=== PATIENT | female | born 1940 | race Caucasian/White ===

== ENCOUNTER 2016-06-09 06:17 | Day surgery (SDC) | payer MEDICARE ==
[2016-06-07 13:32] LABS: HEMATOCRIT 38.8 % (36.0-48.0); HEMOGLOBIN 12.3 g/dL (12-16); MCH 30.4 pg (26.0-34.0); MCHC 31.7 g/dL (31.0-37.0); MEAN PLATELET VOLUME 11.1 fL (7.4-10.4); RBC 4.04 10x6/uL (4.00-5.40); RDW 14.2 % (11.5-14.5); WBC 4.1 10x3/uL (4.8-10.8)
[2016-06-07 13:48] LABS: ANION GAP 7.4 mmol/L (8-16); CARBON DIOXIDE 35.6 mmol/L (21.0-32.0); CREATININE - SERUM 1.5 mg/dL (0.6-1.3)
[~2016-06-09] VITALS: Ht 165.1 cm; Wt 115.7 kg
[~2016-06-09 06:17] MED LIST: ACTOS45 MG PO; AMBIEN5 MG PO; ASPIRIN EC81 M1 PO; BACTRIM DS TABL1 TAB PO; CALTRATE-600600 MG PO; CELEXA10 MG PO; COUMADIN7.5 MG PO; EC-NAPROSYN500 MG PO; FERROUS SULFAT325 MG PO; GLIPIZIDE10 MG PO; GLUCOTROL XL 1010 MG PO; HUMULIN N100 U/ML SC; HUMULIN R100 U/ML SC; HYDROCHLOROTH12.5 M1 PO; HYDROCODONE-APA1 TA3 PO; HYDROCODONE-APA1 TAB PO; IPRAT-ALBUT 0.5-3 ML UPD; K-DUR20 MEQ; K-DUR20 MEQ PO; LASIX40 MG PO; LEVAQUIN500 MG PO; LIPITOR10 MG PO; LOVENOX INJ100 MG/ML SC; LOVENOX30 MG/0.3 SC; MEVACOR20 MG PO; MONOPRIL10 MG PO; MUCINEX DM ER1 EAC1 PO; NEURONTIN600 MG PO; NEURONTIN800 MG PO; NORCO 7.5/325 T1 TA1 PO; NOVOLIN N100 U/ML SQ; PERCOCET 5-3251 TAB PO; PHENAZOPYRIDIN200 MG PO; PLAVIX75 MG PO; PRILOSEC20 MG PO; PROCARDIA XL60 MG PO; PROMETHAZINE W473 M1 PO; PROTONIX40 MG PO; RESTORIL15 MG PO; TESSALON PERLE100 MG PO; VIBRAMYCIN 100100 MG PO; ZANAFLEX4 MG PO
[2016-06-09 14:02] VITALS: BP 144/58; Ht 165.1 cm; Wt 115.7 kg
[2016-06-09] MEDS ORDERED: HYDROCODONE-APA1 TAB PO (15:37)
--- NOTE | 2016-06-09 18:00 | NUR ---
1740 V/S STABLE LEFT WRIST DRESSING C/D/I AND DRESSING C/D/I NO BLEEDING ARM ICED AND ELEVATED.M WIGGLES FINGERS. LT ARM IN SLING. C/L IN REACH FAMILY PRESENT. VOIDED AND HAS PULLUP ON.
--- NOTE | 2016-06-09 18:02 | NUR ---
1745 DISCHARGE INSTRUCTIONS GIVEN. BLOCK INFO SCRIPT GONE OVER. INSTRUCTED TO ICE AND ELEVATE AND KEEP SLING ON WHILE UP TIL TOTAL FEELING IS BACK IN LT ARM. NAIL BEDS COLOR PINK WIGGLES FINGERS. WENT OVER FOLLOW UP APPOINTMENT AND TO CONTINUE HOME MEDS AND DIET. VERBALLY UNDERSTANDS.
--- NOTE | 2016-06-09 18:17 | NUR ---
1800 TO HOME VIA W/C WITH FAMILY.
--- NOTE | 2016-06-10 11:39 | OP ---
PATIENT NAME: AVI GROVES MEDICAL RECORD: [id number] :40 LOCATION:D.OPS ADMISSION DATE: SURGEON: CHRIS GARCIA MD DATE OF OPERATION: 06/09/2016 Orthopedic Surgery Operative Note PREOPERATIVE DIAGNOSIS: Intra-articular comminuted distal radius fracture of the left wrist. POSTOPERATIVE DIAGNOSIS: Intraarticular comminuted distal radius fracture of the left wrist. PROCEDURE: Open reduction internal fixation of the intraarticular comminuted distal radius fracture of the left wrist. SURGEON: Chris Garcia MD. ANESTHESIA: General. INTRAOPERATIVE COMPLICATIONS: None. SUMMARY OF PATHOLOGIC FINDINGS: The patient had a fracture that extended between the scaphoid and lunate fossae and it had loss of volar tilt. OPERATIVE SUMMARY IN DETAIL: After obtaining the appropriate preoperative orthopedic surgery consents as well as anesthetic consultation, evaluation and clearance, the patient was brought to the operating room and placed on the operating table in supine position. After general laryngeal mask was administered, tourniquet was placed about the proximal aspect of the left upper extremity. Left upper extremity was then prepped and draped in routine sterile fashion. The arm was elevated and exsanguinated, tourniquet inflated to 250 mmHg. Curvilinear incision was made in keeping with a volar's Harshal approach. Dissection was taken down along the flexor carpi radialis, used this as a landmark, it was gently dissected down. The carpal canal was completely opened up into the palmar aspect of the hand and released. The median nerve was retracted to the ulnar aspect, pronator quadratus was taken down. The fracture was identified. Reduction maneuver was performed under fluoroscopy. The plate was put in place while the reduction was held near anatomic position. Serial and sequential drill and fill technique was done with the small VariAx plate under fluoroscopic guidance. Having completed this, final radiographs were submitted for radiologist's review, AP and lateral planes. Wound was then irrigated and closed with 2-0 Vicryl and 4-0 Prolene in running fashion. Sterile dressings were applied. Tourniquet was deflated. A 3 x 12 volar splint was applied. The patient was awakened, taken to recovery room in stable condition. All final needle and sponge counts were correct. TRANSINT:[id number] Voice Confirmation ID: [id number] DOCUMENT ID: [id number] OPERATIVE REPORT [id number] AVI GROVES MD, CHRIS DAVENPORT at 1139 CC: [id number] DICTATION DATE: 06/09/162031 ASSISTANT PROFESSOR: 06/10/16 0228 [facility] 06/09/16 [place] [id number] [place] [id number]
== END 2016-06-09 18:00 | disposition home or self-care (01) ==
LOC: D.OPS 06:17 → D.PAN 13:45 → D.OPS 13:45
PROVIDERS: Anesthesiology
DX: S52.572A Other intraarticular fracture of lower end of left radius, initial encounter for closed fracture (principal); I25.10 Atherosclerotic heart disease of native coronary artery without angina pectoris; I10 Essential (primary) hypertension; K21.9 Gastro-esophageal reflux disease without esophagitis; Z95.5 Presence of coronary angioplasty implant and graft; G47.30 Sleep apnea, unspecified; E66.9 Obesity, unspecified; E11.9 Type 2 diabetes mellitus without complications; Z01.812 Encounter for preprocedural laboratory examination

== ENCOUNTER 2017-03-16 06:33 | Day surgery (SDC) | payer MEDICARE ==
[~2017-03-16] VITALS: Ht 165.1 cm; Wt 116.1 kg
--- NOTE | ~2017-03-16 | OP ---
PATIENT NAME: AVI GROVES MEDICAL RECORD: [id number] :40 LOCATION:D.OPS ADMISSION DATE: SURGEON: JUAN ARREGUIN MD DATE OF OPERATION: 03/16/2017 PREOPERATIVE DIAGNOSES: 1. Bleeding external hemorrhoids. 2. Coronary artery disease. 3. Hypertension. 4. Hyperlipidemia. 5. Congestive heart failure, undifferentiated. 6. Diabetes mellitus. POSTOPERATIVE DIAGNOSES: 1. Bleeding external hemorrhoids. 2. Coronary artery disease. 3. Hypertension. 4. Hyperlipidemia. 5. Congestive heart failure, undifferentiated. 6. Diabetes mellitus. PROCEDURE: PPH stapled hemorrhoidectomy. SURGEON: Juan Arreguin MD REPORT OF PROCEDURE: The patient was placed in the jackknife prone position after spinal anesthesia was obtained. We did a 360 degree inspection of the perianal region using a Hill-Joshua retractor. There were noted to be hemorrhoids present circumferentially with no sign of any active bleeding currently. The hemorrhoids were mainly internal, but had mixed component. The PPH anoscope was then inserted and sutured down on all 4 sides using interrupted 3-0 silk. Using this, we were able to place a pursestring in the distal rectum using 2-0 Prolene. The PPH stapler was inserted into the anus and distal rectum and fired after we had determined that there was no connection of the tissue with the posterior wall of the vagina. The ring of tissue, which was removed was complete. At the conclusion of the case, there was no sign of any bleeding from the staple line. We irrigated out the anus thoroughly with normal saline and then inserted a piece of Gelfoam dipped in Americaine. The anoscope was then removed. COMPLICATIONS: None. CONDITION: Stable. ANESTHESIA: Spinal. BLOOD LOSS: Minimal. TRANSINT:[id number] Voice Confirmation ID: [id number] DOCUMENT ID: [id number] OPERATIVE REPORT [id number] GROVES,NBACaro JUAN ARREGUIN MD CC: XIMENA DIETRICH [id number] DICTATION DATE: 03/16/17 0939 SIGN WRITER LETTERER OR PAINTER: 03/16/17 1033 [facility] [address] [place] [address]
[~2017-03-16 06:33] MED LIST changes: +OMEPRAZOLE20 M1 PO
[2017-03-16 07:33] LABS: BASOPHILS 0.9 % (0-2); EOSINOPHILS 2.5 % (0-7); HEMATOCRIT 36.8 % (36.0-48.0); HEMOGLOBIN 11.9 g/dL (12-16); LYMPHOCYTES 34.8 % (15-50); MCH 30.7 pg (26.0-34.0); MCHC 32.3 g/dL (31.0-37.0); MCV 95.1 fL (80.0-100.0); MEAN PLATELET VOLUME 11.2 fL (7.4-10.4); MONOCYTES 11.5 % (2-11); NEUTROPHILS 50.3 % (40-80); PLATELET COUNT 157 10x3/uL (130-400); RBC 3.87 10x6/uL (4.00-5.40); WBC 3.2 10x3/uL (4.8-10.8)
[2017-03-16 07:36] VITALS: BP 153/76; Ht 165.1 cm; Wt 116.1 kg
[2017-03-16 07:48] LABS: ANION GAP 11.4 mmol/L (8-16); CALCIUM 8.9 mg/dL (8.5-10.1); CARBON DIOXIDE 30.4 mmol/L (21.0-32.0); CREATININE - SERUM 1.4 mg/dL (0.6-1.3); POTASSIUM - SERUM 3.8 mmol/L (3.5-5.1)
[2017-03-16] MEDS ORDERED: HYDROCODONE-APA1 TAB PO (09:35)
== END 2017-03-16 14:50 | disposition home or self-care (01) ==
LOC: D.OPS 06:33
PROVIDERS: Anesthesiology
DX: K64.4 Residual hemorrhoidal skin tags (principal); I25.10 Atherosclerotic heart disease of native coronary artery without angina pectoris; I11.0 Hypertensive heart disease with heart failure; I50.9 Heart failure, unspecified; E78.5 Hyperlipidemia, unspecified; E11.9 Type 2 diabetes mellitus without complications; Z01.812 Encounter for preprocedural laboratory examination

== ENCOUNTER 2017-10-06 08:29 | Outpatient (CLI) | payer MEDICARE ==
[~2017-10-06] VITALS: Ht 165.1 cm; Wt 115.9 kg
--- NOTE | ~2017-10-06 | OP ---
PATIENT NAME: AVI GROVES MEDICAL RECORD: [id number] :40 LOCATION:D.CAT ADMISSION DATE: SURGEON: RUSSELL GRACE MD DATE OF OPERATION: 10/06/2017 PROCEDURES: 1. PTCA and stent of LAD. 2. Left heart catheterization. 3. Selective coronary angiography. 4. Left ventriculogram. INDICATION: Angina and coronary artery disease. PROCEDURE IN DETAIL: After informed consent was obtained and after detailed explanation of risks, benefits as well as alternative therapies, the patient elected to proceed with angiogram and angioplasty. The right femoral area was prepped and draped in normal sterile fashion. The right femoral artery was cannulated via modified Seldinger technique with placement of 6-Azeri sheath. All catheters exchanged through this sheath. FINDINGS: The left ventriculogram was performed in standard 30-degree JUDD view, reveals good cardiac wall motion throughout all segments. Overall ejection fraction estimated at 55%. SELECTIVE CORONARY ANGIOGRAPHY: 1. Left main is with no significant angiographic disease. 2. Left anterior descending has previously placed stents. There is 85% in-stent restenosis in the mid vessel. 3. Left circumflex has mild irregularities, but no flow-limiting stenosis. 4. Right coronary has mild irregularities, but no flow-limiting stenosis. PTCA AND STENT OF THE LAD FOR IN-STENT RESTENOSIS: The stent used was a 2.5 x 18-mm Sutton. Result was 0% residual stenosis. OVERALL IMPRESSION: Successful PTCA and stent of the LAD going from 85% initial stenosis to 0% residual. TRANSINT:[id number] Voice Confirmation ID: [id number] DOCUMENT ID: [id number] RUSSELL GRACE MD at 1843 CC: [id number] DICTATION DATE: 10/06/17 1049 WEB PRESS OPERATOR ASSISTANT: 10/06/17 1055 DEP CLI 10/06/17 [place] [id number]
--- NOTE | ~2017-10-06 | HEMODYNAMI ---
PATIENT:AVI GROVES MEDICAL RECORD: [id number] : 40 LOCATION:CANDY ADMISSION DATE: 10/06/17 Generatedon:10/06/201710:53 Patient name: AVI GROVES Patient #: [id number] SSN: DO B: 1940 Date of study: 10/06/2017 Page: Of Hemodynamic Procedure Report Patient Data Patient Demographics Procedure consent was obtained First Name: AVI Gender: Female Last Name: GERMAIN : 1940 Patient #: [id number] Age: 77 year(s) Race: Additional ID: [id number] Contact details [address]: [address] [place] [address] State: [place] City: [place] Zip code: [address] Past Medical History History of disease Date Diagnosis Comments CAD Allergies: No known allergies Admission Admission Data Admission Date: 10/06/2017 Admission Time: 8:29 Procedure Procedure Types Cath Procedure Diagnostic Procedure [facility] w/Coronaries PCI Procedure Coronary Stent Coronary Stent Initial Procedure Description Procedure Date Procedure Date: 10/06/2017 Procedure Start Time: 10:35 Procedure End Time: 10:52 Procedure Staff Name Function Juice Roy MD Performing Physician Tj Escalona RT Marketing Program Manager Chelo Benito RT Monitor Corazon Ball RN Nurse China Boogie RT Scrub Procedure Data Cath Procedure Fluoroscopy Diagnostic fluoroscopy Total fluoroscopy Time: 1.8 time: 1.8 min min Diagnostic fluoroscopy Total fluoroscopy dose: 582 dose: 582 mGy mGy Contrast Material Contrast Material Type Amount (ml) Isovue 300 62 Entry Location Entry Primary Successful Side Size Upsize Upsize Entry Closure Succes sful Closure Location (Fr) 1 (Fr) 2 (Fr) Remarks Device Remarks Femoral Right 5 Fr 6 Fr Exoseal artery Short Estimated blood loss: 10 ml Diagnostic catheters Device Type Used For End Catheter Placement MULTIPACK Pigtail 5 Fr LV Angiography catheter MULTIPACK JL 4.0 5Fr Left Coronary catheter Angiography MULTIPACK 3DRC 5Fr Right Coronary catheter Angiography Procedure Complications No complications Procedure Medications Medication Administration Route Dosage Oxygen etCO2 Nasal cannula 2 l/min Lidocaine 2% added to field 20 Heparin Flush Bag added to field 2 bags (1000units/500ml NS) 0.9% NaCl I.V. 100 ml/hr Versed I.V. 1 mg Fentanyl I.V. 50 mcg Versed I.V. 1 mg Fentanyl I.V. 50 mcg Heparin Bolus I.V. 4000 units Integrilin (Bolus I.V. 10.7 ml 2mg/ml) Versed I.V. 1 mg Fentanyl I.V. 50 mcg Plavix P.O. 600 mg Hemodynamics Rest Heart Rate: 75 (bpm) Snapshots Pre Cath Intra NCS Post Cath Vital Signs Time Heart Resp SPO2 etCO2 NIBP (mmHg) Rhythm Pain Sedation Rate (ipm) (%) (mmHg) Status Level (bpm) 10:30:13 72 12 100 42.8 Measuring NSR 0 (11) 10(A) , No pain 10:30:33 72 19 100 42.8 186/79(150) NSR 0 (11) 10(A) , No pain 10:35:57 74 13 99 47.3 173/75(153) NSR 0 (11) 10(A) , No pain 10:41:12 86 16 96 36 146/87(130) NSR 0 (11) 9(A) , No pain 10:46:11 86 12 97 45.1 Measuring NSR 0 (11) 9(A) , No pain 10:50:52 83 9 97 48.1 198/102(156) NSR 0 (11) 10(A) , No pain Medications Time Medication Route Dose Verified Delivered Reason Notes Effectiveness by by 10:32:27 Oxygen etCO2 2 Juice Brandieie used for Nasal l/min Kirill Ball RN procedure cannula 10:32:33 Lidocaine 2% added 20ml Juice Bose for local to vial Kirill Roy MD anesthetic field 10:32:41 Heparin Flush added 2 Juice Juice used for Bag to bags Kirill Roy MD procedure (1000units/500ml field NS) 10:32:50 0.9% NaCl I.V. 100 Juice Buffie Per physician ml/hr Kirill Ball RN 10:33:29 Versed I.V. 1 mg Juice Diegoie for sedation Kirill Ball RN 10:33:34 Fentanyl I.V. 50 Juice Buffie for sedation mcg Kirill Ball RN 10:36:23 Versed I.V. 1 mg Juice Diegoie for sedation Kirill Ball RN 10:36:27 Fentanyl I.V. 50 Juice Buffie for sedation mcg Kirill Ball RN 10:40:32 Heparin Bolus I.V. 4000 Juice Diegoie for verif ied units Kirill Ball RN anticoagulation with dr roy 10:42:26 Integrilin I.V. 10.7 Juice Diegoie for (Bolus 2mg/ml) ml Kirill Ball RN antiplatelet therapy 10:46:43 Versed I.V. 1 mg Juice Diegoie for sedation Kirill Ball RN 10:46:52 Fentanyl I.V. 50 Juice Diegoie for sedation mcg Kirill Ball RN 10:49:23 Plavix P.O. 600 Juice Chandra for mg Kirill Ball RN antiplatelet therapy Procedure Log Time Note 10:09:05 Tj Escalona RT(R) sent for patient. Start room use. 10:09:06 Time tracking: Regular hours (M-F 7:00 - 5:00) 10:09:10 Plan of Care:Hemodynamics will remain stable., Cardiac rhythm will remain stable., Comfort level will be maintained., Respiratory function will remain adequate., Patient/ family verbilizes understanding of procedure., Procedure tolerated without complication., Recovers from procedure without complications.. 10:13:02 Zero performed for pressure channel P1 10:16:25 Patient received from Pre/Post Procedure Room to CCL 1 Alert and oriented. Tansferred to table in Supine position. 10:16:26 Warm blankets applied, and saul hugger turned on for patient comfort. 10:16:26 Correct patient and procedure confirmed by team. 10:16:28 Signed procedure consent form obtained from patient. 10:16:29 ECG and BP/O2 sat monitors applied to patient. 10:16:29 Full Disclosure recording started 10:29:04 Vital chart was started 10:29:07 Rhythm: sinus rhythm 10:29:24 H&P Date Dictated: 09/19/2017 Within 30 days and on chart., H&P Addendum completed by physician on day of procedure. (MUST COMPLETE FOR ALL OUTPATIENTS). 10:29:26 Pre-procedure instructions explained to patient. 10:29:27 Pre-op teaching completed and patient verbalized understanding. 10:29:30 Family in patients room. 10:29:32 Patient NPO since Midnight. 10:29:38 Patient allergic to No known allergies 10:29:40 Is the patient allergic to Iodine/contrast media? No. 10:29:43 Is patient on blood thinner?No 10:29:45 Patient diabetic? Yes. 10:29:46 If diabetic: On Metformin? No 10:29:49 Previous problem with sedation/anesthesia? No ? 10:29:49 Snore? Yes 10:29:51 Sleep apnea? No 10:29:52 Deviated septum? No 10:29:53 Opens mouth fully? Yes 10:29:53 Sticks out tongue? Yes 10:29:56 Airway obstruction? No ? 10:29:58 Dentures? No ? 10:30:00 Pre procedure: right dorsailis pedis pulse 2+ Normal; easily identifiable; not easily obliterated 10:30:02 Patient pain scale 0/10 ?. 10:30:11 IV patent on arrival in left forearm with 0.9% NaCl at [facility]. 10:30:15 Lab results completed and on chart. 10:30:17 Right groin area was prepped with chlora-prep and draped in sterile fashion 10:30:18 Alarms reviewed by R. N. 10:30:18 Sharps counted by scrub and verified by R.N. 10:30:22 Use device set Femoral Dx 10:30:23 ACIST Syringe (78664) opened to sterile field. 10:30:23 Bag Decanter (2002) opened to sterile field. 10:30:23 Medline Cath Pack ([id number]) opened to sterile field. 10:30:24 DIAGNOSTIC WIRE .035 260cm J wire (012853) opened to sterile field. 10:30:25 ACIST Hand Control (87763) opened to sterile field. 10:30:26 ACIST Manifold (98058) opened to sterile field. 10:30:26 DIAGNOSTIC Multipack 5Fr catheter set (EF7822) opened to sterile field. 10:30:27 Tegaderm 4 x 4 (1626W) opened to sterile field. 10:30:29 SHEATH Prelude 5Fr 0.035 (QDW-3U-82-035) opened to sterile field. 10:32:27 Oxygen 2 l/min etCO2 Nasal cannula was administered by Corazon Ball RN; used for procedure; 10:32:33 Lidocaine 2% 20ml vial added to field was administered by Juice Roy MD; for local anesthetic; 10:32:41 Heparin Flush Bag (1000units/500ml NS) 2 bags added to field was administered by Juice Roy MD; used for procedure; 10:32:50 0.9% NaCl 100 ml/hr I.V. was administered by Corazon Ball RN; Per physician; 10:32:59 Zero performed for pressure channel P1 10:33:05 Final Timeout: patient, procedure, and site verified with staff and physician. All members of the team are in agreement. 10:33:06 Right groin site verified by team. 10:33:10 Physical assessment completed. ASA score P 2 - A patient with mild systemic disease as per Juice Roy MD. 10:33:13 Sedation plan: IV Moderate Sedation Medication:Versed, Fentanyl 10:33:29 Versed 1 mg I.V. was administered by Corazon Ball RN; for sedation; 10:33:34 Fentanyl 50 mcg I.V. was administered by Corazon Ball RN; for sedation; 10:35:45 Procedure started. 10:35:48 Local anesthetic to right femoral artery with Lidocaine 2% by Juice Roy MD.INITIAL ACCESS ONLY 10:36:23 Versed 1 mg I.V. was administered by Corazon Ball RN; for sedation; 10:36:25 A 5 Fr sheath was inserted into the Right Femoral artery 10:36:27 Fentanyl 50 mcg I.V. was administered by Corazon Ball RN; for sedation; 10:36:53 A MULTIPACK Pigtail 5 Fr catheter was advanced over the wire and used for LV Angiography. 10:36:54 Baseline sample Acquired. 10:37:41 LV gram done using JUDD 10:37:45 EF : 60 % 10:37:48 Injector settings: Ml/sec: 10, Volume: 20, 10:37:50 Catheter removed. 10:38:02 A MULTIPACK JL 4.0 5Fr catheter was advanced over the wire and used for Left Coronary Angiography. 10:38:46 Catheter removed. 10:39:10 A MULTIPACK 3DRC 5Fr catheter was advanced over the wire and used for Right Coronary Angiography. 10:39:14 Use device set KIRILL PCI 10:39:16 INFLATOR Merit Genevievepak (OD6328) opened to sterile field. 10:39:18 CHOICE PT Extra Support 182cm wire ([id number]) opened to sterile field. 10:39:20 SHEATH Prelude 6Fr 0.035 (YFO-8E-32-035) opened to sterile field. 10:39:59 Catheter removed. 10:40:03 GUIDE 6FR XBLAD 3.5 catheter ([id number]) opened to sterile field. 10:40:32 Heparin Bolus 4000 units I.V. was administered by Corazon Ball RN; for anticoagulation; verified with dr roy 10:41:06 Sheath upsized to a 6 Fr Short. 10:41:16 6 Fr XBLAD 3.5 guide catheter was inserted over the wire 10:42:08 CHOICE PT ES wire advanced. 10:42:26 Integrilin (Bolus 2mg/ml) 10.7 ml I.V. was administered by Corazon Ball RN; for antiplatelet therapy; 10:43:15 Place stent Inflation Number: 1 A GARO RX 2.5 x 18 stent ([id number]) was prepped and advanced across the Mid LAD. The stent was deployed at 15 DELLA for 0:10 (min:sec). 10:43:26 Stent catheter was removed intact over wire. 10:43:27 Wire removed. 10:43:27 Guide catheter removed. 10:43:38 Sheath removed intact; hemostasis achieved with Exoseal to the Right Femoral artery. 10:43:47 Procedure ended.(Physican Out) 10:43:58 EXOSEAL 6Fr (EX600) opened to sterile field. 10:44:13 Fluoroscopy time 01.80 minutes. 10:44:20 Fluoroscopy dose: 582 mGy 10:44:20 Flurop Dose total: 582 10:44:23 Contrast amount:Isovue 300 62ml. 10:44:24 Sharps counted by scrub and verified by R.N. 10:44:26 Insertion/operative site no bleeding no hematoma. 10:44:29 Post-op/insertion site Right Femoral artery dressed using a 4 x 4 and Tegaderm. 10:44:32 Post right femoral artery:stable, clean and dry 10:44:33 Post Procedure Pulses reassessed and unchanged 10:44:36 Post-procedure physical assessment completed. ASA score P 2 - A patient with mild systemic disease as per Juice Roy MD. 10:44:38 Post procedure rhythm: unchanged. 10:44:41 Estimated blood loss: 10 ml 10:44:42 Post procedure instruction explained to patient.Patient verbalizes understanding. 10:44:42 Patient needs reinforcement of post procedure teaching. 10:44:49 Procedure type changed to Cath procedure, Diagnostic procedure, LHC, LHC w/Coronaries, PCI procedure, Coronary Stent, Coronary Stent Initial 10:44:54 Procedure Complication : No complications 10:44:57 See physician's report for complete and final results. 10:46:03 Procedure and supply charges have been captured, reviewed, submitted and are correct. 10:46:43 Versed 1 mg I.V. was administered by Corazon Ball RN; for sedation; 10:46:52 Fentanyl 50 mcg I.V. was administered by Corazon Ball RN; for sedation; 10:49:23 Plavix 600 mg P.O. was administered by Corazon Ball RN; for antiplatelet therapy; 10:51:05 Vital chart was stopped 10:51:07 Report given to Pre/Post Procedure Room. 10:51:09 Patient transfered to Pre/Post Procedure Room with Stretcher. 10:52:21 Procedure ended. 10:52:21 Full Disclosure recording stopped 10:52:26 End room use (Document Last) Intervention Summary Intervention Notes Time ActionType Lesion and Equipment Used Action# Pressure Duration Attributes 10:43:15 Place stent Mid LAD GARO RX 2.5 x 1 15 00:10 18 stent ([id number]) Device Usage Item Name Manufacture Quantity Catalog Number Hospital Part Current Minimal Lot# / Charge Number Stock Stock Serial# Code ACIST Syringe Acist 1 17351 [id number] [id number] 140293 20 (36769) [employer] Bag Decanter Microtek 1 2001S [id number] 36002 212850 5 () Medical Inc. Medline Cath Cardinal 1 [id number] 926773 26876 590715 5 [facility] ([id number]) DIAGNOSTIC WIRE St Eric 1 637581 456130 435445 968959 30 .035 260cm J wire (113337) ACIST Hand Acist 1 02959 134975 146381 565413 5 Control (47318) [employer] Inc ACIST Manifold Acist 1 08769 541824 533831 158545 5 (26120) [employer] Inc DIAGNOSTIC Cardinal 1 SV6609 487313 91104 462897 30 Multipack 5Fr Health catheter set (BO4350) Tegaderm 4 x 4 3M 1 1626W 620792 229782 670475 5 (1626W) SHEATH Prelude Merit 1 YEO-2I-21-035 728640 884968 379125 5 5Fr 0.035 Medical (GFM-4U-61-035) MULTIPACK Cardinal 1 859854 5 Pigtail 5 Fr Health catheter MULTIPACK JL Cardinal 1 711601 5 4.0 5Fr Health catheter MULTIPACK 3DRC Cardinal 1 779491 5 5Fr catheter Health INFLATOR Merit Merit 1 LQ3358 119831 876372 871787 15 Post-i (DG7370) CHOICE PT Extra [place] 1 [id number] 725470 994023 052938 5 Support 182cm Scientific wire ([id number]) SHEATH Prelude Merit 1 UOT-2M-83-35 498703 3758228 213872 5 6Fr 0.035 Medical (GRT-1D-75-035) GUIDE 6FR XBLAD Cardinal 1 [id number] 264791 761866 595883 10 3.5 catheter Health ([id number]) GARO RX 2.5 x Medtronic 1 [id number] 844529 5872633 939791 5 [id number] 18 stent ([id number]) EXOSEAL 6Fr Cardinal 1 EX600 612464 077746 358324 10 (EX600) Health Signature Audit [place] Stage Time Signature Unsigned Intra-Procedure 10/06/2017 Chelo 10:53:11 AM Counts RT(R) Signatures Monitor : Chelo Signature : Counts RT Date : Time : [place] [id number] [place] [address]
[2017-10-06 09:25] VITALS: BP 198/78; Ht 165.1 cm; Wt 115.9 kg
[2017-10-06 09:37] LABS: BASOPHILS 0.7 % (0-2); EOSINOPHILS 3.6 % (0-7); HEMATOCRIT 38.8 % (36.0-48.0); HEMOGLOBIN 12.6 g/dL (12-16); IMMATURE GRANULOCYTES 0.3 % (0-5); LYMPHOCYTES 37.9 % (15-50); MCH 30.7 pg (26.0-34.0); MCHC 32.5 g/dL (31.0-37.0); MCV 94.4 fL (80.0-100.0); MEAN PLATELET VOLUME 11.7 fL (7.4-10.4); MONOCYTES 12.6 % (2-11); NEUTROPHILS 44.9 % (40-80); PLATELET COUNT 177 10x3/uL (130-400); RBC 4.11 10x6/uL (4.00-5.40); RDW 13.7 % (11.5-14.5); WBC 5.9 10x3/uL (4.8-10.8)
[2017-10-06 09:44] LABS: CALCIUM 8.6 mg/dL (8.5-10.1); CARBON DIOXIDE 28.9 mmol/L (21.0-32.0); CREATININE - SERUM 1.7 mg/dL (0.6-1.3); POTASSIUM - SERUM 3.9 mmol/L (3.5-5.1)
[2017-10-06] MEDS ORDERED: PLAVIX75 MG PO (11:04)
== END 2017-10-06 14:45 | disposition home or self-care (01) ==
LOC: D.CATH 08:29
PROVIDERS: Internal Medicine Interventional Cardiology
DX: I25.119 Atherosclerotic heart disease of native coronary artery with unspecified angina pectoris (principal); T82.855A Stenosis of coronary artery stent, initial encounter; Z01.812 Encounter for preprocedural laboratory examination
CPT/HCPCS: 93458; C9600

== ENCOUNTER 2017-11-13 11:03 | Outpatient (CLI) | payer MEDICARE ==
[~2017-11-13] VITALS: Ht 165.1 cm; Wt 114.4 kg
--- NOTE | ~2017-11-13 | DS ---
PATIENT:AVI TEE :40 MEDICAL RECORD: [id number] DISCHARGE SUMMARY ADMISSION DATE: 11/13/17 DISCHARGE DATE: 11/15/17 DISCHARGE DATE OF SERVICE: 11/15/2017 DISCHARGE DIAGNOSES: 1. Unstable angina. 2. Coronary artery disease. 3. Percutaneous transluminal coronary angioplasty stent left anterior descending and left circumflex this admission. 4. Hypertension. 5. Hyperlipidemia. HOSPITAL COURSE: Mrs. Tee presents with anginal symptomatology, found to have 2-vessel disease of the left circumflex and LAD, underwent successful PTCA stent of both territories, had to discharge home, continue aspirin and Plavix from her medical regimen. Follow up with [facility] in 1 month. TRANSINT:[id number] Voice Confirmation ID: [id number] DOCUMENT ID: [id number] RUSSELL GRACE MD at 0924 CC: [id number] DICTATION DATE: 11/15/17 08 [employer] DESIGNS SALES REPRESENTATIVE: 11/15/172040 DIS IN 11/15/17 [place] [id number] [place] [id number]
--- NOTE | ~2017-11-13 | HEMODYNAMI ---
PATIENT:AVI GROVES MEDICAL RECORD: [id number] : 40 LOCATION:[facility] D.2126 ADMISSION DATE: 11/13/17 Generatedon:11/15/20178:05 Patient name: AVI GROVES Patient #: [id number] SSN: DO B: 1940 Date of study: 11/15/2017 Page: Of Hemodynamic Procedure Report Patient Data Patient Demographics Procedure consent was obtained First Name: AVI Gender: Female Last Name: GERMAIN : 1940 Patient #: [id number] Age: 77 year(s) Race: Additional ID: [id number] Contact details [address]: [address] [place] [address] State: [place] City: [place] Zip code: [address] Past Medical History History of disease Date Diagnosis Comments CAD Allergies: No known allergies Admission Admission Data Admission Date: 11/13/2017 Admission Time: 14:09 Room #: D.2126 Lab Results Lab Result Date: 11/14/2017 Lab Result Time: 0:00 Biochemistry Name Units Result Min Max BUN mg/dl 24 --(----)-* 7 18 Creatinine mg/dl 1 --(--*-)-- 0.6 1.3 CBC Name Units Result Min Max Hemoglobin g/dl 12.9 -*(----)-- 13.5 17.5 Procedure Procedure Types Cath Procedure PCI Procedure Coronary Stent Coronary Stent Initial Procedure Description Procedure Date Procedure Date: 11/15/2017 Procedure Start Time: 7:54 Procedure End Time: 8:04 Procedure Staff Name Function Juice Roy MD Performing Physician Chelo Benito RT Monitor Fox Lange RN Nurse John Bailey RT Scrub Procedure Data Cath Procedure Fluoroscopy Diagnostic fluoroscopy Total fluoroscopy Time: 1.4 time: 1.4 min min Diagnostic fluoroscopy Total fluoroscopy dose: 285 dose: 285 mGy mGy Contrast Material Contrast Material Type Amount (ml) Isovue 300 31 Entry Location Entry Primary Successful Side Size Upsize Upsize Entry Closure Succes sful Closure Location (Fr) 1 (Fr) 2 (Fr) Remarks Device Remarks Femoral Right 6 Fr Exoseal artery Short Estimated blood loss: 10 ml Procedure Complications No complications Procedure Medications Medication Administration Route Dosage Oxygen etCO2 Nasal cannula 2 l/min Heparin Flush Bag added to field 2 bags (1000units/500ml NS) 0.9% NaCl I.V. 100 ml/hr Plavix P.O. 75 mg Fentanyl I.V. 50 mcg Versed I.V. 1 mg Versed I.V. 1 mg Heparin Bolus I.V. 4000 units Fentanyl I.V. 50 mcg Hemodynamics Rest Heart Rate: 67 (bpm) Snapshots Pre Cath Intra NCS Post Cath Vital Signs Time Heart Resp SPO2 etCO2 NIBP (mmHg) Rhythm Pain Sedation Rate (ipm) (%) (mmHg) Status Level (bpm) 7:41:50 91 16 99 40.9 165/81(130) NSR 0 (11) 10(A) , No pain 7:46:18 68 17 97 34.2 166/75(121) NSR 0 (11) 10(A) , No pain 7:50:48 67 17 97 37.2 166/73(123) NSR 0 (11) 10(A) , No pain 7:55:08 66 17 95 32.7 154/78(124) NSR 0 (11) 9(A) , No pain 7:59:37 66 17 95 34.3 148/73(121) NSR 0 (11) 9(A) , No pain 8:03:55 67 17 96 32 162/70(126) NSR 0 (11) 9(A) , No pain Medications Time Medication Route Dose Verified Delivered Reason Notes Effectiveness by by 7:37:24 Oxygen etCO2 2 Juice Braxton Per physician Nasal l/min Kirill Lange RN cannula 7:37:32 Heparin Flush added 2 Juice Braxton used for Bag to bags Kirill Lange crosscutter rolled glass (1000units/500ml field NS) 7:37:41 0.9% NaCl I.V. 100 Juice Braxton Per physician ml/hr Kirill Lange RN 7:41:08 Plavix P.O. 75 mg Juice Braxton for Kirill Lange RN antiplatelet therapy 7:50:09 Fentanyl I.V. 50 Juice Braxton for sedation mcg Kirill Lange RN 7:50:15 Versed I.V. 1 mg Juice Braxton for sedation Kirill Lange RN 7:55:00 Versed I.V. 1 mg Juice Braxton for sedation Kirill Lange RN 7:56:20 Heparin Bolus I.V. 4000 Juice Braxton for units Kirill Lange RN anticoagulation 7:57:13 Fentanyl I.V. [address] sed[address] [facility] Kirill Lange RN Procedure Log Time Note 7:11:13 Fox Lange RN sent for patient. Start room use. 7:20:39 Time tracking: Regular hours (M-F 7:00 - 5:00) 7:20:44 Plan of Care:Hemodynamics will remain stable., Cardiac rhythm will remain stable., Comfort level will be maintained., Respiratory function will remain adequate., Patient/ family verbilizes understanding of procedure., Procedure tolerated without complication., Recovers from procedure without complications.. 7:29:03 Patient received from PCU to [facility] 2 Alert and oriented. Tansferred to table in Supine position. 7:29:05 Warm blankets applied, and saul hugger turned on for patient comfort. 7:29:06 Correct patient and procedure confirmed by team. 7:29:09 Signed procedure consent form obtained from patient. 7:29:10 ECG and BP/O2 sat monitors applied to patient. 7:29:11 Full Disclosure recording started 7:37:24 Oxygen 2 l/min etCO2 Nasal cannula was administered by Fox Lange RN; Per physician; 7:37:32 Heparin Flush Bag (1000units/500ml NS) 2 bags added to field was administered by Fox Lange RN; used for procedure; 7:37:41 0.9% NaCl 100 ml/hr I.V. was administered by Fox Lange RN; Per physician; 7:40:27 Vital chart was started 7:40:30 Rhythm: sinus rhythm 7:41:08 Plavix 75 mg P.O. was administered by Fox Lange RN; for antiplatelet therapy; 7:43:03 Pre-procedure instructions explained to patient. 7:43:04 Pre-op teaching completed and patient verbalized understanding. 7:43:07 Family in patients room. 7:43:08 Patient NPO since Midnight. 7:45:03 Is the patient allergic to Iodine/contrast media? No. 7:45:05 Is patient on blood thinner?Yes 7:45:07 ACC The patient was administered the following blood thiners within the last 24 hours: ACCPlavix 7:45:10 Patient diabetic? No. 7:45:13 Previous problem with sedation/anesthesia? No ? 7:45:14 Snore? Yes 7:45:15 Sleep apnea? Yes 7:45:16 Deviated septum? No 7:45:17 Opens mouth fully? Yes 7:45:17 Sticks out tongue? Yes 7:45:19 Airway obstruction? No ? 7:45:21 Dentures? No ? 7:45:25 Pre procedure: left dorsailis pedis pulse 1+ Palpable, but thready & weak; easily obliterated 7:45:28 Patient pain scale 0/10 ?. 7:45:44 IV patent on arrival in right forearm with 0.9% NaCl at O. 7:45:46 Lab results completed and on chart. 7:45:50 Left groin area was prepped with chlora-prep and draped in sterile fashion 7:45:51 Alarms reviewed by R. N. 7:45:51 Sharps counted by scrub and verified by R.N. 7:45:58 Use device set CATH PACK 7:46:00 Use device set TAUTH PCI 7:46:02 SHEATH Prelude 6Fr 0.035 (SIN-5Q-87-035) opened to sterile field. 7:46:06 ACIST Syringe (93817) opened to sterile field. 7:46:06 ACIST Hand Control (98543) opened to sterile field. 7:46:06 ACIST Manifold (05013) opened to sterile field. 7:46:07 Medline Cath Pack ([id number]) opened to sterile field. 7:46:07 Bag Decanter (2002) opened to sterile field. 7:46:08 DIAGNOSTIC WIRE .035 260cm J wire (193903) opened to sterile field. 7:46:08 INFLATOR Merit BasixCompak (JN5018) opened to sterile field. 7:46:11 CHOICE PT Extra Support 182cm wire ([id number]) opened to sterile field. 7:46:17 Tegaderm 4 x 4 (1626W) opened to sterile field. 7:48:56 Final Timeout: patient, procedure, and site verified with staff and physician. All members of the team are in agreement. 7:48:58 Left groin site verified by team. 7:49:01 Physical assessment completed. ASA score P 2 - A patient with mild systemic disease as per Juice Roy MD. 7:49:04 Sedation plan: IV Moderate Sedation Medication:Versed, Fentanyl 7:49:50 Zero performed for pressure channel P1 7:50:09 Fentanyl 50 mcg I.V. was administered by Fox Lange RN; for sedation; 7:50:15 Versed 1 mg I.V. was administered by Fox Lange RN; for sedation; 7:50:24 Zero performed for pressure channel P1 7:50:28 Zero performed for pressure channel P1 7:50:35 Zero performed for pressure channel P1 7:50:38 Zero performed for pressure channel P1 7:51:17 Baseline sample Acquired. 7:54:30 Procedure started. 7:54:34 Local anesthetic to left femerol artery with Lidocaine 2% by Juice Roy MD.INITIAL ACCESS ONLY 7:54:44 A 6 Fr Short sheath was inserted into the Right Femoral artery 7:55:00 Versed 1 mg I.V. was administered by Fox Lange RN; for sedation; 7:55:14 GUIDE 6FR XBLAD 3.5 SH catheter ([id number]) opened to sterile field. 7:55:23 6 Fr XBLAD 3.5 SH guide catheter was inserted over the wire 7:56:12 CHOICE PT ES wire advanced. 7:56:20 Heparin Bolus 4000 units I.V. was administered by Fox Lange RN; for anticoagulation; 7:57:13 Fentanyl 50 mcg I.V. was administered by Fox Lange RN; for sedation; 7:58:02 Place stent Inflation Number: 1 A GARO RX 3.5 x 22 stent ([id number]) was prepped and advanced across the Prox LAD. The stent was deployed at 17 DELLA for 0:13 (min:sec). 7:58:41 Stent catheter was removed intact over wire. 7:58:41 Wire removed. 7:58:44 Guide catheter removed. 7:58:52 Sheath removed intact; hemostasis achieved with Exoseal to the Right Femoral artery. 7:58:57 EXOSEAL 6Fr (EX600) opened to sterile field. 7:59:00 Procedure ended.(Physican Out) 7:59:58 Fluoroscopy time 01.40 minutes. 8:00:02 Flurop Dose total: 285 8:00:02 Fluoroscopy dose: 285 mGy 8:00:04 Contrast amount:Isovue 300 31ml. 8:00:06 Sharps counted by scrub and verified by R.N. 8:00:08 Insertion/operative site no bleeding no hematoma. 8:00:13 Post-op/insertion site Left Femoral artery dressed using a 4 x 4 and Tegaderm. 8:00:18 Post left femerol artery:stable, clean and dry 8:00:22 Post Procedure Pulses reassessed and unchanged 8:00:27 Post-procedure physical assessment completed. ASA score P 2 - A patient with mild systemic disease as per Juice Roy MD. 8:00:29 Post procedure rhythm: unchanged. 8:00:31 Estimated blood loss: 10 ml 8:00:33 Post procedure instruction explained to patient.Patient verbalizes understanding. 8:00:34 Patient needs reinforcement of post procedure teaching. 8:00:49 Procedure Complication : No complications 8:00:52 See physician's report for complete and final results. 8:02:18 Procedure and supply charges have been captured, reviewed, submitted and are correct. 8:04:40 Vital chart was stopped 8:04:43 Report given to PCU. 8:04:46 Patient transfered to PCU with Bed. 8:04:52 Procedure ended. 8:04:52 Full Disclosure recording stopped 8:04:56 End room use (Document Last) Intervention Summary Intervention Notes Time ActionType Lesion and Equipment Used Action# Pressure Duration Attributes 7:58:[address] stent Prox LAD GARO RX 3.5 x 1 17 00:13 22 stent ([id number]) Device Usage Item Name Manufacture Quantity Catalog Number Hospital Part Current Minimal Lot# / Charge Number Stock Stock Serial# Code SHEATH Prelude Merit 1 [id number]-4Q-[id number] [id number] 452070 5 6Fr 0.035 Medical (QUG-0I-[id number]) ACIST Syringe Acist 1 05109 742535 620202 875844 20 (28343) [employer] Inc ACIST Hand Acist 1 59445 020677 247123 764663 5 Control (11533) [employer] Inc ACIST Manifold Acist 1 53350 300993 854513 686188 5 (54569) Medical Systems Inc Medline Cath Cardinal 1 [id number] 173732 62679 215025 5 Wenwo ([id number]) Bag Decanter Microtek 1 2002S 683050 65931 815583 5 (2001S) Medical Inc. DIAGNOSTIC WIRE St Eric 1 699033 792421 647496 839360 30 .035 260cm J wire (108574) INFLATOR Merit Merit 1 BH7587 855485 277202 028957 15 Cem[employer] (SN7071) CHOICE PT Extra [place] 1 [id number] 533182 932207 267725 5 Support 182cm Scientific wire ([id number]) Tegaderm 4 x 4 3M 1 1626W 234769 202321 098934 5 (1626W) GUIDE 6FR XBLAD Cardinal 1 [id number] 257576 016061 532835 3 3.5 SH catheter TrackTik ([id number]) GARO RX 3.5 x Medtronic 1 [id number] 014260 4748965 071243 5 [id number] 22 stent ([id number]) EXOSEAL 6Fr Cardinal 1 EX600 024141 424801 559510 10 (EX600) Health Signature Audit Sharon Stage Time Signature Unsigned Intra-Procedure 11/15/2017 Chelo 8:05:11 AM Counts RT(R) Signatures Monitor : Chelo Signature : Counts RT Date : Time : [id number] [place] [address]
--- NOTE | ~2017-11-13 | OP ---
PATIENT NAME: AVI GROVES MEDICAL RECORD: [id number] :40 LOCATION:D.M2 D.2126 ADMISSION DATE:11/13/17 SURGEON: RUSSELL GRACE MD DATE OF OPERATION: 11/15/2017 PROCEDURES: 1. PTCA stent LAD. 2. Selective coronary angiography. INDICATION: Angina and coronary artery disease. PROCEDURE IN DETAIL: After informed consent was obtained and after a detailed description of the risks, benefits as well as alternative therapies, the patient elected to proceed with angiogram and angioplasty. The left femoral area was prepped and draped in normal sterile fashion. Left femoral artery was cannulated via modified Seldinger technique with placement of 6-Malay sheath. All catheters exchanged through this sheath. FINDINGS: The left anterior descending has 80% stenosis proximally confirmed by intravascular ultrasound yesterday. This is addressed with a 3.5 x 22 mm Alex stent. Result was 0% residual stenosis. OVERALL IMPRESSION: Successful PTCA stent of the left anterior descending going from 80% initial stenosis to 0% residual. TRANSINT:[id number] Voice Confirmation ID: [id number] DOCUMENT ID: [id number] RUSSELL GRACE MD at 0924 CC: [id number] DICTATION DATE: 11/15/17 0803 SENIOR FINANCIAL REPORTING ACCOUNTANT: 11/15/17 1025 DIS IN 11/15/[address] [address]
--- NOTE | ~2017-11-13 | OP ---
PATIENT NAME: AVI GROVES MEDICAL RECORD: [id number] :40 LOCATION:D.M2 D.2126 ADMISSION DATE:11/13/17 SURGEON: RUSSELL GRACE MD DATE OF OPERATION: 11/14/2017 DATE OF SERVICE: 11/14/2017 PROCEDURES: 1. PTCA stent of left circumflex. 2. Intravascular ultrasound of the LAD. 3. Intravascular ultrasound of left circumflex. 4. Intravascular ultrasound of left main. 5. Left heart catheterization. 6. Selective coronary angiography. 7. Left ventriculogram. INDICATION: Angina and coronary artery disease. PROCEDURE PERFORMED: After informed consent was obtained and after detailed description of risks, benefits as well as alternative therapies, the patient elected to proceed with angiogram and angioplasty. The right femoral area was prepped and draped in normal sterile fashion. Right femoral artery was cannulated via modified Seldinger technique with placement of 6-Iranian sheath. All catheters exchanged through this sheath. FINDINGS: Left ventriculogram was performed in standard 30-degree JUDD view, reveals good cardiac wall motion throughout all segments. Overall ejection fraction estimated 60%. SELECTIVE CORONARY ANGIOGRAPHY: 1. Left main is with no significant angiographic disease confirmed by intravascular ultrasound. 2. Paroxysmal LAD has greater than 80% stenosis confirmed by intravascular ultrasound. 3. The left circumflex has greater than 80% stenosis in mid vessel confirmed by intravascular ultrasound. 4. Right coronary has mild to moderate irregularities, but no discrete flow-limiting stenosis. PTCA STENT OF THE LEFT CIRCUMFLEX: The left circumflex is addressed with a 3.0 x 22 mm Gardners stent. Result was 0% residual stenosis. OVERALL IMPRESSION: Successful percutaneous transluminal coronary angioplasty stent of the left circumflex, going from greater than 80% initial stenosis to 0% residual. PLAN: For PTCA stent of the LAD in the near future. TRANSINT:[id number] Voice Confirmation ID: [id number] DOCUMENT ID: [id number] OPERATIVE REPORT [id number] GROVES,NBACaro RUSSELL GRACE MD at 0803 CC: [id number] DICTATION DATE: 11/14/17 1554 LEGAL WRITING PROFESSOR: 11/14/17 1641 [place] [address]
--- NOTE | ~2017-11-13 | HEMODYNAMI ---
PATIENT:AVI GROVES MEDICAL RECORD: [id number] : 40 [id number] ADMISSION DATE: 11/13/17 Generatedon:11/14/201715:57 Patient name: AVI GROVES Patient #: [id number] SSN: [id number] B: 1940 Date of study: 11/14/2017 Page: Of Hemodynamic Procedure Report Patient Data Patient Demographics Procedure consent was obtained First Name: AVI Gender: Female Last Name: GERMAIN : 1940 Patient #: [id number] Age: 77 year(s) Race: Additional ID: [id number] Contact details [address]: [address] [place] [address] State: [place] City: [place] Zip code: [address] Past Medical History History of disease Date Diagnosis Comments CAD Allergies: No known allergies Admission Admission Data Admission Date: 11/13/2017 Admission Time: 14:09 Room #: D.2126 Lab Results Lab Result Date: 11/14/2017 Lab Result Time: 0:00 Biochemistry Name Units Result Min Max BUN mg/dl 24 --(----)-* 7 18 Creatinine mg/dl 1 --(--*-)-- 0.6 1.3 CBC Name Units Result Min Max Hemoglobin g/dl 12.9 -*(----)-- 13.5 17.5 Procedure Procedure Types Cath Procedure Diagnostic Procedure LHC [facility] w/Coronaries FFR/IVUS Intra-Coronary IVUS Initial IVUS Additional x2 Sedation Charges Moderate Sedation up to 15 minutes PCI Procedure Coronary Stent Coronary Stent Initial PTCA PTCA Additional Procedure Description Procedure Date Procedure Date: 11/14/2017 Procedure Start Time: 15:28 Procedure End Time: 15:57 Procedure Staff Name Function Juice Roy MD Performing Physician China Boogie RT Monitor Fidencio Mota RT Scrub Corazon Ball RN Nurse Ena Quigley RN Nurse Procedure Data Cath Procedure Fluoroscopy Diagnostic fluoroscopy Total fluoroscopy Time: 7.5 time: 7.5 min min Diagnostic fluoroscopy Total fluoroscopy dose: dose: 1352 mGy 1352 mGy Contrast Material Contrast Material Type Amount (ml) Isovue 300 155 Entry Location Entry Primary Successful Side Size Upsize Upsize Entry Closure Succes sful Closure Location (Fr) 1 (Fr) 2 (Fr) Remarks Device Remarks Femoral Right 5 Fr 6 Fr Exoseal artery Short Estimated blood loss: 10 ml Diagnostic catheters Device Type Used For End Catheter Placement MULTIPACK Pigtail 5 Fr Procedure catheter MULTIPACK JL 4.0 5Fr Procedure catheter MULTIPACK 3DRC 5Fr Procedure catheter Procedure Complications No complications Procedure Medications Medication Administration Route Dosage Plavix P.O. 75 mg Lidocaine 2% added to field 20 Heparin Flush Bag added to field 2 bags (1000units/500ml NS) 0.9% NaCl I.V. 100 ml/hr Oxygen etCO2 Nasal cannula 2 l/min Versed I.V. 1 mg Fentanyl I.V. 50 mcg Versed I.V. 1 mg Fentanyl I.V. 50 mcg Versed I.V. 1 mg Heparin Bolus I.V. 4000 units Versed I.V. 1 mg Fentanyl I.V. 50 mcg Fentanyl I.V. 50 mcg Hemodynamics Rest HGB: 12.9 (g/dl) Heart Rate: 67 (bpm) Snapshots Pre Cath Intra NCS Post Cath Vital Signs Time Heart Resp SPO2 etCO2 NIBP (mmHg) Rhythm Pain Sedation Rate (ipm) (%) (mmHg) Status Level (bpm) 15:13:02 68 12 98 40.9 161/62(115) NSR 0 (11) 10(A) , No pain 15:22:52 67 12 99 43.9 148/67(114) NSR 0 (11) 10(A) , No pain 15:27:49 66 14 95 35.7 138/65(111) NSR 0 (11) 10(A) , No pain 15:32:52 68 15 98 33.5 135/60(99) NSR 0 (11) 9(A) , No pain 15:37:49 68 12 98 37.9 130/72(102) NSR 0 (11) 9(A) , No pain 15:42:44 70 15 97 38.7 139/66(107) NSR 0 (11) 9(A) , No pain 15:47:43 71 12 96 43.1 Measuring NSR 0 (11) 10(A) , No pain 15:52:42 73 8 94 49 127/63(118) NSR 0 (11) 10(A) , No pain Medications Time Medication Route Dose Verified Delivered Reason Notes Effectiveness by by 15:10:13 Plavix P.O. 75 mg Juice Buffie for Kirill Ball RN antiplatelet therapy 15:10:21 Lidocaine 2% added 20ml Juice Juice for local to vial Kirill Roy MD anesthetic field 15:10:28 Heparin Flush added 2 Juice Juice used for Bag to bags Kirill Roy MD procedure (1000units/500ml field NS) 15:10:38 0.9% NaCl I.V. 100 Juice Buffie Per physician ml/hr Kirill Ball RN 15:11:13 Oxygen etCO2 2 Juice Buffie used for Nasal l/min Kirill Ball RN procedure cannula 15:23:12 Versed I.V. 1 mg Juice Buffie for sedation Kirill Ball RN 15:23:18 Fentanyl I.V. 50 Juice Buffie for sedation mcg Kirill Ball RN 15:28:02 Versed I.V. 1 mg Juice Buffie for sedation Kirill Ball RN 15:28:05 Fentanyl I.V. 50 Juice Buffie for sedation mcg Kirill Ball RN 15:30:59 Versed I.V. 1 mg Juice Buffie for sedation Kirill Ball RN 15:35:25 Heparin Bolus I.V. 4000 Juice Ena for verif ied units Kirill Quigley anticoagulation with dr XENA roy 15:40:26 Versed I.V. 1 mg Juice Ena for sedation Kirill Quigley RN 15:40:29 Fentanyl I.V. 50 Juice Ena for sedation mcg Kirill Quigley RN 15:43:27 Fentanyl I.V. 50 Juice Nea for sedation mcg Kirill Quigley RN Procedure Log Time Note 14:52:42 Signed procedure consent form obtained from patient. 14:52:44 Time tracking: Regular hours (M-F 7:00 - 5:00) 14:52:48 Plan of Care:Hemodynamics will remain stable., Cardiac rhythm will remain stable., Comfort level will be maintained., Respiratory function will remain adequate., Patient/ family verbilizes understanding of procedure., Procedure tolerated without complication., Recovers from procedure without complications.. 14:52:50 Diagnostic Cath status Elective 14:52:53 Fidencio Mota RT(R) sent for patient. Start room use. 14:53:42 Patient allergic to No known allergies 14:54:11 Lab Result : BUN 24 mg/dl 14:54:11 Lab Result : Creatinine 1 mg/dl 14:54:11 Lab Result : Hemoglobin 12.9 g/dl 15:05:07 Patient received from Med II to CCL 1 Alert and oriented. Tansferred to table in Supine position. 15:05:14 Warm blankets applied, and saul hugger turned on for patient comfort. 15:05:15 Correct patient and procedure confirmed by team. 15:05:15 ECG and BP/O2 sat monitors applied to patient. 15:10:13 Plavix 75 mg P.O. was administered by Corazon Ball RN; for antiplatelet therapy; 15:10:21 Lidocaine 2% 20ml vial added to field was administered by Juice Roy MD; for local anesthetic; 15:10:28 Heparin Flush Bag (1000units/500ml NS) 2 bags added to field was administered by Juice Roy MD; used for procedure; 15:10:38 0.9% NaCl 100 ml/hr I.V. was administered by Corazon Ball RN; Per physician; 15:10:50 Vital chart was started 15:11:13 Oxygen 2 l/min etCO2 Nasal cannula was administered by Corazon Ball RN; used for procedure; 15:14:09 Baseline sample Acquired. 15:14:27 Rhythm: sinus rhythm 15:14:28 Full Disclosure recording started 15:14:35 Pre-procedure instructions explained to patient. 15:14:35 Pre-op teaching completed and patient verbalized understanding. 15:14:36 Family in patients room. 15:14:38 Patient NPO since Midnight. 15:14:41 Is the patient allergic to Iodine/contrast media? No. 15:14:41 Is patient on blood thinner?Yes 15:14:44 ACC The patient was administered the following blood thiners within the last 24 hours: ACCPlavix 15:14:45 Patient diabetic? Yes. 15:14:47 If diabetic: On Metformin? No 15:14:51 Patient not . Patient is over age 55. 15:14:53 Previous problem with sedation/anesthesia? No ? 15:14:54 Snore? Yes 15:14:55 Sleep apnea? Yes 15:14:56 Deviated septum? No 15:14:57 Opens mouth fully? Yes 15:14:59 Sticks out tongue? Yes 15:15:01 Airway obstruction? No ? 15:15:03 Dentures? No ? 15:15:06 Pre procedure: right dorsailis pedis pulse 2+ Normal; easily identifiable; not easily obliterated 15:15:09 Patient pain scale 0/10 ?. 15:15:27 IV patent on arrival in left forearm with 0.9% NaCl at [facility]. 15:15:29 Lab results completed and on chart. 15:15:32 Right groin area was prepped with chlora-prep and draped in sterile fashion 15:15:35 Alarms reviewed by R. N. 15:15:35 Sharps counted by scrub and verified by R.N. 15:22:45 --------ALL STOP TIME OUT------ 15:22:46 Final Timeout: patient, procedure, and site verified with staff and physician. All members of the team are in agreement. 15:22:47 Right groin site verified by team. 15:22:52 Sedation plan: IV Moderate Sedation Medication:Versed, Fentanyl 15:23:03 IV to lt hand infiltrated. IV d/c'd. IV restarted 22g to rt ac x 1 attempt. 15:23:12 Versed 1 mg I.V. was administered by Corazon Ball RN; for sedation; 15:23:18 Fentanyl 50 mcg I.V. was administered by Corazon Ball RN; for sedation; 15:27:37 Procedure started. 15:27:41 Zero performed for pressure channel P1 15:28:02 Versed 1 mg I.V. was administered by Corazon Ball RN; for sedation; 15:28:05 Fentanyl 50 mcg I.V. was administered by Corazon Ball RN; for sedation; 15:28:09 Local anesthetic to right femoral artery with Lidocaine 2% by Juice Roy MD.INITIAL ACCESS ONLY 15:28:31 Use device set Femoral Dx 15:28:36 ACIST Syringe (13305) opened to sterile field. 15:28:37 Bag Decanter (2001S) opened to sterile field. 15:28:38 ACIST Hand Control (97029) opened to sterile field. 15:28:38 ACIST Manifold (92372) opened to sterile field. 15:28:41 Tegaderm 4 x 4 (1626W) opened to sterile field. 15:28:42 Medline Cath Pack ([id number]) opened to sterile field. 15:28:43 DIAGNOSTIC WIRE .035 260cm J wire (469282) opened to sterile field. 15:28:43 DIAGNOSTIC Multipack 5Fr catheter set (TC5422) opened to sterile field. 15:28:44 SHEATH Prelude 5Fr 0.035 (MHR-1D-66-035) opened to sterile field. 15:28:54 A 5 Fr sheath was inserted into the Right Femoral artery 15:29:43 A MULTIPACK Pigtail 5 Fr catheter was advanced over the wire and used for Procedure. 15:29:46 LV gram done using JUDD 15:29:48 Injector settings: Ml/sec: 10, Volume: 20, 15:30:17 EF : 50 % 15:30:29 A MULTIPACK JL 4.0 5Fr catheter was advanced over the wire and used for Procedure. 15:30:37 Catheter removed. 15:30:59 Versed 1 mg I.V. was administered by Corazon Ball RN; for sedation; 15:31:21 LCA angiography performed. 15:31:54 Catheter removed. 15:31:58 A MULTIPACK 3DRC 5Fr catheter was advanced over the wire and used for Procedure. 15:33:19 RCA angiography performed. 15:33:48 Catheter removed. 15:34:25 SHEATH 6FR [place] (NOE752) opened to sterile field. 15:34:26 INFLATOR Merit BasixCompak (UP6023) opened to sterile field. 15:34:26 CHOICE PT Extra Support 182cm wire ([id number]) opened to sterile field. 15:34:31 [place] IVUS Catheter (14817L) opened to sterile field. 15:34:37 GUIDE 6FR XBLAD 3.5 SH catheter ([id number]) opened to sterile field. 15:34:45 Sheath upsized to a 6 Fr Short. 15:35:25 Heparin Bolus 4000 units I.V. was administered by Ena Quigley RN; for anticoagulation; verified with dr roy 15:35:30 6 Fr XBLAD 3.5 SH guide catheter was inserted over the wire 15:36:15 CHOICE ES 182 wire advanced. 15:36:17 Wire advanced across lesion. 15:38:18 IVUS catheter advanced over wire. 15:38:19 IVUS pass to LAD lesion performed. 15:38:19 IVUS pass to LMCA lesion performed. 15:38:20 IVUS catheter removed over wire. 15:38:27 Wire redirected to CX. 15:38:55 IVUS catheter advanced over wire. 15:38:58 IVUS pass to Circ lesion performed. 15:38:59 IVUS catheter removed over wire. 15:40:26 Versed 1 mg I.V. was administered by Ena Quigley RN; for sedation; 15:40:29 Fentanyl 50 mcg I.V. was administered by Ena Quigley RN; for sedation; 15:41:04 Place stent Inflation Number: 1 A GARO RX 3.0 x 22 stent ([id number]) was prepped and advanced across the 1st Ob Kerry. The stent was deployed at 17 DELLA for 0:10 (min:sec). 15:42:14 Wire redirected to CX. 15:43:27 Fentanyl 50 mcg I.V. was administered by Ena Quigley RN; for sedation; 15:44:07 NEW WIRE NEEDED , WIRE REMOVED 15:44:18 CHOICE PT Extra Support 182cm wire ([id number]) opened to sterile field. 15:44:28 CHOICE ES 182 wire advanced. 15:47:26 Inflate balloon Inflation number: 1 A EUPHORA 2.5 x 12 Balloon ([id number]) was prepped and advanced across the Prox CX, then inflated to 14 DELLA for 0:10 (min:sec). 15:47:50 Inflation number: 2 The EUPHORA 2.5 x 12 Balloon ([id number]) was reinflated across the Prox CX, to 17 DELLA for 0:10 (min:sec). 15:48:20 Balloon removed over the wire. 15:48:24 Wire removed. 15:48:24 Guide catheter removed. 15:51:45 EXOSEAL 6Fr (EX600) opened to sterile field. 15:51:56 Sheath removed intact; hemostasis achieved with Exoseal to the Right Femoral artery. 15:51:58 Procedure ended.(Physican Out) 15:53:34 Fluoroscopy time 07.50 minutes. 15:53:39 Fluoroscopy dose: 1352 mGy 15:53:39 Flurop Dose total: 1352 15:53:59 Contrast amount:Isovue 300 155ml. 15:54:01 Sharps counted by scrub and verified by R.N. 15:54:04 Post-op/insertion site Right Femoral artery dressed using a 4 x 4 and Tegaderm. 15:54:10 Post right femoral artery:stable, soft, clean and dry 15:54:15 Post-procedure physical assessment completed. ASA score P 2 - A patient with mild systemic disease as per Juice Roy MD. 15:54:18 Post procedure rhythm: unchanged. 15:54:23 Estimated blood loss: 10 ml 15:54:24 Post procedure instruction explained to patient.Patient verbalizes understanding. 15:54:25 Patient needs reinforcement of post procedure teaching. 15:56:07 Procedure type changed to Cath procedure, Diagnostic procedure, LHC, LHC w/Coronaries, FFR/IVUS, Intra-Coronary IVUS Initial, IVUS Additional x2, Sedation Charges, Moderate Sedation up to 15 minutes, PCI procedure, Coronary Stent, Coronary Stent Initial, PTCA, PTCA Additional 15:57:01 Procedure and supply charges have been captured, reviewed, submitted and are correct. 15:57:03 Procedure Complication : No complications 15:57:05 Vital chart was stopped 15:57:05 See physician's report for complete and final results. 15:57:[address] [facility]. 15:57:[address] [facility] with Bed. 15:57:13 Procedure ended. 15:57:13 Full Disclosure recording stopped 15:57:16 End room use (Document Last) Intervention Summary Intervention Notes Time ActionType Lesion and Equipment Used Action# Pressure Duration Attributes 15:41:04 Place stent 1st Ob Kerry GARO RX 3.0 x 1 17 00:10 22 stent ([id number]) 15:47:26 Inflate Prox CX EUPHORA 2.5 x 1 14 00:10 balloon 12 Balloon ([id number]) 15:47:50 Reinflate Prox CX EUPHORA 2.5 x 2 17 00:10 balloon 12 Balloon ([id number]) Device Usage Item Name Manufacture Quantity Catalog Number Hospital Part Current Minimal Lot# / Charge Number Stock Stock Serial# Code ACIST Syringe Acist 1 98569 001197 960598 443055 20 (50058) Medical Systems Inc Bag Decanter Microtek 1 2001S 129200 16372 497474 5 (2001S) Medical Inc. ACIST Hand Acist 1 23931 863773 240635 869160 5 Control (95283) Medical Systems Inc ACIST Manifold Acist 1 03758 709744 128337 978961 5 (09851) Medical Systems Inc Tegaderm 4 x 4 3M 1 1626W 323493 114662 320764 5 (1626W) Medline Cath Cardinal 1 [id number] 193577 75477 618348 5 transOMIC ([id number]) DIAGNOSTIC WIRE St Eric 1 908417 914561 699238 127031 30 .035 260cm J wire (031667) DIAGNOSTIC Cardinal 1 DY8243 485300 01352 028418 30 Multipack 5Fr Health catheter set (MR2399) SHEATH Prelude Merit 1 ZAE-9F-87-035 142440 490915 943355 5 5Fr 0.035 Medical ([id number]-8D-96-035) MULTIPACK Cardinal 1 328493 5 Pigtail 5 Fr Health catheter MULTIPACK JL Cardinal 1 908227 5 4.0 5Fr Health catheter MULTIPACK 3DRC Cardinal 1 859919 5 5Fr catheter Health SHEATH 6FR Terumo 1 XIJ940 782296 534957 373674 40 [place] (AUY194) INFLATOR Merit Merit 1 JA4862 606478 803800 821573 15 [facility] (FN2098) CHOICE PT Extra [place] 2 [id number] 499200 170625 631727 5 Support 182cm Scientific wire ([id number]) [place] 1 58058V 968824 063413 214669 8 [place] IVUS Catheter (45535Y) GUIDE 6FR XBLAD Cardinal 1 [id number] 875467 900028 000037 3 3.5 [employer] ([id number]) GARO RX 3.0 x Medtronic 1 [id number] 250677 7744354 311447 5 [id number] 22 stent ([id number]) EUPHORA 2.5 x Medtronic 1 [id number] 133614 363880 239800 5 [id number] 12 Balloon ([id number]) EXOSEAL 6Fr Cardinal 1 EX600 495812 775200 690662 10 (EX600) Health Signature Audit [place] Stage Time Signature Unsigned Intra-Procedure 11/14/2017 [place] Boogie 3:57:35 PM RT(R) Signatures Monitor : [place] Boogie Signature : RT Date : Time : [address] [address]
[2017-11-13 12:03] LABS: ANION GAP 15.1 mmol/L (8-16); CALCIUM 8.6 mg/dL (8.5-10.1); CARBON DIOXIDE 28.4 mmol/L (21.0-32.0); CREATININE - SERUM 1.3 mg/dL (0.6-1.3); POTASSIUM - SERUM 3.5 mmol/L (3.5-5.1)
[2017-11-13] MEDS ORDERED: TOPROL XL25 MG PO (15:19)
[2017-11-13 15:55] VITALS: BP 193/85; Ht 165.1 cm; Wt 114.4 kg
[2017-11-13 16:52] LABS: BASOPHILS 0.7 % (0-2); EOSINOPHILS 3.2 % (0-7); HEMATOCRIT 32.7 % (36.0-48.0); HEMOGLOBIN 10.4 g/dL (12-16); IMMATURE GRANULOCYTES 0.5 % (0-5); LYMPHOCYTES 26.6 % (15-50); MCH 30.1 pg (26.0-34.0); MCHC 31.8 g/dL (31.0-37.0); MCV 94.5 fL (80.0-100.0); MEAN PLATELET VOLUME 11.5 fL (7.4-10.4); MONOCYTES 11.1 % (2-11); NEUTROPHILS 57.9 % (40-80); PLATELET COUNT 169 10x3/uL (130-400); RBC 3.46 10x6/uL (4.00-5.40); RDW 13.5 % (11.5-14.5); WBC 4.1 10x3/uL (4.8-10.8)
[2017-11-13 17:09] LABS: CALCIUM 8.9 mg/dL (8.5-10.1); CARBON DIOXIDE 29.5 mmol/L (21.0-32.0); CREATININE - SERUM 1.3 mg/dL (0.6-1.3); POTASSIUM - SERUM 3.5 mmol/L (3.5-5.1)
[2017-11-13 20:00] VITALS: BP 140/47
[2017-11-14] VITALS: BP 152/55
[2017-11-14 04:00] VITALS: BP 144/65
[2017-11-14 06:24] LABS: BASOPHILS 0.4 % (0-2); EOSINOPHILS 6.3 % (0-7); IMMATURE GRANULOCYTES 0.2 % (0-5); LYMPHOCYTES 42.9 % (15-50); MCH 29.1 pg (26.0-34.0); MCHC 32.4 g/dL (31.0-37.0); MEAN PLATELET VOLUME 10.3 fL (7.4-10.4); MONOCYTES 7.5 % (2-11); NEUTROPHILS 42.7 % (40-80); RDW 14.1 % (11.5-14.5)
[2017-11-14 06:29] LABS: HEMATOCRIT 39.8 % (36.0-48.0); HEMOGLOBIN 12.9 g/dL (12-16); MCV 89.6 fL (80.0-100.0); PLATELET COUNT 250 10x3/uL (130-400); RBC 4.44 10x6/uL (4.00-5.40)
[2017-11-14 06:31] LABS: ANION GAP 7.1 mmol/L (8-16); CALCIUM 8.4 mg/dL (8.5-10.1); CARBON DIOXIDE 32.6 mmol/L (21.0-32.0); POTASSIUM - SERUM 3.7 mmol/L (3.5-5.1)
[2017-11-14 08:00] VITALS: BP 107/55
[2017-11-14 11:40] VITALS: BP 133/81
[2017-11-14 20:21] VITALS: BP 94/49
[2017-11-15] VITALS: BP 93/40
[2017-11-15 04:00] VITALS: BP 129/59
== END 2017-11-15 14:16 | disposition home or self-care (01) ==
LOC: OBSVTIME → D.RAD 11:03 → D.M2 14:09 → D.RAD 14:09 → D.M2 14:09 → OBSVTIME 14:19 → D.M2 11-15 14:16 → D.RAD 11-15 14:16 → D.M2 11-15 14:16
PROVIDERS: Internal Medicine Interventional Cardiology
DX: I25.110 Atherosclerotic heart disease of native coronary artery with unstable angina pectoris (principal); I10 Essential (primary) hypertension; E78.5 Hyperlipidemia, unspecified
CPT/HCPCS: 93458; 92978; 92979 ×2; C9600 ×2

== ENCOUNTER 2018-03-08 10:55 | Inpatient (IN) | payer MEDICARE ==
[~2018-03-08] VITALS: Ht 165.1 cm; Wt 115.7 kg
[~2018-03-08 10:55] MED LIST changes: +TOPROL XL25 MG PO
[2018-03-08] MEDS ORDERED: LIPITOR10 MG PO (11:12)
[2018-03-08] MEDS ORDERED: PROTONIX40 MG PO (11:13)
[2018-03-08 11:31] LABS: BASOPHILS 0.4 % (0-2); EOSINOPHILS 5.7 % (0-7); HEMATOCRIT 35.3 % (36.0-48.0); HEMOGLOBIN 11.6 g/dL (12-16); LYMPHOCYTES 33.6 % (15-50); MCH 29.8 pg (26.0-34.0); MCHC 32.9 g/dL (31.0-37.0); MCV 90.7 fL (80.0-100.0); MEAN PLATELET VOLUME 11.6 fL (7.4-10.4); MONOCYTES 14.8 % (2-11); NEUTROPHILS 45.5 % (40-80); RBC 3.89 10x6/uL (4.00-5.40); RDW 15.5 % (11.5-14.5); WBC 4.9 10x3/uL (4.8-10.8)
[2018-03-08 11:33] LABS: PLATELET COUNT 185 10x3/uL (130-400)
--- NOTE | 2018-03-08 11:36 | NUR ---
TRAUMA BAND NUMBER [id number]
[2018-03-08 11:47] LABS: ALBUMIN 3.6 g/dL (3.4-5.0); ALKALINE PHOSPHATASE 65 U/L (46-116); ALT (SGPT) 17 U/L (10-68); BILIRUBIN - TOTAL 0.24 mg/dL (0.2-1.3); CALC OSMOLALITY 295 mosm/kg (275-300); CALCIUM 8.5 mg/dL (8.5-10.1); CARBON DIOXIDE 16.2 mmol/L (21.0-32.0); CHLORIDE - SERUM 106 mmol/L (98-107); CREATININE - SERUM 5.2 mg/dL (0.6-1.3); POTASSIUM - SERUM 4.2 mmol/L (3.5-5.1); PROTEIN - SERUM 7.6 g/dL (6.4-8.2); SODIUM 136 mmol/L (136-145); UREA NITROGEN 83 mg/dL (7-18); eGFR NON AFRICAN AMERICAN 8 mL/min (90-120)
[2018-03-08 11:50] LABS: APPEARANCE CLOUDY (CLEAR); COLOR YELLOW (YELLOW); SPECIFIC GRAVITY 1.015 (1.005-1.020)
[2018-03-08 11:51] LABS: BILIRUBIN NEGATIVE (NEGATIVE); GLUCOSE 82 mg/dL (74-106); GLUCOSE NEGATIVE (NEGATIVE); KETONE NEGATIVE (NEGATIVE); NITRITE NEGATIVE (NEGATIVE); PROTEIN NEGATIVE (NEGATIVE); UROBILINOGEN NORMAL (NORMAL)
[2018-03-08 11:52] LABS: TROPONIN-I < 0.017 ng/mL (0.000-0.060)
[2018-03-08 11:54] LABS: BACTERIA MANY /hpf (NONE SEEN); EPITHELIAL CELLS 0-5 /hpf (0-5); GRANULAR CAST OCC /lpf (NONE SEEN); HYALINE CAST 0-5 /lpf (NONE SEEN); MUCUS <1+ /lpf (NONE SEEN); RED CELLS - URINE RARE /hpf (0-5)
[2018-03-08 12:48] VITALS: BP 144/54
[2018-03-08 14:05] VITALS: BP 136/54
--- NOTE | 2018-03-08 14:30 | NUR ---
ROOM 1209 ASSIGNED AT THIS TIME, ROOM MARKED DIRTY AND STAT CLEAN ORDERED. THIS NURSE ATTEMPTED TO CALL REPORT AT 1430, RECIEVING NURSE UNAVAILABLE. WILL ATTEMPT REPORT AGAIN SHORTLY.
--- NOTE | 2018-03-08 14:32 | NUR ---
ROCEPHIN STARTED AT 1405, COMPLETED AT 1435.
--- NOTE | 2018-03-08 15:00 | NUR ---
RECIEVED TO ROOM 1209 FROM ER VIA STRETCHER. SL TO R AC. LACING OPERATOR APPLIED. BRUSING NOTED TO LEFT EYE. PATIENT STATES SHE FELL AT HOME LAST WEEK. FAMILY AT BEDSIDE.
[2018-03-08 15:07] VITALS: BP 134/53; BMI 42.5
--- NOTE | 2018-03-08 18:30 | NUR ---
NO CHANGES NOTED AT THIS TIME.
--- NOTE | 2018-03-08 19:30 | NUR ---
PT RESTING IN BED. LEFT EYE HAS BRUISING. PT STATES SHE IS COLD. CHECKED HEATER. PT RESP EVEN AND UNLABORED. PT HAS NO S/S OF DISTRESS. DENIES ANY NEEDS. NAME AND DATE PLACED ON BOARD. SPOKE WITH PT REGARDING CALLING FOR ASSISTANCE BEFORE GETTING OUT OF BED. SAFETY WITH SLIP FREE SOCKS, PT VERBALIZED UNDERSTANDING. PT BEDLOW AND CALL LIGHT IN REACH. WILL CPOC
[2018-03-08 20:00] VITALS: BP 132/42
--- NOTE | 2018-03-08 22:54 | NUR ---
PT RESTING IN BED. ASKED TO USE RESTROOM. ASSISTED WITH STAND BYE ASSIST GAIT STEADY TO RESTROOM. URINE CLEAR YELLOW. PT BACK TO BED AND MEDS GIVEN. PT DENIES ANY NEEDS. NO S/S OF DISTRESS. BEDLOW AND CALL LIGHT IN REACH. WILL CPOC
--- NOTE | 2018-03-08 23:04 | NUR ---
FSBS IS 134, NO INSULIN NEEDED. PT NOT GIVEN METOPROLOL BECAUSE IT IS 24 HOUR. AND WILL BE GIVEN AT 0900, PT VERBALIZED AGREEMENT. PT WATCHING TV. WASHED PT FACE. EYES SLIGHTLY SWOLLEN FROM BRUISING ON FACE. PT DENIES ANY OTHER NEEDS. WILL CPCO
--- NOTE | 2018-03-08 23:24 | NUR ---
PT STATES ON 2L O2 QHS. PLACED 2L O2 FOR PT. PT VOIDED 200CC YELLOW URINE.. DOUCUMENTED IN OUTPUT. PT BED LOW AND CALL LIGHT IN REACH. PT AAO. WILL CALL FOR ASSIST WHEN NEEDED. ANTIBIOTIC INFUSING ORDERED TO RIGHT AC 20G. S1S2 RRR. LUNGS CLEAR. WILL CPOC
--- NOTE | 2018-03-09 00:02 | NUR ---
BLADDER SCANNED PT THERE IS [address] A MARX ORDERED. PT VERBALIZED UNDERSTANDING. WENT OVER MARX PLACEMENT AND EDUCATION WITH PT. PT VERBALIZED UNDERSTANDING. WILL CPOC
[2018-03-09 00:30] VITALS: BP 113/47
--- NOTE | 2018-03-09 01:05 | NUR ---
MARX CATH, 16 FR INSERTED USING SHELLFISH HARVESTER, PROPER GUIDELINES. OUT PUT OF 400 INSTANT, YELLOW CLEAR. PT BLADDER DISTENTION GONE, PT DENIES ANY NEEDS. NO S/S OF DISTRESS. BEDLOW AND CALL LIGHT IN REACH. PT VERBLAIZED UNDERSTANDING OF PROPER CARE FOR MARX CATH. WILL CALL FOR ASSIST WHEN NEEDED. WILL CPOC
--- NOTE | 2018-03-09 04:23 | NUR ---
PT ASLEEP, RESP EVEN AND UNLABORED. PT HAS NO S/S OF DISTRESS. 2L O2 NC. PT HAS CALL LIGHT IN REACH. WILL CPOC
--- NOTE | 2018-03-09 06:24 | NUR ---
MORNING MEDS GIVEN. FSBS IS 106, NO INSULIN NEEDED. PT DENIES ANY NEEDS. NO S/S OF DISTRESS. BEDLOW AND CALL LIGHT IN REACH. PT WILL CALL FOR ASSIST WHEN NEEDED. WILL CPOC
[2018-03-09 08:03] VITALS: BP 128/56
--- NOTE | 2018-03-09 08:15 | NUR ---
PT SITTING UP IN BED THIS AM EATING BREAKFAST. BRUISING NOTED TO LEFT EYE AND LEFT SIDE OF FACE. ABRASION NOTED TO RIGHT KNEE. MARX CATHETER NOTED, GOOD OUTPUT. RESPIRATIONS EVEN AND UNLABORED, NO S/S OF DISTRESS NOTED. DENIES NEEDS AT THIS TIME. BED LOW AND LOCKED, SR UP X2, CL IN EASY REACH. WILL CONTINUE TO MONITOR.
[2018-03-09 08:32] LABS: HEMATOCRIT 32.4 % (36.0-48.0); HEMOGLOBIN 10.7 g/dL (12-16); MCH 29.5 pg (26.0-34.0); MCV 89.3 fL (80.0-100.0); MEAN PLATELET VOLUME 11.6 fL (7.4-10.4); PLATELET COUNT 156 10x3/uL (130-400); RBC 3.63 10x6/uL (4.00-5.40); RDW 15.4 % (11.5-14.5)
[2018-03-09 08:53] LABS: ANION GAP 16.5 mmol/L (8-16); BILIRUBIN - TOTAL 0.23 mg/dL (0.2-1.3); CALCIUM 8.1 mg/dL (8.5-10.1); CARBON DIOXIDE 18.8 mmol/L (21.0-32.0); POTASSIUM - SERUM 4.3 mmol/L (3.5-5.1); PROTEIN - SERUM 6.8 g/dL (6.4-8.2)
[2018-03-09 08:55] LABS: WBC 3.3 10x3/uL (4.8-10.8)
[2018-03-09 08:56] LABS: BASOPHILS 0.6 % (0-2); CREATININE - SERUM 3.1 mg/dL (0.6-1.3); EOSINOPHILS 7.4 % (0-7); LYMPHOCYTES 28.6 % (15-50); MONOCYTES 9.9 % (2-11); NEUTROPHILS 53.5 % (40-80)
[2018-03-09 09:30] LABS: % SATURATION 28 % (15-55); IRON 105 ug/dl (35-150); TOTAL IRON BIND CAPACITY 367 ug/dl (260-445); UNSAT IRON BIND CAPACITY 262 ug/dl (150-375)
--- NOTE | 2018-03-09 11:30 | NUR ---
AWAKE AND ALERT. OFF UNIT VIA BED FOR CT SCAN. CONTINUE PHOTOVOLTAIC FABRICATION TECHNICIAN PLAN OF CARE.
[2018-03-09 12:43] VITALS: BP 93/43
[2018-03-09 14:05] VITALS: Ht 165.1 cm; Wt 115.7 kg
--- NOTE | 2018-03-09 19:25 | NUR ---
PT RESTING IN BED. FAMILY IN ROOM, NAME AND DATE PLACED ON BOARD. PT IS AAO, ON ROOM AIR, RIGHT AC IV NS INFUSING KVO. S1S2 RRR, LUNGS CLEAR WITH RHONCI RLL. MARX HAS YELLOW CLEAR URINE. BRUISES NOTED ON FACE, RIGHT KNEE ABRASION, SCRATCHES ON BUTTOCK FROM PT ITCHING. PT HAS NO S/S OF DISTRESS. BEDLOW AND CALL LIGHT IN REACH. SCD'S ON BILATERAL LOWER EXTREM. WILL CPOC
[2018-03-09 20:00] VITALS: BP 106/45
--- NOTE | 2018-03-09 20:44 | NUR ---
PT UP TO RESTROOM AND TO WASH HANDS AND BRUSH TEETH. PT RECEIVED A PARTIAL BATH, NEW GOWN AND LINEN. MARX CARE COMPLETE. PT DENIES ANY OTHER NEEDS. AT THIS TIME. WANTS O2 2L FOR SLEEP., PT NOW IN BED WITH NO S/S OF DISTRESS. SCD'S ON BILATERAL LOWER EXTREM. CALL LIGHT IN REACH. ALARM ON AND ACTIVE. PT IS AAO AND CALLS FOR ASSIST. WILL CPOC
--- NOTE | 2018-03-09 20:55 | NUR ---
PT FSBS IS 118, NO INSULIN NEEDED PER S/S. PT RESTING IN BED. DENIES ANY NEEDS,. NIGHT MEDS GIVEN. PT WILL CALL FOR ASSIST WHEN NEEDED. WILL CPOC
[2018-03-10] VITALS: BP 124/50
[2018-03-10 04:00] VITALS: BP 114/55
[2018-03-10 06:34] LABS: BASOPHILS 0.3 % (0-2); EOSINOPHILS 6.9 % (0-7); HEMATOCRIT 30.1 % (36.0-48.0); HEMOGLOBIN 9.7 g/dL (12-16); IMMATURE GRANULOCYTES 0.3 % (0-5); LYMPHOCYTES 31.3 % (15-50); MCHC 32.2 g/dL (31.0-37.0); MCV 90.1 fL (80.0-100.0); MEAN PLATELET VOLUME 11.8 fL (7.4-10.4); NEUTROPHILS 50.2 % (40-80); PLATELET COUNT 150 10x3/uL (130-400); RBC 3.34 10x6/uL (4.00-5.40); RDW 15.6 % (11.5-14.5); WBC 2.9 10x3/uL (4.8-10.8)
[2018-03-10 06:43] LABS: ANION GAP 18.1 mmol/L (8-16); CALCIUM 7.8 mg/dL (8.5-10.1); POTASSIUM - SERUM 4.1 mmol/L (3.5-5.1)
[2018-03-10 06:46] LABS: CREATININE - SERUM 1.9 mg/dL (0.6-1.3)
--- NOTE | 2018-03-10 08:05 | NUR ---
FSBS IS 145, NO INSULIN NEEDED.
[2018-03-10 08:16] LABS: FOLATE (FOLIC ACID) - SERUM 5.4 ng/mL (>3.0)
--- NOTE | 2018-03-10 08:17 | NUR ---
PT AAOX4 RESP EVEN AND NONLABORED, NO SIGNS OF DISTRESS NOTED, EATING BREAKFAST AT THIS TIME, NO QUESTIONS/CONCERNS EXPRESSED, CL IN REACH
[2018-03-10 08:38] VITALS: BP 123/54
--- NOTE | 2018-03-10 10:47 | NUR ---
REHAB PRESCREENING Rehab referral received and chart reveiwed. PT evaluation is pending. Rehab will continue to follow for evaluation in ordert to assess admission criteria. Thank you for this referral! Ro Russell, PUTTY PATCHER Rehab Copy Clerk
--- NOTE | 2018-03-10 11:00 | NUR ---
RESTING QUIETLY IN BED. BRUISING NOTED TO LEFT EYE.
[2018-03-10 12:37] VITALS: BP 105/49
--- NOTE | 2018-03-10 14:46 | NUR ---
REHAB PRESCREENING Rehab reviewed PT Evaluation. PT has signed off on patient and recommends discharge to home vs rehab. Patient does not meet admission criteria for ARU. Thank you for this referral! Ro Russell, RELAY SHOP TESTER Rehab PD
[2018-03-10 17:29] VITALS: BP 117/50
[2018-03-10 20:00] VITALS: BP 119/47
--- NOTE | 2018-03-10 22:38 | NUR ---
PT SITTING UP IN BED. A/O X 4. UP WITH ASSISTANCE X 1. BRUISES NOTED TO ZEESHAN EYES FROM PREVIOUS FALL AT HOME. MARX IN PLACE, CLEAR YELLOW URINE NOTED. NORMAL SINUS ON TELE. R AC IV NS @ 75 CC/HR. 2L O2 VIA NC. BS 144, NO TREATMENT. SCDS ON AND RUNNING PROPERLY. VITALS STABLE. TOOK MEDS WITHOUT DIFFICULTY. NO FURTHER CONCERNS AT THIS TIME. BED LOWERED AND LOCKED. CL IN REACH. WILL CPOC
[2018-03-11] VITALS: BP 115/47
--- NOTE | 2018-03-11 03:29 | NUR ---
PATIENT RESTING IN BED WITH EYES CLOSED AND NO S/S OF DISTRESS. BED IN LOWEST POSITION AND CALL LIGHT WITHIN REACH. WILL CONTINUE TO MONITOR.
[2018-03-11 04:00] VITALS: BP 140/57
--- NOTE | 2018-03-11 05:28 | NUR ---
PT LAYING IN BED RESTING. DENIES PAIN AT THIS TIME. VITALS STABLE. TOOK MORNING MEDS WITHOUT DIFFIUCLTY. MARX OUTPUT DURING SHIFT WAS 1200 OF GLORY COLORED URINE. PT DENIES FURTHER NEEDS AT THIS TIME. BED LOWERED AND LOCKED. CL IN REACH. WILL CPOC.
[2018-03-11 06:42] LABS: BASOPHILS 0.2 % (0-2); EOSINOPHILS 5.4 % (0-7); HEMATOCRIT 29.4 % (36.0-48.0); HEMOGLOBIN 9.6 g/dL (12-16); IMMATURE GRANULOCYTES 0.2 % (0-5); LYMPHOCYTES 24.3 % (15-50); MCH 29.3 pg (26.0-34.0); MCHC 32.7 g/dL (31.0-37.0); MCV 89.6 fL (80.0-100.0); MEAN PLATELET VOLUME 11.3 fL (7.4-10.4); MONOCYTES 12.4 % (2-11); NEUTROPHILS 57.5 % (40-80); PLATELET COUNT 139 10x3/uL (130-400); RBC 3.28 10x6/uL (4.00-5.40); RDW 15.4 % (11.5-14.5)
[2018-03-11 06:54] LABS: ANION GAP 16.1 mmol/L (8-16); CALCIUM 7.8 mg/dL (8.5-10.1); CARBON DIOXIDE 19.6 mmol/L (21.0-32.0); POTASSIUM - SERUM 3.7 mmol/L (3.5-5.1)
[2018-03-11 06:55] LABS: CREATININE - SERUM 1.3 mg/dL (0.6-1.3)
[2018-03-11 07:02] LABS: WBC 4.3 10x3/uL (4.8-10.8)
[2018-03-11 07:46] LABS: APTT 28.6 SECONDS (22.8-39.4); INR 1.14 (0.85-1.17); PROTIME 14.1 SECONDS (11.6-15.0)
--- NOTE | 2018-03-11 07:56 | NUR ---
PT AAOX4 RESP EVEN AND NONLABORED, NO SIGNS OF DISTRESS NOTED, PT STATES "I THINK MY GOUT IS FLARING BACK UP" WILL CONTINUE TO MONITOR, NO OTHER QUESTIONS/CONERNS VOICED AT THIS TIME, CL IN REACH
[2018-03-11 08:05] VITALS: BP 164/72
--- NOTE | 2018-03-11 11:05 | NUR ---
PLACED AN ICE PACK ON PT LEFT FOOT AND ELEVATED WITH PILLOW, WILL CONTINUE TO MONITOR, CL IN REACH
[2018-03-11 12:00] VITALS: BP 148/62
--- NOTE | 2018-03-11 13:56 | NUR ---
WINE PASTEURIZER NOTES - CREATININE RETURNING TO BASELINE. GENERALIZED WEAKNESS. LOOKING INTO CPAP FOR SLEEP APNEA. BRUISE TO EYE FROM FALL AT HOME.
[2018-03-11 16:00] VITALS: BP 116/57
--- NOTE | 2018-03-11 18:32 | NUR ---
AAOX4 RESP EVEN AND NONLABORED, NO SIGNS OF DISTRESS NOTED, ON THE PHONE AT THIS TIME CL IN REACH
--- NOTE | 2018-03-11 19:56 | NUR ---
REST IN BED, CALL LIGHT IN REACH.
--- NOTE | 2018-03-11 23:57 | NUR ---
REST IN BED, RESP EVEN, NO DISTRESS, CALL LIGHT IN REACH.
--- NOTE | 2018-03-12 02:17 | NUR ---
PATIENT RESTING IN BED WITH EYES CLOSED AND NO S/S OF DISTRESS. BED IN LOWEST POSITION AND CALL LIGHT WITHIN REACH. WILL CONTINUE TO MONITOR.
[2018-03-12 06:13] LABS: BASOPHILS 0.2 % (0-2); EOSINOPHILS 3.8 % (0-7); HEMATOCRIT 27.8 % (36.0-48.0); HEMOGLOBIN 9.2 g/dL (12-16); IMMATURE GRANULOCYTES 0.2 % (0-5); LYMPHOCYTES 21.7 % (15-50); MCH 29.6 pg (26.0-34.0); MCHC 33.1 g/dL (31.0-37.0); MCV 89.4 fL (80.0-100.0); MEAN PLATELET VOLUME 11.5 fL (7.4-10.4); MONOCYTES 13.7 % (2-11); NEUTROPHILS 60.4 % (40-80); PLATELET COUNT 127 10x3/uL (130-400); RBC 3.11 10x6/uL (4.00-5.40); RDW 15.6 % (11.5-14.5); WBC 5.2 10x3/uL (4.8-10.8)
[2018-03-12 06:25] LABS: ANION GAP 15.4 mmol/L (8-16); CALCIUM 8.1 mg/dL (8.5-10.1); CARBON DIOXIDE 22.3 mmol/L (21.0-32.0); CREATININE - SERUM 1.1 mg/dL (0.6-1.3); POTASSIUM - SERUM 3.7 mmol/L (3.5-5.1)
--- NOTE | 2018-03-12 07:50 | NUR ---
NPO FOR EGD IN GI LAB. NO VOICED NEEDS AT THIS TIME.
[2018-03-12 08:38] VITALS: BP 153/71
--- NOTE | 2018-03-12 08:39 | NUR ---
PATIENT PREOP'D WITH PEPSID AND REGLAN. NS 1000ML BAG SENT WITH PATIENT. ARGENIS FROM GI TOOK PATIENT BY BED TO GI LAB FOR EGD. PATIENT HAVING NAUSEA AND DRY HEAVING BEFORE PREOP MEDS.
--- NOTE | 2018-03-12 09:07 | NUR ---
REPORT RECEIVED FROM YESSENIA IN GI. PATIENT HAD GASTRIC ULCER, NOT ACTIVELY BLEEDING. NO OTHER BIOPSIES TAKEN DUE TO BLOOD THINNERS. WAKING UP. WILL RETURN TO ROOM SHORTLY.
--- NOTE | 2018-03-12 10:53 | NUR ---
Renal diet ordered with estimated 65% average po intake based on available documentation. 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 Pt would benefit from a 2gm Na diet and stressed the importance of this at home as well. Offered Glucerna for trial RD following
[2018-03-12 12:30] VITALS: BP 126/54
--- NOTE | 2018-03-12 16:38 | MORECARE ---
CASE MANAGEMENT DISCHARGE SUMMARY PATIENT: AVI GROVES UNIT: [id number] ADM DATE: 03/09/18 AGE: 77 : 40 SEX: F ROOM/BED: D.1209 AUTHOR: JORDY CORRALES PHYSICIAN: REFERRING PHYSICIAN: CLYDE OWENS MD DATE OF SERVICE: 03/12/18 Discharge Plan Patient Name: AVI GROVES Facility: [facility]:[place] : 1940 Planned Disposition: Anticipated Discharge Date: Discharge Date: Expected LOS: Initial Reviewer: [id number] Initial Review Date: 03/12/2018 Generated: 03/12/18 5:38 pm Comments DCP- Discharge Planning Updated by [id number]: Nurys Campbell on 03/12/18 3:[address] Patient Name: AVI GROVES Admission Status: ER Accout number: [id number] Admission Date: 03-09-2018 : 1940 Admission Diagnosis: Attending: CLYDE OWENS Current LOS: 3 Anticipated DC Date: Planned Disposition: Primary Insurance: MEDICARE A & B Discharge Planning Comments: CM MET WITH PATIENT ABOUT DC PLANNING/NEEDS. PATIENT PLANS TO DC TO HOME WHEN BETTER. NO NEEDS IDENTIFIED AT THIS TIME. CM WILL FOLLOW AND ASSIST NEEDED WITH DC PLANNING/NEEDS. Practical Nurse: Nurys Campbell DCPIA - Discharge Planning Initial Assessment Updated by [id number]: Nurys Campbell on 03/12/18 4:34 pm * Is the patient Alert and Oriented? Yes * PCP KARLO * [facility] * Preadmission Environment Home Alone * ADLs Independent * Equipment Glucometer Oxygen Walker * List name and contact numbers for known caregivers / representatives who currently or will assist patient after discharge: MUKESH HERRON, * Community resources currently utilized None * Can the patient safely return to the preadmission environment? Yes * Has this patient been hospitalized within the prior 30 days at any hospital? No Patient Name: AVI GROVES Page [id number] at 1638 All edits/amendments must be made on the electronic document DICTATION DATE: 03/12/181637 ANAESTHETIC TECHNICIAN: DM 03/12/181637 RPT#: [id number] DC DATE: STATUS: ADM IN [facility] [address] [place] [address] END OF REPORT
--- NOTE | 2018-03-12 16:54 | NUR ---
PER DR. ALCAZAR WHEN DISCUSSING CPAP FOR PATIENT PREVIOUSLY ORDERED, PATIENT DENIES USING CPAP AT NIGHT AT HOME. PATIENT REFUSING CPAP.
[2018-03-12 17:03] VITALS: BP 120/51
--- NOTE | 2018-03-12 21:46 | NUR ---
PT FSBS 173, 2 UNITS HUMULIN REG GIVEN.
[2018-03-12 22:01] VITALS: BP 134/52
--- NOTE | 2018-03-12 22:53 | NUR ---
AWAKE AND ALERT. BRUISING NOTED TO EYE. STATES HER B/P DROPPED AND SHE FELL. IV INFUSING WITHOUT DIFF. RESP EVEN AND NONLABORED. NO DISTRESS. SR ELEVATED X2. CL IN REACH.
[2018-03-13] VITALS: BP 105/51
--- NOTE | 2018-03-13 02:07 | NUR ---
REST IN BED, RESP EVEN, NO DISTRESS NOTED, CALL LIGHT IN REACH.
--- NOTE | 2018-03-13 05:55 | NUR ---
FSBS 141.
[2018-03-13 05:59] VITALS: BP 133/52
[2018-03-13 07:05] LABS: BASOPHILS 0.3 % (0-2); HEMATOCRIT 29.2 % (36.0-48.0); HEMOGLOBIN 9.3 g/dL (12-16); IMMATURE GRANULOCYTES 0.3 % (0-5); LYMPHOCYTES 20.6 % (15-50); MCH 29.2 pg (26.0-34.0); MCHC 31.8 g/dL (31.0-37.0); MEAN PLATELET VOLUME 11.4 fL (7.4-10.4); MONOCYTES 12.9 % (2-11); NEUTROPHILS 58.9 % (40-80); PLATELET COUNT 125 10x3/uL (130-400); RBC 3.19 10x6/uL (4.00-5.40); RDW 15.9 % (11.5-14.5); WBC 3.9 10x3/uL (4.8-10.8)
[2018-03-13 07:23] LABS: MCV 91.5 fL (80.0-100.0)
[2018-03-13 07:31] LABS: ANION GAP 14.2 mmol/L (8-16); CALCIUM 7.8 mg/dL (8.5-10.1); CARBON DIOXIDE 21.7 mmol/L (21.0-32.0); CREATININE - SERUM 1.2 mg/dL (0.6-1.3); POTASSIUM - SERUM 3.9 mmol/L (3.5-5.1)
[2018-03-13 09:43] VITALS: BP 156/57
[2018-03-13 11:45] VITALS: BP 110/44
--- NOTE | 2018-03-13 19:45 | NUR ---
LYING IN BED. ALERT AND ORIETNED X4. BRUISE NOTED TO LT PERIORBITAL. DENIES PAIN. SCDS IN USE BILAT. RESP EVEN AND NONLABORED. BBS CTA. GEN EDEMA NOTED. TELEMETRY SHOWS SR WITH RATE OF 64. NS @ 75 ML/HR INFUSING IN RT AC WITHOUT DIFF. GEN WEAKNESS NOTED. AMB WITH ASSIST WITH WALKER. SR ELEVATED X2. CL IN REACH.
[2018-03-13 19:54] VITALS: BP 110/57
--- NOTE | 2018-03-14 01:49 | NUR ---
HAS BEEN RESTING WELL TONIGHT. NO DISTRESS. CL IN REACH.
[2018-03-14 05:12] VITALS: BP 132/53
[2018-03-14 06:56] LABS: BASOPHILS 0.6 % (0-2); EOSINOPHILS 9.3 % (0-7); HEMATOCRIT 28.7 % (36.0-48.0); HEMOGLOBIN 9.2 g/dL (12-16); IMMATURE GRANULOCYTES 0.6 % (0-5); LYMPHOCYTES 24.9 % (15-50); MCH 29.2 pg (26.0-34.0); MCHC 32.1 g/dL (31.0-37.0); MCV 91.1 fL (80.0-100.0); MEAN PLATELET VOLUME 11.5 fL (7.4-10.4); MONOCYTES 11.3 % (2-11); NEUTROPHILS 53.3 % (40-80); PLATELET COUNT 139 10x3/uL (130-400); RBC 3.15 10x6/uL (4.00-5.40); RDW 15.8 % (11.5-14.5); WBC 3.5 10x3/uL (4.8-10.8)
[2018-03-14 07:08] LABS: ANION GAP 14.9 mmol/L (8-16); CALCIUM 7.9 mg/dL (8.5-10.1); CREATININE - SERUM 1.1 mg/dL (0.6-1.3); POTASSIUM - SERUM 3.9 mmol/L (3.5-5.1)
[2018-03-14 08:27] VITALS: BP 142/50
[2018-03-14 11:16] VITALS: BP 160/66
[2018-03-14 15:14] VITALS: BP 130/58
--- NOTE | 2018-03-14 15:53 | MORECARE ---
CASE MANAGEMENT DISCHARGE SUMMARY PATIENT: AVI GROVES UNIT: [id number] ADM DATE: 03/09/18 AGE: 77 : 40 SEX: F ROOM/BED: D.1209 AUTHOR: SAVANNA,DOC PHYSICIAN: REFERRING PHYSICIAN: CLYDE OWENS MD DATE OF SERVICE: 03/14/18 Discharge Plan Patient Name: AVI GROVES Facility: [facility]:[place] : 1940 Planned Disposition: Anticipated Discharge Date: Discharge Date: Expected LOS: Initial Reviewer: [id number] Initial Review Date: 03/12/2018 Generated: 03/14/18 4:53 pm Comments DCP- Discharge Planning Updated by [id number]: Nurys Campbell on 03/14/18 2:[address] Patient Name: AVI GROVES Admission Status: ER Accout number: [id number] Admission Date: 03-09-2018 : 1940 Admission Diagnosis:WEAKNESS Attending: CLYDE OWENS Current LOS: 5 Anticipated DC Date: Planned Disposition: Primary Insurance: MEDICARE A & B Discharge Planning Comments: WAITING TO HEAR FROM IN REHAB IF SHE WILL BE ADMITTED TO THEM. River Rat: Nurys Campbell DCP- Discharge Planning Updated by [email or web address]: Nurys Campbell on 03/12/18 3:[address] Patient Name: AVI GROVES Admission Status: ER Accout number: [id number] Admission Date: 03-09-2018 : 1940 Admission Diagnosis: Attending: CLYDE OWENS Current LOS: 3 Anticipated DC Date: Planned Disposition: Primary Insurance: MEDICARE A & B Discharge Planning Comments: CM MET WITH PATIENT ABOUT DC PLANNING/NEEDS. PATIENT PLANS TO DC TO HOME WHEN BETTER. NO NEEDS IDENTIFIED AT THIS TIME. CM WILL FOLLOW AND ASSIST NEEDED WITH DC PLANNING/NEEDS. River Rat: Nurys Campbell DCPIA - Discharge Planning Initial Assessment Updated by [id number]: Nurys Campbell on 03/12/18 4:34 pm * Is the patient Alert and Oriented? Yes * PCP KARLO * [facility] * Preadmission Environment Home Alone * ADLs Independent * Equipment Glucometer Oxygen Walker * List name and contact numbers for known caregivers / representatives who currently or will assist patient after discharge: MUKESH HRERON, * Community resources currently utilized None * Can the patient safely return to the preadmission environment? Yes * Has this patient been hospitalized within the prior 30 days at any hospital? No Coverage Notice Reviewer: [id number] Ines Campbell Notice Issued Date-Time: 03/14/2018 9:56 Notice Type: IM Discharge Notice Notice Delivered To: Patient Relationship to Patient: Self Director Of Procurement Name: Delivery Method: HAND - Hand Delivered Sharlene Days: Prior Verbal Notification: Recipient Understood Notice: Yes Recipient Signature: Yes Med Rec Note Co-signed by Attending: Coverage Notice Comment: Last DP export: 03/12/18 3:38 pm Patient Name: AVI GROVES Page [phone] at 1553 All edits/amendments must be made on the electronic document DICTATION DATE: 03/14/181552 ARMOURED CAR ESCORT: TRUDY 03/14/18 155 RPT#: [id number] DC DATE: STATUS: ADM IN [facility] [address] [place] [address] END OF REPORT
--- NOTE | 2018-03-14 19:00 | NUR ---
DR ALCAZAR STATED TO S/L PT AT THIS TIME, PREPARE FOR POSSIBLE D/C TOMORROW.
--- NOTE | 2018-03-14 19:24 | NUR ---
PT 20G RIGHT AC IV WITH NS INFUSING AT 75 S/L, RIGHT ARM IS SWOLLEN, PT DENIES TENDERNESS STATES IT IS TIGHT. PT IS AAO, UP WITH MINIMAL ASSIST, SCD'S ON BILATERAL LOWER EXTREM. PT STATES HAD 3 BOWEL MOVEMENTS TODAY. LEFT EYE BRUISE NOTED, ALSO BRUISING ON CHEECK. LEFT EYE BROW HAS A SWOLLEN AREA THAT IS HARD TO TOUCH THAT IS FROM FALL. PT WEARS O2 AT NIGHT AND STATED HER NARE IS DRY AND TENDER. HUMIDITY OFFERED. PT STATES THAT IS WHAT HELPS AT HOME. PLACED NAME AND DATE ON BOARD. BEDLOW AND CALL LIGHT IN REACH. WILL CPOC
[2018-03-14 20:23] VITALS: BP 139/48
[2018-03-15 00:25] VITALS: BP 136/57
--- NOTE | 2018-03-15 03:29 | NUR ---
PT ASLEEP. RESP EVEN AND UNLABORED. 2L O2 NC. PT HAS NO S/S OF DISTESS. BEDLOW AND CALL LIGHT IN REACH. WILL CPOC
[2018-03-15 04:00] VITALS: BP 145/65
--- NOTE | 2018-03-15 06:42 | NUR ---
FSBS IS 156 2 UNITS GIVEN ORDERED. PT DENIES ANY NEEDS. NO S/S OF DISTRESS. WILL CALL FOR ASSIST WHEN NEEDED.
[2018-03-15 08:14] VITALS: BP 151/66
[2018-03-15 11:56] VITALS: BP 146/59
--- NOTE | 2018-03-15 15:40 | MORECARE ---
CASE MANAGEMENT DISCHARGE SUMMARY PATIENT: AVI GROVES UNIT: [id number] ADM DATE: 03/09/18 AGE: 77 : 40 SEX: F ROOM/BED: D.1209 AUTHOR: SAVANNA,DOC PHYSICIAN: REFERRING PHYSICIAN: CLYDE OWENS MD DATE OF SERVICE: 03/15/18 Discharge Plan Patient Name: AVI GROVES Facility: [facility]:[place] : 1940 Planned Disposition: Anticipated Discharge Date: Discharge Date: Expected LOS: Initial Reviewer: [id number] Initial Review Date: 03/12/2018 Generated: 03/15/18 4:39 pm Comments DCP- Discharge Planning Updated by [id number]: Malou Giordano on 03/15/18 2:[address] CM met with patient to confirm that she wants to discharge to [facility] Inpatient Rehab. Patient states yes, she does want to go to rehab. States she thinks that would be best before she goes home. CM obtained and entered order for Rehab Screening. CM called and informed Anna Marie with [facility] IR[facility] with referral. Anna Marie verbalized understanding. CM will continue to follow and assist as needed with discharge planning / needs. DCP- Discharge Planning Updated by [id number]: Nurys Campbell on 03/14/18 2:[address] Patient Name: AVI GROVES Admission Status: ER Accout number: [id number] Admission Date: 03-09-2018 : 1940 Admission Diagnosis:WEAKNESS Attending: CLYDE OWENS Current LOS: 5 Anticipated DC Date: Planned Disposition: Primary Insurance: MEDICARE A & B Discharge Planning Comments: WAITING TO HEAR FROM IN REHAB IF SHE WILL BE ADMITTED TO THEM. Perl Programmer: Nurys Campbell DCP- Discharge Planning Updated by [id number]: Nurys Campbell on 03/12/18 3:[address] Patient Name: AVI GROVES Admission Status: ER Accout number: [id number] Admission Date: 03-09-2018 : 1940 Admission Diagnosis: Attending: CLYDE OWENS Current LOS: 3 Anticipated DC Date: Planned Disposition: Primary Insurance: MEDICARE A & B Discharge Planning Comments: CM MET WITH PATIENT ABOUT DC PLANNING/NEEDS. PATIENT PLANS TO DC TO HOME WHEN BETTER. NO NEEDS IDENTIFIED AT THIS TIME. CM WILL FOLLOW AND ASSIST NEEDED WITH DC PLANNING/NEEDS. Perl Programmer: Nurys Campbell DCPIA - Discharge Planning Initial Assessment Updated by [email or web address]: Nurys Campbell on 03/12/18 4:34 pm * Is the patient Alert and Oriented? Yes * PCP KARLO * [facility] * Preadmission Environment Home Alone * ADLs Independent * Equipment Glucometer Oxygen Walker * List name and contact numbers for known caregivers / representatives who currently or will assist patient after discharge: MUKESH HERRON, * Community resources currently utilized None * Can the patient safely return to the preadmission environment? Yes * Has this patient been hospitalized within the prior 30 days at any hospital? No Coverage Notice Reviewer: [id number] - Nurys Campbell Notice Issued Date-Time: 03/14/2018 9:56 Notice Type: IM Discharge Notice Notice Delivered To: Patient Relationship to Patient: Self Latin Teacher Name: Delivery Method: HAND - Hand Delivered Sharlene Days: Prior Verbal Notification: Recipient Understood Notice: Yes Recipient Signature: Yes Med Rec Note Co-signed by Attending: Coverage Notice Comment: Last DP export: 03/14/18 2:53 pm Patient Name: AVI GROVES Page [phone] at 1540 All edits/amendments must be made on the electronic document DICTATION DATE: 03/15/189 CORNETIST: TRUDY 03/15/18 153 RPT#: [id number] DC DATE: STATUS: ADM IN [facility] [address] [place] [address] END OF REPORT
[2018-03-15 16:07] VITALS: BP 132/68
--- NOTE | 2018-03-15 17:00 | NUR ---
Rehab Note- Acute Inpatient Rehab prescreen order received. The patient has a new PT Eval. Will visit with the patient. Will follow at this time. Thank you for this referral! Anna Marie Frankel RN CLinical Liaison, [facility] Re[facility]
--- NOTE | 2018-03-15 17:25 | NUR ---
START BLADDER TRAINING AND REMOVE MARX PER ELIZABETH/DR BENÍTEZ. PATIENT POSSIBLE DC TO REHAB TOMORROW
--- NOTE | 2018-03-15 19:35 | NUR ---
PT SITTING UP IN CHAIR. STATES SHE HAS BEEN UP SINCE 1400, PT AAO. UP WITH MINIMAL ASSIST, PT WILL CALL FOR ASSIST WHEN NEEDED. EDEMA NOTED IN RIGHT ARM. LEFT LEG/FOOT. PT HAS NOURISHMENT IN REACH. CALL LIGHT IN REACH. PT WILL CALL FOR ASSIST WHEN NEEDED. NAME AND DATE PLACED ON BOARD. WILL CPOC
[2018-03-15 20:00] VITALS: BP 123/49
--- NOTE | 2018-03-15 22:36 | NUR ---
PT FSBS IS 141, NO INSULIN NEEDED PER SLIDING SCALE. MARX RELEASED AND RECLAMPED. PT WILL CALL FOR ASSIST WHEN NEEDED. PT RESTING IN BED. DENIES ANY OTHER NEEDS. WILL CPOC
--- NOTE | 2018-03-15 22:54 | NUR ---
OT NOTE: PT COMPLETED SUPINE TO SIT WITH MIN A. PT COMPLETED SIT TO STAND WITH CGA. PT COMPLETED STANDING BALANCE WITH CGA/MIN A. PT COMPLETED HYGIENE TASK WIT SET UP. THANK YOU, EUGENE JACOB
--- NOTE | 2018-03-15 23:25 | NUR ---
SPOKE TO ELIZABETH MORA REGARDING EDEMA AND CRACKLES HEARD IN LUNGS. ELIZABETH MORA STATED TO RESTART LASIX HOME DOSE, LASIX 40MG DAILY
[2018-03-16 00:10] VITALS: BP 126/63
--- NOTE | 2018-03-16 01:18 | NUR ---
UNCLAMPED MARX AND LET BLADDER DRAIN, PT STATES SHE STILL HAS THE URGE TO URINATE. PT DENIES ANY OTHER NEEDS. NO S/S OF DISTRESS. WILL CPOC
[2018-03-16 03:58] VITALS: BP 138/56
--- NOTE | 2018-03-16 05:30 | NUR ---
PT COMPLAINS OF HEADACHE BUT DENIES MEDICATION. COOL WASHCLOTH GIVEN. PT GIVEN MORNING CARAFATE. NURSE LET MARX DRAIN ONE LAST TIME AND REMOVED MARX,. PT VERBALIZED UNDERSTANDING TO CALL FOR ASSIST TO BATHROOM. PT WILL CALL WHEN NEEDED. WILL CPOC
--- NOTE | 2018-03-16 06:13 | NUR ---
FSBS IS 209, 4 UNITS GIVEN ORDERED, PT DENIES ANY NEEDS. MOIST, RED AREA BETWEEN THIGHS. SOME EXCORIATION NOTED. WILL REPORT TO NEXT NURSE. PT WILL CALL FOR ASSIST. WILL CPOC
--- NOTE | 2018-03-16 07:53 | NUR ---
ROUNDING DONE WITH PATIENT HAVING MARX CATH OUT LAST SHIFT. WILL TRY TO FIND A BSC FOR ISHMAELTENT. ON HEART MONITOR SHOWING SR, HR 65. ON ROOM AIR AT THIS TIME. CAN HAVE 2L PRN. RIGHT AC PIV SEEN WITH SALINE LOCK, RIGHT ARM IS SWOLLEN, PLACED UP ON PILLOW. OLD BRUSING SEEN TO LEFT ORBITAL AREA AND CHEECK FROM RECENT FALL. OBESE, HEASTY LOOKING AREA TO ABDOMINAL FOLD. BILATERAL SCD'S ARE IN USE.
[2018-03-16 08:23] VITALS: BP 145/66
--- NOTE | 2018-03-16 11:15 | NUR ---
NYSTATIN POWDER PLACED TO ABDOMINAL FOLD AND IN BILATERAL GROIN AREA THAT IS RED AND YEASTY LOOKING. WILL ASK PRIMARY DOCTOR FOR AN ORAL DIFLUCAN.
[2018-03-16] MEDS ORDERED: CARAFATE1 G PO (11:37)
[2018-03-16 13:17] VITALS: BP 136/70
--- NOTE | 2018-03-16 13:17 | NUR ---
ASSISTED TO BATHROOM TO VOID, INCONT. OF URINE TO SOAKED DEPENDS. ASSSITED BACK TO BED, RACHANA MAT ALARM IS TURNED ON.
--- NOTE | 2018-03-16 16:33 | NUR ---
I CALLED AND SPOKE TO XENA GONZALEZ IN REHAB TO CALL REPORT TO. I TOLD HER THAT I WOULD BRING HER BY BED AFTER SUPPER.
[2018-03-16 16:54] VITALS: BP 121/54
--- NOTE | 2018-03-16 17:34 | NUR ---
VERBAL AND WRITTEN DISCHARGE INSTRUCTIONS GIVEN TO PATIENT. HEART MONITOR TAKEN OFF. SALINE LOCK REMOVED WITH CATH TIP INTACT. PATIENT IS WET FROM INCONT. OF URINE IN DEPENDS ALONG WITH GOWN. CHANGED. DISCHARGED VIA WHEELCHAIR TO REHAB.
--- NOTE | 2018-03-19 08:20 | MORECARE ---
CASE MANAGEMENT DISCHARGE SUMMARY PATIENT: AVI GROVES UNIT: [id number] ADM DATE: 03/09/18 AGE: 77 : 40 SEX: F ROOM/BED: D.1209 AUTHOR: SAVANNA,DOC PHYSICIAN: REFERRING PHYSICIAN: CLYDE OWENS MD DATE OF SERVICE: 03/19/18 Discharge Plan Patient Name: AVI GROVES Facility: [facility]:[place] : 1940 Planned Disposition: Inpatient Rehab Anticipated Discharge Date: 03/16/18 Discharge Date: 03/16/2018 Expected LOS: 7 Initial Reviewer: [id number] Initial Review Date: 03/12/2018 Generated: 03/19/18 9:19 am Comments DCP- Discharge Planning Updated by [id number]: Malou Giordano on 03/15/18 2:[address] CM met with patient to confirm that she wants to discharge to [facility] Inpatient Rehab. Patient states yes, she does want to go to rehab. States she thinks that would be best before she goes home. CM obtained and entered order for Rehab Screening. CM called and informed Anna Marie with [facility] IRF with referral. Anna Marie verbalized understanding. CM will continue to follow and assist as needed with discharge planning / needs. DCP- Discharge Planning Updated by [id number]: Nurys Campbell on 03/14/18 2:[address] Patient Name: AVI GROVES Admission Status: ER Accout number: [id number] Admission Date: 03-09-2018 : 1940 Admission Diagnosis:WEAKNESS Attending: CLYDE OWENS Current LOS: 5 Anticipated DC Date: Planned Disposition: Primary Insurance: MEDICARE A & B Discharge Planning Comments: WAITING TO HEAR FROM IN REHAB IF SHE WILL BE ADMITTED TO THEM. Geopolitics Teacher: Nurys Campbell DCP- Discharge Planning Updated by [id number]: Nurys Campbell on 03/12/18 3:[address] Patient Name: AVI GROVES Admission Status: ER Accout number: [id number] Admission Date: 03-09-2018 : 1940 Admission Diagnosis: Attending: CLYDE OWENS Current LOS: 3 Anticipated DC Date: Planned Disposition: Primary Insurance: MEDICARE A & B Discharge Planning Comments: CM MET WITH PATIENT ABOUT DC PLANNING/NEEDS. PATIENT PLANS TO DC TO HOME WHEN BETTER. NO NEEDS IDENTIFIED AT THIS TIME. CM WILL FOLLOW AND ASSIST NEEDED WITH DC PLANNING/NEEDS. Geopolitics Teacher: Nuryszhanna Campbell DCPIA - Discharge Planning Initial Assessment Updated by [id number]: Nurys Campbell on 03/12/18 4:34 pm * Is the patient Alert and Oriented? Yes * PCP KARLO * Pharmacy [facility] * Preadmission Environment Home Alone * ADLs Independent * Equipment Glucometer Oxygen Walker * List name and contact numbers for known caregivers / representatives who currently or will assist patient after discharge: MUKESH HERRON, * Community resources currently utilized None * Can the patient safely return to the preadmission environment? Yes * Has this patient been hospitalized within the prior 30 days at any hospital? No Coverage Notice Reviewer: [id number] - Nurys Campbell Notice Issued Date-Time: 03/14/2018 9:56 Notice Type: IM Discharge Notice Notice Delivered To: Patient Relationship to Patient: Self Turret Lathe Machinist Name: Delivery Method: HAND - Hand Delivered Sharlene Days: Prior Verbal Notification: Recipient Understood Notice: Yes Recipient Signature: Yes Med Rec Note Co-signed by Attending: Coverage Notice Comment: Last DP export: 03/15/18 2:39 pm Patient Name: AVI GROVES Page [phone] at 0820 All edits/amendments must be made on the electronic document DICTATION DATE: 03/19/18818 COMBAT ENGINEER: TRUDY 03/19/18818 RPT#: [id number] DC DATE:03/16/18 STATUS: DIS IN [facility] [address] [place] [address] END OF REPORT
== END 2018-03-16 17:36 | DRG 683 ==
LOC: D.ER 10:55 → OBSVTIME 13:50 → D.EDHOLD 13:50 → D.M3 13:52
PROVIDERS: Emergency Medicine; Internal Medicine Gastroenterology; ADMIT Internal Medicine Nephrology
PROC: 0W3P8ZZ Control Bleeding in Gastrointestinal Tract, Via Natural or Artificial Opening Endoscopic (ICD-10-PCS; principal; 2018-03-12 08:21)
DX: N17.9 Acute kidney failure, unspecified (principal); I13.0 Hypertensive heart and chronic kidney disease with heart failure and stage 1 through stage 4 chronic kidney disease, or unspecified chronic kidney disease; I50.32 Chronic diastolic (congestive) heart failure; N39.0 Urinary tract infection, site not specified; R55 Syncope and collapse; E11.22 Type 2 diabetes mellitus with diabetic chronic kidney disease; N18.2 Chronic kidney disease, stage 2 (mild); D50.9 Iron deficiency anemia, unspecified; W01.0XXA Fall on same level from slipping, tripping and stumbling without subsequent striking against object, initial encounter; E11.40 Type 2 diabetes mellitus with diabetic neuropathy, unspecified; I27.20 Pulmonary hypertension, unspecified; I25.10 Atherosclerotic heart disease of native coronary artery without angina pectoris; E78.5 Hyperlipidemia, unspecified; B96.1 Klebsiella pneumoniae [K. pneumoniae] as the cause of diseases classified elsewhere; K25.9 Gastric ulcer, unspecified as acute or chronic, without hemorrhage or perforation; S00.12XA Contusion of left eyelid and periocular area, initial encounter; R19.5 Other fecal abnormalities

== ENCOUNTER 2018-03-16 15:36 | Inpatient (IN) | payer MEDICARE ==
[~2018-03-16] VITALS: Ht 165.1 cm; Wt 115.7 kg
[~2018-03-16 15:36] MED LIST changes: +CARAFATE1 G PO
[2018-03-16 17:56] VITALS: BP 147/67; BMI 42.5
[2018-03-16 19:00] VITALS: BP 177/55
--- NOTE | 2018-03-16 19:36 | NUR ---
GREETED PATIENT NAD INTRODUCED MYSELF HER NURSE FOR THE EVENING. HAD PATIENT SIGN ADMISSION PAPERWORK. PATIENT DENIES ANY FURTHER NEEDS AT THIS TIME. CALL LIGHT IN REACH
--- NOTE | 2018-03-16 23:55 | NUR ---
PATIENT CLEANED OF INCONTINENT URINE. COMPLETE BED CHANGED AND PATIENTS CLOTHING CHANGED. NYSTATIN APPLIED TO PERINEAL AREA AND UNDER ABDOMINAL FOLDS. WCTM. CALL LIGHT IN REACH.
--- NOTE | 2018-03-17 02:12 | NUR ---
PATIENT ASLEEP WITH EYES CLOSED LAYING ON RIGHT SIDE. HOB AT 30 DEGREES. RESPIRATIONS EVEN. NO SIGNS OF DISTRESS. CALL LIGHT IN REACH.
--- NOTE | 2018-03-17 04:49 | NUR ---
PATIENT AWAKE AND ASSISTED TO BATHROOM USING WALKER. PATIENT BACK TO BED AND REPOSITIONED FOR COMFORT. CALL LIGHT IN REACH.
[2018-03-17 06:03] LABS: BASOPHILS 0.2 % (0-2); HEMATOCRIT 26.8 % (36.0-48.0); HEMOGLOBIN 8.5 g/dL (12-16); IMMATURE GRANULOCYTES 0.4 % (0-5); LYMPHOCYTES 21.2 % (15-50); MCH 28.9 pg (26.0-34.0); MCHC 31.7 g/dL (31.0-37.0); MCV 91.2 fL (80.0-100.0); MEAN PLATELET VOLUME 11.1 fL (7.4-10.4); MONOCYTES 13.1 % (2-11); NEUTROPHILS 60.1 % (40-80); PLATELET COUNT 152 10x3/uL (130-400); RBC 2.94 10x6/uL (4.00-5.40); RDW 15.6 % (11.5-14.5); WBC 5.2 10x3/uL (4.8-10.8)
--- NOTE | 2018-03-17 06:29 | NUR ---
PATIENT AWAKE AND MEETING WITH PT FOR MORNING ASSESSMENT.
[2018-03-17 06:31] LABS: ANION GAP 11.2 mmol/L (8-16); CALCIUM 8.1 mg/dL (8.5-10.1); CARBON DIOXIDE 26.6 mmol/L (21.0-32.0); POTASSIUM - SERUM 3.8 mmol/L (3.5-5.1)
--- NOTE | 2018-03-17 08:15 | NUR ---
PT RESTING IN BED WITH EYES OPEN CALL LIGHT IN REACH NO PROBLEMS WILL MONITER
[2018-03-17 11:40] VITALS: Ht 165.1 cm; Wt 115.7 kg
--- NOTE | 2018-03-17 18:18 | NUR ---
RESTING QUIETLY IN BED. NO S/S DISTRESS. CALL LIGHT IN REACH. BED IN LOWEST POSITION.
--- NOTE | 2018-03-17 18:36 | NUR ---
PT RESTING IN BED WITH EYES OPEN CALL LIGHT IN REACH NO PROBLEMS WILL MONITER
[2018-03-17 19:24] VITALS: BP 160/62
--- NOTE | 2018-03-17 20:24 | NUR ---
ASSISTED PATIENT TO BATHROOM USING WALKER AND ONE PERSON ASSIST.
--- NOTE | 2018-03-17 20:35 | NUR ---
ASSIST PATIENT BACK TO BED FROM BATHROOM USING WALKER. CALL LIGHT IN REACH
--- NOTE | 2018-03-17 21:28 | NUR ---
PATIENTS BLOOD SUGAR CHECKED. BLOOD SUGAR WAS 64. COVERED WITH 8 OZ OF ORANGE JUICE AND STIVEN CRACKERS. WCTM.
--- NOTE | 2018-03-17 22:23 | NUR ---
RECHECKED PATIENTS BLOOD SUGAR AFTER ADMINISTRATION OF 8 0Z OF ORANGE JUICE AND PACKAGE OF STIVEN CRACKERS AND PEANUT BUTTER. BLOOD SUGAR WAS 129.
--- NOTE | 2018-03-18 00:16 | NUR ---
PATIENT ASLEEP WITH EYES CLOSED LAYING IN SUPINE POSITION. HOB AT 30 DEGREES. 02 AT 2L VIA NC. RESPIRATIONS EVEN. NO SIGNS OF DISTRESS. CALL LIGHT IN REACH.
--- NOTE | 2018-03-18 01:56 | NUR ---
PATIENT ASLEEP WITH EYES CLOSED LAYING IN SUPINE POSITION. HOB AT 20 DEGREES. O2 AT 2L VIA NC IN USE. RESPIRATIONS EVEN. NO SIGNS OF DISTRESS. CALL LIGHT IN REACH.
[2018-03-18 07:35] VITALS: BP 163/58
--- NOTE | 2018-03-18 08:10 | NUR ---
SITTING UP IN BED EATING BREAKFAST. DENIES NEEDS OR C/O. INCONT OF URINE. WEARS PULL UPS. CALL LIGHT IN REACH
--- NOTE | 2018-03-18 13:48 | NUR ---
NAPPING IN RECLINER IN ROOM WITH TV ON. SAT UP TO EAT LUNCH AND APPEARS TO BE SLEEPING IN CHAIR. RESP UNLABORED. OXYGEN 2LNC IN PLACE. CALL LIGHT IN REACH
--- NOTE | 2018-03-18 17:03 | NUR ---
LAYING IN BED WATCHING TV. CALL LIGHT IN REACH
--- NOTE | 2018-03-18 19:04 | NUR ---
ASSISTED PATIENT TO BATHROOM USING WALKER. PATIENT HAD INCONTIENT ACCIDENT IN BED. LINENS CHANGED
--- NOTE | 2018-03-18 19:34 | NUR ---
ASSISTED PATIENT BACK TO BED USING WALKER AND ONE PERSON ASSIST. PATIENT REPOSTIONED FOR COMFORT. CALL LIGHT IN REACH
[2018-03-18 19:45] VITALS: BP 130/50
--- NOTE | 2018-03-18 22:40 | NUR ---
PATIENT ASLEEP WITH EYES CLOSED LAYING IN SUPINE POSITION. HOB AT 25 DEGREES. 02 AT 2L VIA NC IN USE. RESPIRATIONS EVEN. NO SIGNS OF DISTRESS. CALL LIGHT IN REACH.
--- NOTE | 2018-03-19 01:15 | NUR ---
PATIENT CLEANED OF INCONTINENT URINE AND THEN ASSISTED TO BATHROOM USING WALKER. PATIENTS BEDDING CHANGED ALONG WITH PATIENTS GOWN. PATIENT BACK TO BED AND REPOSITIONED FOR COMFORT. CALL LIGHT IN REACH.
--- NOTE | 2018-03-19 02:14 | NUR ---
PATIENT AWAKE LAYING IN BED WATCHING TELEVISION. 02 AT 2L VIA NC IN USE. RESPIRATIONS EVEN. NO SIGNS OF DISTRESS. CALL LIGHT IN REACH
--- NOTE | 2018-03-19 02:16 | NUR ---
PATIENT STATED THAT SHE IS HAVING SOME PAIN IN HER LEFT FOOT. DESCRIBES PAIN 6/10 ON 0-10 PAIN SCALE. WILL ADMINISTER PRN NORCO. WCTM.
--- NOTE | 2018-03-19 03:32 | NUR ---
PATIENT ASLEEP LAYING ON RIGHT SIDE. 02 AT 2L VIA NC IN USE. RESPIRATIONS EVEN. NO SIGNS OF DISTRESS. CALL LIGHT IN REACH.
--- NOTE | 2018-03-19 05:20 | NUR ---
PATIENT AWAKE AND ASSISTED TO BATHROOM USING WALKER. BACK TO BED AND REPOSITIONED FOR COMFORT. CALL LIGHT IN REACH.
[2018-03-19 06:40] LABS: BASOPHILS 0.5 % (0-2); EOSINOPHILS 6.7 % (0-7); HEMATOCRIT 26.6 % (36.0-48.0); HEMOGLOBIN 8.5 g/dL (12-16); IMMATURE GRANULOCYTES 0.5 % (0-5); LYMPHOCYTES 22.7 % (15-50); MCH 28.8 pg (26.0-34.0); MCV 90.2 fL (80.0-100.0); MEAN PLATELET VOLUME 10.7 fL (7.4-10.4); MONOCYTES 14.9 % (2-11); NEUTROPHILS 54.7 % (40-80); RBC 2.95 10x6/uL (4.00-5.40); RDW 15.3 % (11.5-14.5); WBC 4.2 10x3/uL (4.8-10.8)
[2018-03-19 07:03] LABS: ANION GAP 11.5 mmol/L (8-16); CALCIUM 7.9 mg/dL (8.5-10.1); CARBON DIOXIDE 31.2 mmol/L (21.0-32.0); CREATININE - SERUM 1.1 mg/dL (0.6-1.3); POTASSIUM - SERUM 3.7 mmol/L (3.5-5.1)
[2018-03-19 07:24] LABS: PLATELET COUNT 186 10x3/uL (130-400)
[2018-03-19 07:34] VITALS: BP 137/56
--- NOTE | 2018-03-19 08:08 | NUR ---
SITTING UP EATING BREAKFAST IN ROOM. DENIES NEEDS OR C/O. CALL LIGHT IN REACH
--- NOTE | 2018-03-19 21:55 | NUR ---
NYSTATIN POWER APPLIED FOR PT'S ABD FOLD AND BLADE AREA.
--- NOTE | 2018-03-19 22:38 | NUR ---
PT WATCHING TV, NO NEEDS NOTED, FLUIDS AND CALL LIGHT WITHIN REACH
--- NOTE | 2018-03-19 23:12 | NUR ---
ASSISTED PT TO BATHROOM AND BACK TO BED.
[2018-03-20 00:42] VITALS: BP 143/59
--- NOTE | 2018-03-20 02:36 | NUR ---
REST IN BED, CALL LIGHT IN REACH.
--- NOTE | 2018-03-20 07:18 | NUR ---
ASSISTED PT TO AND FROM BATHROOM VIA WHEELCHAIR. PT BACK IN BED. SITTING UP WATCHING TV. CALL LIGHT IN REACH. PT DENIES NEEDS OR PAIN. RESP EVEN AND UNLABORED NO DISTRESS NOTED. BED IN LOW POSITION. SIDE RAILS X2. WILL CONTINUE TO MONITOR.
[2018-03-20 08:00] VITALS: BP 171/57
--- NOTE | 2018-03-20 11:30 | NUR ---
PT SITTING UP IN WHEELCHAIR. CALL LIGHT IN REACH. PT DENIES NEEDS OR PAIN. WCTM
--- NOTE | 2018-03-20 13:52 | NUR ---
Nutrition Follow Up: Pt stated that she did not like the food here. She refused supplements. RD offered diet change but pt refused. RD encouraged pt to make staff aware of food preferences. Diet: ADA 2g Na PO Intake: 81% meal avg BM: 03/20/18 Labs reviewed Meds noted including Lasix Rec continue current diet. RD following.
--- NOTE | 2018-03-20 14:31 | NUR ---
PT LYING IN BED. CALL LIGHT IN REACH. PT DENIES NEEDS OR PAIN. WCTM
--- NOTE | 2018-03-20 17:41 | NUR ---
PT SITTING UP IN BED. CALL LIGHT IN REACH. BED IN LOW POSITION. SIDE RAILS X2. WCTM
[2018-03-20 20:00] VITALS: BP 151/56
--- NOTE | 2018-03-20 20:00 | NUR ---
PATIENT RECEIVED SITTING UP IN BED WATCHING TV. PATIENT ASSESSMENT & VITAL SIGNS DONE. PATIENT HAD NO C/O PAIN OR DISTRESS. PATIENT BED LOW. CALL LIGHT WITHIN REACH. WILL CONTINUE TO MONITOR.
--- NOTE | 2018-03-20 21:30 | NUR ---
PATIENT SHOWER GIVEN. LOTION APPLIED TO BODY. NYSTATIN POWDER UNDER BREASTS. PATIENT BED CHANGED. PATIENT MINIMAL ASSIST WITH SHOWER. PATIENT BRUSHED TEETH. PATIENT HAD VOID & BM. PATIENT RETURNED TO BED. BED LOW. CALL LIGHT WITHIN REACH. WILL CONTINE TO MONITOR.
--- NOTE | 2018-03-21 02:03 | NUR ---
PATIENT EYES CLOSED. RESPIRATIONS 18 & EVEN. PATIENT BED LOW. CALL LIGHT WITHIN REACH. WILL CONTINUE TO MONITOR.
--- NOTE | 2018-03-21 06:50 | NUR ---
PT ASLEEP FLUIDS AND CALL LIGHT WITHIN REACH
[2018-03-21 07:11] LABS: BASOPHILS 0.7 % (0-2); EOSINOPHILS 6.3 % (0-7); HEMATOCRIT 28.7 % (36.0-48.0); HEMOGLOBIN 9.1 g/dL (12-16); IMMATURE GRANULOCYTES 0.2 % (0-5); MCH 28.8 pg (26.0-34.0); MCHC 31.7 g/dL (31.0-37.0); MCV 90.8 fL (80.0-100.0); MEAN PLATELET VOLUME 10.7 fL (7.4-10.4); MONOCYTES 14.4 % (2-11); NEUTROPHILS 52.4 % (40-80); RBC 3.16 10x6/uL (4.00-5.40); RDW 15.2 % (11.5-14.5); WBC 4.3 10x3/uL (4.8-10.8)
--- NOTE | 2018-03-21 07:17 | NUR ---
AWAKE. NO SIGNS OF DISTRESS NOTED. NO C/O PAIN.
[2018-03-21 07:22] LABS: PLATELET COUNT 229 10x3/uL (130-400)
[2018-03-21 07:31] LABS: ANION GAP 12.9 mmol/L (8-16); CALCIUM 8.1 mg/dL (8.5-10.1); CARBON DIOXIDE 32.5 mmol/L (21.0-32.0); CREATININE - SERUM 1.1 mg/dL (0.6-1.3); POTASSIUM - SERUM 3.4 mmol/L (3.5-5.1); URIC ACID 7.2 mg/dL (2.6-7.2)
[2018-03-21 08:00] VITALS: BP 136/48
--- NOTE | 2018-03-21 08:00 | NUR ---
PATIENT IS ALERT/ORIENT. VOICES NO NEEDS AT THIS TIME. CALL LIGHT WITHIN REACH. VOICES NO NEEDS AT THIS TIME. WILL CONTINUE WITH PLAN OF CARE
--- NOTE | 2018-03-21 13:23 | NUR ---
PATIENT RESTING IN BED AFTER THERAPY. CALL LIGHT WITHIN REACH
[2018-03-21 19:30] VITALS: BP 142/53
--- NOTE | 2018-03-21 19:55 | NUR ---
GREETED PATIENT AND INTRODUCED MYSELF HER NURSE. PATIENT STATES SHE HAS HAD A PRETTY GOOD DAY TODAY. DENIES ANY NEEDS AT THIS TIME. CALL LIGHT IN REACH
--- NOTE | 2018-03-21 21:49 | NUR ---
ASSISTED PATIENT TO BATHROOM USING WHEELCHAIR. BACK TO BED AND REPOSTIONED FOR COMFORT. CALL LIGHT IN REACH
--- NOTE | 2018-03-22 00:32 | NUR ---
PATIENT ASLEEP WITH EYES CLOSED LAYING IN SUPINE POSITION. HOB AT 30 DEGREES. RESPIRATIONS EVEN. NO SIGNS OF DISTRESS. 02 AT 2L VIA NC IN USE. CALL LIGHT IN REACH.
--- NOTE | 2018-03-22 02:48 | NUR ---
PATIENT ASLEEP WITH EYES CLOSED LAYING IN SUPINE POSITION. HOB AT 30 DEGREES 02 AT 2L VIA NC IN USE. CALL LIGHT IN REACH.
--- NOTE | 2018-03-22 03:10 | NUR ---
ASSISTED PATIENT TO BATHROOM USING WHEELCHAIR. BACK TO BED AND REPOSITIONED FOR COMFORT. CALL LIGHT IN REACH.
--- NOTE | 2018-03-22 06:26 | NUR ---
ASSISTED PATIENT TO BATHROOM USING WHEELCHAIR. BACK TO BED AND REPOSTIONED FOR COMFORT. CALL LIGHT IN REACH.
[2018-03-22 08:00] VITALS: BP 130/51
--- NOTE | 2018-03-22 08:00 | NUR ---
SITTING UP IN BED FOR BREAKFAST. STATES HER LEFT FOOT IS PAINFUL AT TIMES. BRUISING NOTED TO LEFT SIDE OF FACE. INCONT OF URINE. CALL LIGHT IN REACH
[2018-03-22 19:52] VITALS: BP 128/55
--- NOTE | 2018-03-22 23:02 | NUR ---
PATIENT ASLEEP WITH EYES CLOSED LAYING IN SUPINE POSITION. HOB AT 30 DEGREES. 02 AT 2L VIA NC IN USE. RESPIRATIONS EVEN. NO SIGNS OF DISTRESS. CALL LIGHT IN REACH.
--- NOTE | 2018-03-23 02:05 | NUR ---
PATIENT ASLEEP WITH EYES CLOSED LAYING IN SUPINE POSITION. HOB AT 30 DEGREES. RESPIRATIONS EVEN. NO SIGNS OF DISTRESS. 02 AT 2L VIA NC IN USE.
--- NOTE | 2018-03-23 04:45 | NUR ---
PATIENT ASLEEP WITH EYES CLOSED LAYING IN SUPINE POSITION. HOB AT 30 DEGREES. RESPIRATIONS EVEN. NO SIGNS OF DISTRESS. O2 AT 2L IN USE VIA NC. CALL LIGHT IN REACH
[2018-03-23 07:06] LABS: BASOPHILS 0.7 % (0-2); EOSINOPHILS 8.8 % (0-7); HEMATOCRIT 26.6 % (36.0-48.0); HEMOGLOBIN 8.3 g/dL (12-16); LYMPHOCYTES 29.1 % (15-50); MCH 28.5 pg (26.0-34.0); MCHC 31.2 g/dL (31.0-37.0); MCV 91.4 fL (80.0-100.0); MONOCYTES 14.9 % (2-11); NEUTROPHILS 46.5 % (40-80); PLATELET COUNT 217 10x3/uL (130-400); RBC 2.91 10x6/uL (4.00-5.40); RDW 15.3 % (11.5-14.5)
[2018-03-23 07:25] LABS: ANION GAP 11.3 mmol/L (8-16); CREATININE - SERUM 1.3 mg/dL (0.6-1.3); POTASSIUM - SERUM 3.3 mmol/L (3.5-5.1)
[2018-03-23] MEDS ORDERED: ZYLOPRIM100 MG PO (08:40)
--- NOTE | 2018-03-23 09:35 | NUR ---
PATIENT DISCHARGING HOME TODAY WITH FAMILY. PATIENT HAS DECLINED HOME HEALTH AT THIS TIME BUT [facility]ES [facility]. NO NEW DME NEEDED AT THIS TIME. DR. DIETRICH 03/27/18 @ 11:30, DR. SPENCER OFFICE WILL CALL PATIENT WITH AN APPOINTMENT. PATIENT CHOICE FORM SIGNED AND IMFM FORM SIGNED COPIES GIVEN TO PATIENT AND FILED IN CHART. DISCHARGE INSTRUCTIONS WITH FIM DATA FAXED TO PCP.
--- NOTE | 2018-04-04 10:28 | RHP ---
PATIENT: AVI GROVES MEDICAL RECORD: [id number] ACCOUNT: [id number] [facility] ADMISSION DATE: 03/16/18 REHABILITATION HISTORY AND PHYSICAL EXAMINATION POST ADMISSION PHYSICIAN EXAMINATION DATE OF ADMISSION: 03/16/2018 ADMITTING DIAGNOSIS: Acute renal failure. HISTORY OF PRESENT ILLNESS: The patient is a 77-year-old female patient admitted secondary to acute renal failure. She presented to Emergency Room on 03/08/2018, complained of increasing fatigue, lightheadedness, weakness all resulting in a fall at home on 03/02/2018, which she did not seek medical treatment. She reports she is having syncopal episodes and falling, and she did struck the left side of her head. She was alert and oriented, had ecchymosis and contusion to the left eye. CT showed a left front scalp hematomas. She has got a history of hyperlipidemia, coronary artery disease, chronic diastolic congestive heart failure, pulmonary hypertension, diabetes, stage II chronic kidney disease and COPD. She wears O2 at night. Chest x-ray showed nothing acute. Her EKG showed normal sinus rhythm with sinus arrhythmia and ventricular rate of 65. The patient's labs showed a creatinine of 5.3, BUN of 83, which was elevated from her most recent ones. Hemolytic indices indicated a normocytic anemia. Iron studies were normal. There was a normal TIBC. Hemoccult was positive and GI was consulted. An EGD showed a normal endoscopy other than a small herniation in her body of her stomach. Currently, she is on telemetry in normal sinus rhythm. Her anemia is stable. Her BUN and creatinine are back to baseline. She does continue to be weak and fatigued while working with PT and OT. She tires easily and gets short of breath. Currently, she is only getting short of breath with exertion and wearing O2 during the day. Wants to regain her strength, so she can return home at her prior level of functioning. BARRIERS TO THIS DISCHARGE: That she does live alone. She is on a case hardener and she has had all this recent falls with recent injury to her scalp and face region. COMORBIDITIES: Include syncope and collapse, acute renal insufficiency, diabetes mellitus, chronic kidney disease, coronary artery disease, generalized weakness, anemia, heme-positive stool, hypotension, positive urine cultures, left front scalp hematoma, mild cardiomegaly, microcytic anemia, depression. PAST MEDICAL HISTORY: Significant for diabetic neuropathy, cataracts. She has had diabetes, CHF, coronary artery disease with stent placement, edema, skin cancers, arthritis, chronic back pain. PAST SURGICAL HISTORY: Includes a left knee surgery, wrist fracture and repair in the past, gallbladder, hysterectomy, cataracts, lumbar discectomy and ankle surgery. ALLERGIES: No known drug allergies. CURRENT MEDICATIONS: Include atorvastatin 10 mg, she takes 3 times weekly. She is on Carafate 1 gram t.i.d.; potassium 20 mEq daily; Actos 45 mg daily; Protonix 40 mg b.i.d.; metoprolol 25 mg daily; glipizide 20 mg b.i.d.; furosemide 40 mg daily; Plavix 75 mg daily; citalopram 10 mg daily; aspirin 81 HISTORY AND PHYSICAL [id number] GROVES,EUNAFAE mg daily; glucose replacement protocol as needed for low blood sugar; Zanaflex 4 mg b.i.d.; Novolin 10 units at bedtime. She is on a low-resistant sliding scale with regular. [place] 7.5 one tab every 6 hours p.r.n. and Neurontin 800 mg t.i.d. HABITS: No current alcohol or tobacco use. FAMILY HISTORY: Noncontributory. SOCIAL HISTORY: The patient hopes to return back home and get back to her prior level of functioning. REVIEW OF SYSTEMS: GENERAL: Denies cold, cough, or congestion. CARDIOVASCULAR: Denies any chest pain. LUNGS: Does complain of shortness of breath at times. PHYSICAL EXAMINATION: VITAL SIGNS: Stable. She is afebrile. She is 5 feet 5 inches, 255 pounds. GENERAL: A somewhat obese female in no acute distress, alert upon exam. HEENT: Normocephalic and atraumatic, mucosa moist. NECK: Supple. No lymphadenopathy. LUNGS: Clear at this time. HEART: Regular rate and rhythm. No murmurs, rubs or gallops. ABDOMEN: Benign. EXTREMITIES: No clubbing, cyanosis or edema. NEUROLOGIC: She does have noted weakness and also noted decreased feeling in both extremities. LABORATORY DATA: White count is 5.2, H&H 8.5 and 26.8, platelet count is 152. Sodium 139, potassium 3.8, BUN and creatinine of 13 and 1.0 and blood sugar is noted to be 206. ASSESSMENT: This is a 77-year-old female patient admitted to rehab with a working diagnosis of xdqnr-wh-yqngvjw renal failure. The patient has potential to make improvement. We will institute the following multidisciplinary therapies including, but not limited to physical, occupational, respiratory, speech, nutritional services, prosthetics and orthotics. Given her complex medical condition and risks for more complications, rehabilitation services cannot be provided at a low level of care such as skilled nurse facility. PLAN: 1. Admit to [facility] rehab for inpatient therapy to include the following disciplines: A. Physical therapy to improve gait, all transfer skills and bed mobility to a modified independent level. B. Occupational therapy to a modified independent level. C. Case management to assist with discharge planning and placement options. D. Nutrition to assist with nutritional needs. E. Rehabilitation nursing to assist in monitoring the patient's underlying medical condition and to assist with any type of bowel and bladder management. 2. The patient's current medication and medical care will be continued. 3. The patient will be placed on standard fall precautions. 4. The patient's estimated length of stay is approximately 7-10 days. 5. I will discuss this patient during care team staff meeting this week. HISTORY AND PHYSICAL [id number] AVI GROVES TRANSINT:[id number] Voice Confirmation ID: [id number] DOCUMENT ID: [id number] 03/22/2018 Edited for alexander SHELDON. PITO notes whether there has been none or any medical/functional change since admission: - No change since preadmission screen. PITO attests patient continues to be appropriate for IRF: - Continues to be appropriate. NICOLLE JAVIER MD at 1028 CC: [id number] DICTATION DATE: 03/17/18 1547 BIOTECH PRODUCTION SPECIALIST: 03/17/18 2159 DIS IN 03/23/18 [facility] [address] [place] [address]
== END 2018-03-23 14:00 | disposition home or self-care (01) | DRG 683 ==
LOC: D.REHAB 15:36
PROVIDERS: ADMIT Emergency Medicine
DX: N17.9 Acute kidney failure, unspecified (principal); I13.0 Hypertensive heart and chronic kidney disease with heart failure and stage 1 through stage 4 chronic kidney disease, or unspecified chronic kidney disease; I50.32 Chronic diastolic (congestive) heart failure; N39.0 Urinary tract infection, site not specified; E11.22 Type 2 diabetes mellitus with diabetic chronic kidney disease; N18.2 Chronic kidney disease, stage 2 (mild); R55 Syncope and collapse; I25.10 Atherosclerotic heart disease of native coronary artery without angina pectoris; R53.1 Weakness; I95.9 Hypotension, unspecified; S00.03XD Contusion of scalp, subsequent encounter; W19.XXXD Unspecified fall, subsequent encounter; F32.9 Major depressive disorder, single episode, unspecified; D50.9 Iron deficiency anemia, unspecified; E11.40 Type 2 diabetes mellitus with diabetic neuropathy, unspecified; E11.65 Type 2 diabetes mellitus with hyperglycemia; J44.9 Chronic obstructive pulmonary disease, unspecified; I27.20 Pulmonary hypertension, unspecified

== ENCOUNTER → 2018-04-04 22:53 | Outpatient (CLI) | payer MEDICARE ==
[2018-03-17 11:40] VITALS: BMI 42.4
[~2018-04-04 22:53] MED LIST changes: +ZYLOPRIM100 MG PO
[2018-04-04 23:28] LABS: APPEARANCE CLOUDY (CLEAR); BILIRUBIN NEGATIVE (NEGATIVE); COLOR YELLOW (YELLOW); GLUCOSE NEGATIVE (NEGATIVE); KETONE NEGATIVE (NEGATIVE); NITRITE NEGATIVE (NEGATIVE); PROTEIN NEGATIVE (NEGATIVE); UROBILINOGEN NORMAL (NORMAL)
[2018-04-04 23:29] LABS: BACTERIA MODERATE /hpf (NONE SEEN); EPITHELIAL CELLS 0-5 /hpf (0-5); RED CELLS - URINE 0-5 /hpf (0-5)
== END | disposition home or self-care (01) ==
LOC: D.LABREF 22:53
PROVIDERS: ATTEND Family Medicine
DX: R30.0 Dysuria (principal)

== ENCOUNTER → 2018-07-23 11:40 | Outpatient (CLI) | payer MEDICARE ==
[2018-03-17 11:40] VITALS: BMI 42.4
--- NOTE | 2018-07-25 11:20 | ST ---
PATIENT:AVI GROVES MEDICAL RECORD: [id number] SEX: F LOCATION:[facility] ORDER #: ADMISSION DATE: 07/23/18 AGE OF PATIENT: 78 REFERRING PHYSICIAN: INTERPRETING PHYSICIAN: RUSSELL GRACE MD DATE OF SERVICE: 07/23/2018 INDICATION: Angina, coronary artery disease, hypertension, hyperlipidemia, and shortness of breath. She was exercised on standard Lexiscan protocol with 31 mCi of sestamibi injected at peak stress and 10 mCi used previously for rest images. FINDINGS: Gated SPECT reveals preserved ejection fraction at 70% with good wall motion and thickening and brightening throughout all segments. SPECT imaging Cardiolite was used as myocardial fusion agent. There is homogeneous uptake throughout all segments at rest and stress with no evidence of inducible ischemia or previous infarction. OVERALL IMPRESSION: 1. This is a normal nuclear stress test with no evidence of inducible ischemia or previous infarction. 2. Gated SPECT reveals a preserved ejection fraction at 70%. In this patient with ongoing symptomatology, the current scan does not suggest the presence of hemodynamically significant coronary artery disease. Evaluate noncardiac etiology of chest pain. TRANSINT:[id number] Voice Confirmation ID: [id number] DOCUMENT ID: [id number] RUSSELL GRACE MD at 1120 CC: XIMENA DIETRICH [id number] DICTATION DATE: 07/24/18 1218 CUSTOMER MANAGER: 07/24/18 2212 [facility] CLI 07/23/18 [place] [id number] [place] [id number]
== END | disposition home or self-care (01) ==
LOC: D.HCCARDIO 11:30
PROVIDERS: ATTEND Internal Medicine Interventional Cardiology
DX: R07.9 Chest pain, unspecified (principal)

== ENCOUNTER → 2018-08-20 11:53 | Outpatient (CLI) | payer MEDICARE ==
[2018-03-17 11:40] VITALS: BMI 42.4
--- NOTE | 2018-08-20 18:39 | EC ---
PATIENT:AVI GROVES DATE OF SERVICE: 08/20/18 SEX: F MEDICAL RECORD: [id number] DATE OF : 40 LOCATION:[facility] AGE OF PATIENT: 78 ADMISSION DATE: 08/20/18 REFERRING PHYSICIAN: INTERPRETING PHYSICIAN: RUSSELL ROY MD ECHOCARDIOGRAM REPORT ECHO CHARGES 4 ECHO COMPLETE Date: 08/20/18 CLINICAL DIAGNOSIS: DYSPNEA/ANGINA/CAD ECHOCARDIOGRAPHIC MEASUREMENTS (adult normal given) AC root (d.<3.7cm) 2.7 cm LV Septum d (<1.2 cm> 1.3 cm Valve Excursion 1.7 cm LV Septum (systole) 1.6 cm Left Atria (s.<4.0cm> 4.2 cm LVPW d(<1.2cm) 1.5 cm RV (d.<2.3cm) 3.8 cm LVPW (sytole) 1.7 cm LV diastole(<5.6CM) 4.7 cm MV E-F(>70mm/sec) cm LV systole 3.1 cm LVOT Diameter 1.8 cm MV exc.(>10mm) 1.6 cm Est.ejection fraction (50-75%) % DOPPLER: LVIT cm/sec A 98 cm/sec E 148 cm/sec LA cm/sec RVSP 66 mmHg LVOT 113 cm/sec AOP1/2T m/s Asc. Ao 201 cm/sec RVOT 73 cm/sec RA cm/sec PA 125 cm/sec AV Gradient Peak 16.11mmHg AV Mean 8.42 mmHg AV Area 1.7 cm MV Gradient Peak 14.49mmHg MV Mean 4.19 mmHg MV Area cm COMMENTS: Plc Controls Engineer: Alfredo CAMERON Media Services Specialist: 1 Dr. Roy TAPE# PACS Pericardial Effusion N DATE OF SERVICE: 08/20/2018 FINDINGS: 1. Left ventricular chamber size is within normal limits. Left ventricular systolic function is normal. Overall ejection fraction is estimated at 65%. 2. Left atrium is enlarged at 4.2 cm. Right atrium and right ventricular chamber sizes are mildly dilated as well. 3. Valvular structures have normal structure and motion. 4. Doppler interrogation reveals hswl-ar-oeqnylar mitral regurgitation and prug-bu-pbzjgfpb tricuspid regurgitation. No other valvular insufficiency or ECHOCARDIOGRAM REPORT [id number] AVI GROVES stenosis. Pulmonary systolic pressure is elevated, estimated at 66 mmHg. 5. No evidence of pericardial effusion or left ventricular thrombus. TRANSINT:[id number] Voice Confirmation ID: [id number] DOCUMENT ID: [id number] RUSSELL ROY MD at 1839 CC: [id number] DICTATION DATE: 08/20/18 1606 GEOLOGY PROFESSOR: 08/20/18 1818 [facility] [address] [place] [id number]
== END | disposition home or self-care (01) ==
LOC: D.HCCARDIO 11:53
PROVIDERS: ATTEND Internal Medicine Interventional Cardiology
DX: R06.02 Shortness of breath (principal)

== ENCOUNTER 2018-10-22 09:02 | Day surgery (SDC) | payer MEDICARE ==
[~2018-10-22] VITALS: Ht 165.1 cm; Wt 111.4 kg
[2018-10-22 09:34] LABS: HEMATOCRIT 28.7 % (36.0-48.0); HEMOGLOBIN 9.3 g/dL (12-16); MCHC 32.4 g/dL (31.0-37.0); MCV 89.4 fL (80.0-100.0); MEAN PLATELET VOLUME 10.6 fL (7.4-10.4); PLATELET COUNT 224 10x3/uL (130-400); RBC 3.21 10x6/uL (4.00-5.40); RDW 15.7 % (11.5-14.5)
[2018-10-22 09:45] LABS: ANION GAP 12.1 mmol/L (8-16); CALCIUM 9.1 mg/dL (8.5-10.1); CARBON DIOXIDE 31.4 mmol/L (21.0-32.0); CREATININE - SERUM 1.4 mg/dL (0.6-1.3); POTASSIUM - SERUM 3.5 mmol/L (3.5-5.1)
[2018-10-22] MEDS ORDERED: RESTASIS EMU 0.0 (10:04)
[2018-10-22 10:05] VITALS: BP 155/67; Ht 165.1 cm; Wt 111.4 kg
--- NOTE | 2018-10-22 11:18 | NUR ---
1110 DR. MORALES ROUNDS 1118 FL ADA DIET SERVED.
[2018-10-22 11:35] LABS: EOSINOPHILS 4 % (0-7); LYMPHOCYTES 29 % (15-50); MONOCYTES 11 % (2-11); NEUTROPHILS 55 % (40-80); PLATELET ESTIMATE NORMAL
--- NOTE | 2018-10-22 11:55 | NUR ---
1150 REQUESTED AND PROVIDED DEPENDS. DC INSTS GIVEN VOICED UNDERSTANDING RELEASED IN WC.
--- NOTE | 2018-10-22 12:56 | OP ---
PATIENT NAME: AVI GROVES MEDICAL RECORD: [id number] :40 LOCATION:[facility] ADMISSION DATE: SURGEON: WILLI MORALES DO DATE OF OPERATION: 10/22/2018 PROCEDURE: Colonoscopy with biopsies. INDICATIONS FOR PROCEDURE: History of colon polyps, diverticulosis of the colon, family history positive for colon cancer in the patient's brother, iron deficiency anemia, left lower quadrant abdominal pain, chronic diarrhea. SCOPE: Olympus video pediatric colonoscope. MEDICATIONS: Propofol 400 mg IV per anesthesia. WITHDRAWAL TIME: 11 minutes. ESTIMATED BLOOD LOSS: Minimal. COMPLICATIONS: None. FINDINGS: Informed consent was given. The patient was made comfortable with the above medication. After reaching an adequate level of sedation by slow IV push, the patient was placed on her left side. A digital rectal examination was performed and was normal. The endoscope was then advanced under direct visualization through the rectum to the cecum, confirmed by the presence of the appendiceal orifice and ileocecal valve. The endoscope was slowly withdrawn and the mucosa was carefully examined. The prep quality was good. There were no polyps visualized on today's examination. There was evidence of moderate diverticulosis involving the descending and sigmoid colon. Retroflexion was performed in the rectum with visualization of prior intervention, but otherwise normal rectal wall mucosa. The endoscope was withdrawn from the patient. The patient tolerated the procedure well and there were no complications. IMPRESSION: 1. Moderate diverticulosis of the descending and sigmoid colon. 2. Prior intervention in the rectum. 3. Otherwise, normal colonoscopy. PLAN AND RECOMMENDATIONS: 1. Discharge home when recovery parameters are met. 2. Follow up biopsy specimen results and treat accordingly if found to have microscopic colitis. 3. Continue Metamucil supplementation. 4. Continue iron supplementation. 5. No further colonoscopies are necessary due to the patient's age, unless symptoms warrant evaluation. TRANSINT:[id number] Voice Confirmation ID: [id number] DOCUMENT ID: [id number] OPERATIVE REPORT [id number] AVI GROVES WILLI MORALES DO at 1256 CC: [id number] DICTATION DATE: 10/22/18 1103 EFFICIENCY MINER BLASTING: 10/22/18 1210 [facility] 10/22/18 [place] [address]
== END 2018-10-22 11:55 | disposition home or self-care (01) ==
LOC: D.OPS 09:02
PROVIDERS: Anesthesiology; ATTEND Internal Medicine Gastroenterology
DX: K57.90 Diverticulosis of intestine, part unspecified, without perforation or abscess without bleeding (principal); Z86.010 Personal history of colon polyps; K52.9 Noninfective gastroenteritis and colitis, unspecified; D50.9 Iron deficiency anemia, unspecified; R10.32 Left lower quadrant pain

== ENCOUNTER → 2018-12-26 17:45 | Outpatient (CLI) | payer MEDICARE ==
[2018-10-22 10:05] VITALS: BMI 40.8
[~2018-12-26 17:45] MED LIST changes: +RESTASIS EMU 0.0
== END | disposition home or self-care (01) ==
LOC: D.LABREF 17:45
PROVIDERS: ATTEND Urology
DX: N39.0 Urinary tract infection, site not specified (principal)

== ENCOUNTER → 2019-02-22 12:42 | Outpatient (CLI) | payer MEDICARE ==
[2018-10-22 10:05] VITALS: BMI 40.8
== END | disposition home or self-care (01) ==
LOC: D.US 02-14 14:00
PROVIDERS: ATTEND Nurse Practitioner Family
DX: I12.9 Hypertensive chronic kidney disease with stage 1 through stage 4 chronic kidney disease, or unspecified chronic kidney disease (principal); N18.3 Chronic kidney disease, stage 3 (moderate); E11.22 Type 2 diabetes mellitus with diabetic chronic kidney disease; D63.1 Anemia in chronic kidney disease; M10.9 Gout, unspecified; Z68.38 Body mass index [BMI] 38.0-38.9, adult

== ENCOUNTER 2019-09-22 23:47 | Inpatient (IN) | payer MEDICARE, MEDICAID ==
[~2019-09-22] VITALS: Ht 165.1 cm; Wt 106.6 kg
[~2019-09-22 23:47] MED LIST changes: +HYDROCODON-ACE1 EA10 PO; -NORCO 7.5/325 T1 TA1 PO
[2019-09-22] MEDS ORDERED: LASIX40 MG PO (23:52)
[2019-09-22] MEDS ORDERED: FERROUS GLUCON324 MG PO (23:52)
[2019-09-22] MEDS ORDERED: VITAMIN B-121000 MCG PO (23:53)
[2019-09-22] MEDS ORDERED: ISOSORBIDE DINI30 MG PO (23:55)
[2019-09-23 01:01] LABS: BASOPHILS 0.1 % (0-2); EOSINOPHILS 0 % (0-7); HEMATOCRIT 34.7 % (36.0-48.0); HEMOGLOBIN 11.6 g/dL (12-16); IMMATURE GRANULOCYTES 0.1 % (0-5); MCH 30.9 pg (26.0-34.0); MCHC 33.4 g/dL (31.0-37.0); MCV 92.5 fL (80.0-100.0); MEAN PLATELET VOLUME 10.9 fL (7.4-10.4); MONOCYTES 7.8 % (2-11); RBC 3.75 10x6/uL (4.00-5.40); RDW 12.6 % (11.5-14.5); WBC 7.7 10x3/uL (4.8-10.8)
[2019-09-23 01:06] LABS: PLATELET COUNT 280 10x3/uL (130-400)
[2019-09-23 01:22] LABS: ALKALINE PHOSPHATASE 110 U/L (30-120); ALT (SGPT) 16 U/L (10-68); BILIRUBIN - TOTAL 0.78 mg/dL (0.2-1.3); C-REACTIVE PROTEIN 0.4 mg/dL (0.0-0.9); CALC OSMOLALITY 265 mosm/kg (275-300); CALCIUM 9.5 mg/dL (8.5-10.1); CHLORIDE - SERUM 91 mmol/L (98-107); CREATININE - SERUM 1.4 mg/dL (0.6-1.3); GLUCOSE 204 mg/dL (74-106); LIPASE 69 U/L (73-393); MAGNESIUM - SERUM 1.7 mg/dL (1.8-2.4); PRO BNP 940 pg/mL (0-450); PROTEIN - SERUM 7.8 g/dL (6.4-8.2); SODIUM 129 mmol/L (136-145); TROPONIN-I < 0.017 ng/mL (0.000-0.060); UREA NITROGEN 15 mg/dL (7-18); eGFR NON AFRICAN AMERICAN 38 mL/min (90-120)
[2019-09-23 01:24] LABS: POTASSIUM - SERUM 2.7 mmol/L (3.5-5.1)
[2019-09-23 01:41] LABS: BILIRUBIN NEGATIVE (NEGATIVE); GLUCOSE 100 mg/dL (NEGATIVE); KETONE MODERATE mg/dL (NEGATIVE); NITRITE POSITIVE (NEGATIVE); UROBILINOGEN NORMAL (NORMAL)
[2019-09-23 01:42] LABS: BACTERIA MANY /hpf (NEGATIVE); EPITHELIAL CELLS 0-5 /hpf (0-5); RED CELLS - URINE 0-5 /hpf (0-5); WHITE CELLS - URINE 0-5 /hpf (NEGATIVE)
[2019-09-23] MEDS ORDERED: MACROBID100 MG PO (02:08)
[2019-09-23] MEDS ORDERED: ZOFRAN ODT4 MG/UDTAB PO (02:09)
[2019-09-23 06:20] VITALS: BP 163/77; Ht 165.1 cm; Wt 106.6 kg
[2019-09-23] MEDS ORDERED: ISOSORBIDE MONO30 M1 PO (07:23)
[2019-09-23 11:12] VITALS: BP 151/72
[2019-09-23 18:28] VITALS: BP 147/66
[2019-09-23 20:00] VITALS: BP 127/57
[2019-09-23 21:00] VITALS: BP 121/57
[2019-09-24] VITALS: BP 136/47
[2019-09-24 04:00] VITALS: BP 90/42
[2019-09-24 05:04] LABS: BASOPHILS 0.5 % (0-2); EOSINOPHILS 2.2 % (0-7); HEMATOCRIT 29.4 % (36.0-48.0); HEMOGLOBIN 9.4 g/dL (12-16); LYMPHOCYTES 28.5 % (15-50); MCH 30.7 pg (26.0-34.0); MEAN PLATELET VOLUME 10.7 fL (7.4-10.4); MONOCYTES 16.2 % (2-11); NEUTROPHILS 52.6 % (40-80); RBC 3.06 10x6/uL (4.00-5.40)
[2019-09-24 05:06] LABS: MCV 96.1 fL (80.0-100.0); PLATELET COUNT 216 10x3/uL (130-400); WBC 3.7 10x3/uL (4.8-10.8)
[2019-09-24 05:42] LABS: CALCIUM 8.3 mg/dL (8.5-10.1); CARBON DIOXIDE 28.9 mmol/L (21.0-32.0); CREATININE - SERUM 1.5 mg/dL (0.6-1.3)
[2019-09-24 05:50] LABS: POTASSIUM - SERUM 3.9 mmol/L (3.5-5.1)
[2019-09-24 05:51] LABS: TROPONIN-I 1.31 ng/mL (0.000-0.060)
--- NOTE | 2019-09-24 05:55 | NUR ---
PAGED RA BARNETT APN, REGARDING THE INCREASE IN THE PATIENT TROPONIN.
--- NOTE | 2019-09-24 10:32 | NUR ---
TELEMETRY SB. UP AMBULATING IN ROOM. GAIT STEADY.
[2019-09-24 11:00] VITALS: BP 110/55
[2019-09-24 12:56] LABS: CKMB 4.7 U/L (0.0-3.6); CREATINE KINASE 253 UL (21-215)
[2019-09-24 12:58] LABS: TROPONIN-I 0.843 ng/mL (0.000-0.060)
[2019-09-24 15:00] VITALS: BP 143/61
[2019-09-24] MEDS ORDERED: ELIQUIS5 MG PO ×2 (15:49→15:50)
--- NOTE | 2019-09-24 20:16 | NUR ---
REPORT RECEIVED, WILL CONT POC. PT A&O, UP IN BED WATCHING TV. NO S/S OF DISTRESS OBSERVED. RR EVEN & UNLABORED ON ROOM AIR. PT REPORTS THAT SHE FEELS MUCH BETTER TODAY. DENIES NEEDS AT THIS TIME. CALL LIGHT IN REACH, BED LOCKED AND LOWERED. WILL CONT TO MONITOR. ASSESSMENT COMPLETED AT THIS TIME.
[2019-09-24 22:30] VITALS: BP 151/65
[2019-09-25 04:30] VITALS: BP 96/61
--- NOTE | 2019-09-25 05:00 | NUR ---
URINE CULTURE COLLECTED AND TAKEN TO LAB.
[2019-09-25 06:17] LABS: BASOPHILS 0.3 % (0-2); EOSINOPHILS 4.5 % (0-7); HEMATOCRIT 30.2 % (36.0-48.0); HEMOGLOBIN 9.4 g/dL (12-16); IMMATURE GRANULOCYTES 0.3 % (0-5); MCH 30.2 pg (26.0-34.0); MCHC 31.1 g/dL (31.0-37.0); MCV 97.1 fL (80.0-100.0); MEAN PLATELET VOLUME 10.8 fL (7.4-10.4); MONOCYTES 13.1 % (2-11); NEUTROPHILS 54.8 % (40-80); PLATELET COUNT 236 10x3/uL (130-400); RBC 3.11 10x6/uL (4.00-5.40)
[2019-09-25 06:47] LABS: ANION GAP 11.2 mmol/L (8-16); CALCIUM 8.5 mg/dL (8.5-10.1); CARBON DIOXIDE 27.7 mmol/L (21.0-32.0); CREATININE - SERUM 1.4 mg/dL (0.6-1.3); POTASSIUM - SERUM 3.9 mmol/L (3.5-5.1)
[2019-09-25 08:46] VITALS: BP 169/70
--- NOTE | 2019-09-25 10:15 | NUR ---
IV AND TELEMETRY DCD. DC PLANS GIVEN. UNDERSTANDING VOICED. ESCORTED TO CAR BY W/C.
--- NOTE | 2019-09-26 18:35 | MORECARE ---
CASE MANAGEMENT DISCHARGE SUMMARY PATIENT: KETTY TEE UNIT: [id number] ADM DATE: 09/23/19 AGE: 79 : 40 SEX: F ROOM/BED: D.5204 AUTHOR: JORDY CORRALES PHYSICIAN: REFERRING PHYSICIAN: GREGORIA PEDRAZA MD DATE OF SERVICE: 09/26/19 Discharge Plan Patient Name: KETTY TEE Facility: [facility] : 1940 Planned Disposition: Home Anticipated Discharge Date: 09/25/19 Discharge Date: 09/25/2019 Expected LOS: 2 Initial Reviewer: [email or web address] Initial Review Date: 09/23/2019 Generated: 09/26/19 7:34 pm Comments DCP- Discharge Planning Updated by [email or web address]: Mary Ann Zabala on 09/25/19 9:[address] CM met with patient regarding DC needs/plans, she agrees. PCP: Dr. Sherman. Pharmacy: [facility]. Lives at home alone, but states she has multiple family members who assist with her care and transportation. HHS: [facility]. [place] provides 2 personal caregivers, for housework. Emergency contact is Monse Cortez (dtr) Daughter, , Almita Cortez (g-dtr) [phone]. G-dtr or daughter purchase her groceries. DME: walker, cane, shower chair, scooter (uses outside), grab bars. Patient denies the need for HHS, Rehab, SN. DC IMM signed, declined her copy. DC transportation: Monse or Almita. Coverage Notice Reviewer: [id number] - Mary Ann Zabala Notice Issued Date-Time: 09/25/2019 10:01 Notice Type: IM Discharge Notice Notice Delivered To: Patient Relationship to Patient: Self Senior Software Developer Name: Ketty Tee Delivery Method: HAND - Hand Delivered Sharlene Days: Prior Verbal Notification: Recipient Understood Notice: Yes Recipient Signature: Yes Med Rec Note Co-signed by Attending: Coverage Notice Comment: DC IMM Patient Name: KETTY TEE Page [phone] at 1835 All edits/amendments must be made on the electronic document DICTATION DATE: 09/26/191833 ACCOUNTING TECHNICIAN: TRUDY 09/26/191833 RPT#: [id number] DC DATE:09/25/19 STATUS: DIS IN [facility] [address] [place] [address] END OF REPORT
--- NOTE | 2019-09-27 08:19 | EC ---
PATIENT:AVI GROVES DATE OF SERVICE: 09/23/19 SEX: F MEDICAL RECORD: [id number] DATE OF : 40 LOCATION:D.M2 D.211 AGE OF PATIENT: 79 ADMISSION DATE: 09/23/19 REFERRING PHYSICIAN: INTERPRETING PHYSICIAN: YUSRA HERNANDEZ MD ECHOCARDIOGRAM REPORT ECHO CHARGES 4 ECHO COMPLETE Date: 09/24/19 CLINICAL DIAGNOSIS: CHF ECHOCARDIOGRAPHIC MEASUREMENTS (adult normal given) AC root (d.<3.7cm) 3.1 cm LV Septum d (<1.2 cm> 0.8 cm Valve Excursion 1.6 cm LV Septum (systole) 1.2 cm Left Atria (s.<4.0cm> 3.7 cm LVPW d(<1.2cm) 1.3 cm RV (d.<2.3cm) 3.5 cm LVPW (sytole) 1.4 cm LV diastole(<5.6CM) 6.2 cm MV E-F(>70mm/sec) cm LV systole 5.1 cm LVOT Diameter 1.6 cm MV exc.(>10mm) cm Est.ejection fraction (50-75%) % DOPPLER: LVIT cm/sec A 76 cm/sec E 102 cm/sec LA cm/sec RVSP 31.4 mmHg LVOT 98 cm/sec AOP1/2T m/s Asc. Ao 148 cm/sec RVOT 65 cm/sec RA cm/sec PA 83 cm/sec AV Gradient Peak 8.8 mmHg AV Mean 4.9 mmHg AV Area 1.6 cm MV Gradient Peak 6.9 mmHg MV Mean 2.7 mmHg MV Area cm COMMENTS: Tray Packer: Maria BAEZ Cannon Fire Direction Specialist: 3 Dr. Hernandez TAPE# PACS Pericardial Effusion N DATE OF SERVICE: Adequate 2D, color flow imaging, spectral Doppler, and M-Mode. No LVH. LV internal dimension is normal. Wall motion is normal. EF is greater than or equal to 55%. Aortic valve is tricuspid. No evidence of stenosis by Doppler interrogation. Left atrium is normal at 3.7 cm. Mitral valve shows no prolapse. Trace MR. Right-sided chambers are grossly normal. Trace TR. TRANSINT:[id number] Voice Confirmation ID: [id number] DOCUMENT ID: [id number] ECHOCARDIOGRAM REPORT [id number] GROVES,EUYUSRA BOLAÑOS MD at 0819 CC: [id number] DICTATION DATE: 09/24/19 1440 WAFER FABRICATOR: 09/24/19 2254 DIS IN 09/25/19 [facility] [address] [place] [id number]
== END 2019-09-25 10:16 | disposition home or self-care (01) | DRG 176 ==
LOC: D.ER 23:47 → D.M2 09-23 04:38 → D.M3 09-24 00:52 → D.M2 09-24 00:56
PROVIDERS: Family Medicine; Family Medicine Adult Medicine; ADMIT Family Medicine; ATTEND Family Medicine
DX: I26.99 Other pulmonary embolism without acute cor pulmonale (principal); N39.0 Urinary tract infection, site not specified; I50.30 Unspecified diastolic (congestive) heart failure; I50.32 Chronic diastolic (congestive) heart failure; I25.10 Atherosclerotic heart disease of native coronary artery without angina pectoris; I11.0 Hypertensive heart disease with heart failure; E11.9 Type 2 diabetes mellitus without complications; E78.5 Hyperlipidemia, unspecified; E66.01 Morbid (severe) obesity due to excess calories

== ENCOUNTER 2019-10-02 00:30 | Inpatient (IN) | payer MEDICARE, MEDICAID ==
[~2019-10-02] VITALS: Ht 165.1 cm; Wt 102.7 kg
[2019-10-02] VITALS (21 sets, daily range): BP systolic 103–167; BP diastolic 46–80; Ht 165.1 cm; Wt 102.7 kg
[~2019-10-02 00:30] MED LIST changes: +ELIQUIS5 MG PO; +FERROUS GLUCON324 MG PO; +ISOSORBIDE DINI30 MG PO; +ISOSORBIDE MONO30 M1 PO; +MACROBID100 MG PO; +VITAMIN B-121000 MCG PO; +ZOFRAN ODT4 MG/UDTAB PO
[2019-10-02 01:11] LABS: BASOPHILS 0.6 % (0-2); EOSINOPHILS 0.6 % (0-7); HEMATOCRIT 23.8 % (36.0-48.0); HEMOGLOBIN 7.7 g/dL (12-16); IMMATURE GRANULOCYTES 0.4 % (0-5); LYMPHOCYTES 16.2 % (15-50); MCH 30.4 pg (26.0-34.0); MCHC 32.4 g/dL (31.0-37.0); MCV 94.1 fL (80.0-100.0); MEAN PLATELET VOLUME 10.8 fL (7.4-10.4); MONOCYTES 9.1 % (2-11); NEUTROPHILS 73.1 % (40-80); PLATELET COUNT 207 10x3/uL (130-400); RBC 2.53 10x6/uL (4.00-5.40); RDW 13.3 % (11.5-14.5); WBC 5.2 10x3/uL (4.8-10.8)
[2019-10-02 01:14] LABS: APTT 34.6 SECONDS (22.8-39.4); INR 1.74 (0.85-1.17); PROTIME 20.2 SECONDS (11.6-15.0)
[2019-10-02 01:15] LABS: CALC OSMOLALITY 274 mosm/kg (275-300); CALCIUM 8.2 mg/dL (8.5-10.1); CARBON DIOXIDE 28.3 mmol/L (21.0-32.0); CHLORIDE - SERUM 98 mmol/L (98-107); CREATININE - SERUM 1.5 mg/dL (0.6-1.3); GLUCOSE 157 mg/dL (74-106); POTASSIUM - SERUM 3.5 mmol/L (3.5-5.1); SODIUM 132 mmol/L (136-145); UREA NITROGEN 33 mg/dL (7-18); eGFR NON AFRICAN AMERICAN 35 mL/min (90-120)
[2019-10-02 01:30] LABS: ALBUMIN 3.3 g/dL (3.4-5.0); ALKALINE PHOSPHATASE 82 U/L (30-120); ALT (SGPT) 23 U/L (10-68); BILIRUBIN - TOTAL 0.26 mg/dL (0.2-1.3); C-REACTIVE PROTEIN 0.7 mg/dL (0.0-0.9); MAGNESIUM - SERUM 2.1 mg/dL (1.8-2.4); PRO BNP 802 pg/mL (0-450); PROTEIN - SERUM 6.3 g/dL (6.4-8.2); TROPONIN-I < 0.017 ng/mL (0.000-0.060)
--- NOTE | 2019-10-02 03:16 | NUR ---
UA taken to lab
[2019-10-02 05:13] LABS: BILIRUBIN NEGATIVE (NEGATIVE); KETONE NEGATIVE (NEGATIVE); NITRITE POSITIVE (NEGATIVE); UROBILINOGEN NORMAL (NORMAL)
[2019-10-02 05:15] LABS: BACTERIA MANY /hpf (NEGATIVE); EPITHELIAL CELLS 0-5 /hpf (0-5)
--- NOTE | 2019-10-02 05:50 | NUR ---
PT DEFECATED LRG DARK RED CLOTTED FECES. GROSSLY POSITIVE OCCULT BLOOD STOOL. EDP AND RA BARNETT NOTIFIED IMMEDIATELY. PT CLEANED OF SOILED LINEN, AND NEW LINEN PLACED. PT REPOSITIONED IN BED.
--- NOTE | 2019-10-02 06:00 | NUR ---
PATIENT COMPLAINS OF HOT FLASH AND WEAKNESS. PATIENT DIAPHORETIC AND DIZZY AFTER LARGE BM THAT GUIAC POSITIVE. DR BRAGA NOTIFIED. AND 3 UNITS PRBC TO BE GIVEN PER PRESSURE BAG. ONE GIVEN PRIOR THIS MORNING
--- NOTE | 2019-10-02 06:15 | NUR ---
ANOTHER BLOODY BOWEL MOVEMENT NOTED. THIS TIME LARGE IN AMOUNT AND VERY THIN ALMOST WATERY WITH CLOTS NOTED. EDP AT BEDSIDE DURING THIS BM.
--- NOTE | 2019-10-02 07:07 | NUR ---
REPORT GIVEN TO GORDO LE RN. BLOOD BANK TO CALL WHEN FFP IS THAWED
[2019-10-02 07:59] LABS: BASOPHILS 0.5 % (0-2); EOSINOPHILS 0 % (0-7); IMMATURE GRANULOCYTES 0.3 % (0-5); LYMPHOCYTES 19.4 % (15-50); MCH 30.3 pg (26.0-34.0); MCHC 33.7 g/dL (31.0-37.0); MEAN PLATELET VOLUME 11.7 fL (7.4-10.4); MONOCYTES 5.8 % (2-11); PLATELET COUNT 192 10x3/uL (130-400); RDW 14.2 % (11.5-14.5); WBC 5.8 10x3/uL (4.8-10.8)
[2019-10-02 08:00] LABS: HEMATOCRIT 31.2 % (36.0-48.0); HEMOGLOBIN 10.5 g/dL (12-16); MCV 89.9 fL (80.0-100.0); RBC 3.47 10x6/uL (4.00-5.40)
[2019-10-02 08:03] LABS: APTT 31.9 SECONDS (22.8-39.4); INR 1.77 (0.85-1.17); PROTIME 20.4 SECONDS (11.6-15.0)
[2019-10-02 08:24] LABS: % SATURATION 22 % (15-55); IRON 73 ug/dl (35-150); TOTAL IRON BIND CAPACITY 322 ug/dl (260-445); UNSAT IRON BIND CAPACITY 249 ug/dl (150-375)
[2019-10-02 08:44] LABS: ALBUMIN 3.1 g/dL (3.4-5.0); ALKALINE PHOSPHATASE 73 U/L (30-120); ALT (SGPT) 19 U/L (10-68); BILIRUBIN - TOTAL 0.56 mg/dL (0.2-1.3); CALC OSMOLALITY 278 mosm/kg (275-300); CALCIUM 8.2 mg/dL (8.5-10.1); CARBON DIOXIDE 24.1 mmol/L (21.0-32.0); CHLORIDE - SERUM 100 mmol/L (98-107); CKMB 0.9 U/L (0.0-3.6); CREATINE KINASE 81 UL (21-215); CREATININE - SERUM 1.5 mg/dL (0.6-1.3); GLUCOSE 195 mg/dL (74-106); LIPASE 60 U/L (73-393); MAGNESIUM - SERUM 2.1 mg/dL (1.8-2.4); PHOSPHOROUS 3.8 mg/dL (2.5-4.9); POTASSIUM - SERUM 3.7 mmol/L (3.5-5.1); PRO BNP 862 pg/mL (0-450); PROTEIN - SERUM 5.7 g/dL (6.4-8.2); SODIUM 133 mmol/L (136-145); THYROID STIMULATING HORMONE 7.78 uIU/mL (0.36-3.74); TROPONIN-I < 0.017 ng/mL (0.000-0.060); UREA NITROGEN 36 mg/dL (7-18); eGFR NON AFRICAN AMERICAN 35 mL/min (90-120)
[2019-10-02 11:34] LABS: CKMB 0.7 U/L (0.0-3.6); CREATINE KINASE 86 UL (21-215); TROPONIN-I < 0.017 ng/mL (0.000-0.060)
--- NOTE | 2019-10-02 19:00 | NUR ---
REPORT RECEIVED FROM OFF GOING NURSE. PT IS LAYING IN BED WATCHING TV AT THIS TIME. SHIFT ASSESSMENT COMPLETED, SEE FLOWSHEET FOR DETAILS. PT'S FAMILY CALLED TO RECEIVE AN UPDATE, PT REQUESTED TO TALK TO THEM AFTER UPDATE WAS GIVEN. PT SEEMED HAPPY TO GET TO SPEAK WITH FAMILY. PT REQUESTED TO BE CLEANED UP AFTER PHONE CALL. THERE WAS A SMALL BLOODY SMEAR WHEN PT WAS WIPED, OTHERWISE PADS WERE SATURATED WITH URINE. PT DENIES FURTHER NEEDS AT THIS TIME.
[2019-10-02 19:42] LABS: CKMB 0.8 U/L (0.0-3.6); CREATINE KINASE 112 UL (21-215); TROPONIN-I 0.019 ng/mL (0.000-0.060)
[2019-10-02 19:53] LABS: HEMATOCRIT 31.2 % (36.0-48.0); HEMOGLOBIN 10.6 g/dL (12-16)
--- NOTE | 2019-10-02 22:00 | NUR ---
PT REQUESTED TO BE CLEANED UP AT. A MODERATE AMOUNT OF DARK RED LOOSE BM WAS NOTED AT THIS TIME. NO FURTHER NEEDS AT THIS TIME.
[2019-10-03] VITALS (23 sets, daily range): BP systolic 125–177; BP diastolic 48–87
[2019-10-03 04:15] LABS: BASOPHILS 0.5 % (0-2); EOSINOPHILS 0.7 % (0-7); HEMATOCRIT 30.2 % (36.0-48.0); HEMOGLOBIN 9.8 g/dL (12-16); IMMATURE GRANULOCYTES 0.5 % (0-5); LYMPHOCYTES 27.7 % (15-50); MCH 28.8 pg (26.0-34.0); MCHC 32.5 g/dL (31.0-37.0); MCV 88.8 fL (80.0-100.0); MEAN PLATELET VOLUME 10.8 fL (7.4-10.4); NEUTROPHILS 59.6 % (40-80); PLATELET COUNT 163 10x3/uL (130-400); RDW 16.4 % (11.5-14.5); WBC 5.6 10x3/uL (4.8-10.8)
[2019-10-03 04:46] LABS: ANION GAP 10.7 mmol/L (8-16); BILIRUBIN - TOTAL 0.38 mg/dL (0.2-1.3); CALCIUM 7.6 mg/dL (8.5-10.1); CARBON DIOXIDE 27.8 mmol/L (21.0-32.0); CREATININE - SERUM 1.2 mg/dL (0.6-1.3); POTASSIUM - SERUM 3.5 mmol/L (3.5-5.1); PROTEIN - SERUM 5.6 g/dL (6.4-8.2)
--- NOTE | 2019-10-03 10:57 | NUR ---
Nutrition follow-up: Pt now in ICU; awake and sitting in bed Diet: Full liquids Labs reviewed Wt: 226# RDN following.
--- NOTE | 2019-10-03 17:40 | MORECARE ---
CASE MANAGEMENT DISCHARGE SUMMARY PATIENT: AVI GROVES UNIT: [id number] ADM DATE: 10/02/19 AGE: 79 : 40 SEX: F ROOM/BED: D.2306 AUTHOR: SAVANNA,DOC PHYSICIAN: REFERRING PHYSICIAN: ETHEL SALEEM MD DATE OF SERVICE: 10/03/19 Discharge Plan Patient Name: AVI GROVES Facility: [facility]:[place] : 1940 Planned Disposition: Home Anticipated Discharge Date: Discharge Date: Expected LOS: Initial Reviewer: [email or web address] Initial Review Date: 10/02/2019 Generated: 10/03/19 6:40 pm Comments DCP- Discharge Planning Updated by [email or web address]: Lubna Hyde on 10/03/19 4:[address] Patient Name: AVI GROVES Admission Status: ER Accout number: [id number] Admission Date: 10-02-2019 : 1940 Admission Diagnosis: Attending: ETHEL SALEEM Current LOS: 1 Anticipated DC Date: Planned Disposition: Primary Insurance: MEDICARE A & B Discharge Planning Comments: CM met with patient to complete initial dc planning assessment. CM educated patient on the CM role and verbal consent given by patient to complete assessment. Patient lives at home alone. Patient is independent. At discharge patient plans to return home and feels this is a safe discharge.CM discussed availability of home health, rehab services, and medical equipment. Patient states that she has care givers from home instead that comes out 3 times a week to assist in the home.Patient will have family to transport home. Patient denied known discharge needs at this time. CM will continue to follow and will assist as needed with dc plans/needs. Operating Room Rn: Lubna Hyde DCPIA - Discharge Planning Initial Assessment Updated by [email or web address]: Lubna Hyde on 10/03/19 5:31 pm * Is the patient Alert and Oriented? Yes * How many steps to enter\exit or inside your home? ramp * PCP KARLO * Pharmacy [facility] * Preadmission Environment Home Alone * ADLs Independent * Other Equipment WALKER, CANE * List name and contact numbers for known caregivers / representatives who currently or will assist patient after discharge: MUKESH Chacon [phone] * Verbal permission to speak to the caregivers and representatives has been obtained from the patient. Yes * Community resources currently utilized Private Duty Care * Please name any agencies selected above. [facility] * Additional services required to return to the preadmission environment? No * Can the patient safely return to the preadmission environment? Yes * Has this patient been hospitalized within the prior 30 days at any hospital? Yes Patient Name: AVI GROVES Page [phone] at 1740 All edits/amendments must be made on the electronic document DICTATION DATE: 10/03/191739 FIXING MACHINE OPERATOR: TRUDY 10/03/191739 RPT#: [id number] DC DATE: STATUS: ADM IN [facility] [address] [place] [address] END OF REPORT
[2019-10-04] VITALS (10 sets, daily range): BP systolic 123–176; BP diastolic 49–82
[2019-10-04 00:22] LABS: HEMATOCRIT 31.7 % (36.0-48.0); HEMOGLOBIN 10.2 g/dL (12-16)
[2019-10-04 05:06] LABS: BASOPHILS 0.8 % (0-2); EOSINOPHILS 2.7 % (0-7); HEMATOCRIT 31.4 % (36.0-48.0); HEMOGLOBIN 10.1 g/dL (12-16); IMMATURE GRANULOCYTES 0.2 % (0-5); LYMPHOCYTES 28.6 % (15-50); MCH 29.2 pg (26.0-34.0); MCHC 32.2 g/dL (31.0-37.0); MEAN PLATELET VOLUME 10.8 fL (7.4-10.4); MONOCYTES 8.6 % (2-11); NEUTROPHILS 59.1 % (40-80); PLATELET COUNT 181 10x3/uL (130-400); RBC 3.46 10x6/uL (4.00-5.40); RDW 16.3 % (11.5-14.5); WBC 4.8 10x3/uL (4.8-10.8)
[2019-10-04 05:23] LABS: MCV 90.8 fL (80.0-100.0)
[2019-10-04 05:33] LABS: ALBUMIN 3.3 g/dL (3.4-5.0); ANION GAP 10.1 mmol/L (8-16); BILIRUBIN - TOTAL 0.43 mg/dL (0.2-1.3); CALCIUM 8.3 mg/dL (8.5-10.1); CARBON DIOXIDE 27.2 mmol/L (21.0-32.0); POTASSIUM - SERUM 3.3 mmol/L (3.5-5.1); PROTEIN - SERUM 6.1 g/dL (6.4-8.2)
--- NOTE | 2019-10-04 06:58 | NUR ---
REPORT GIVEN TO JUDY. TRANSFER VIA BED
--- NOTE | 2019-10-04 07:30 | NUR ---
PT RECEIVED FROM ICU TO ROOM 2210 VIA BED. AWAKE ALERT AND ORIENTED. RESP EVEN AND UNLABORED. DENIES PAIN AT THIS TIME. SALINE LOC TO RIGHT AC, IV TO LEFT AC WITH NS @ 75ML/HR INFUSING VIA PUMP. BOTH SITES WITHOUT REDNESS OR EDEMA. DENIES FURTHER NEEDS AT THIS TIME. CL WITHIN REACH. ENCOURAGED TO CALL WITH NEEDS. CONTINUE POC
--- NOTE | 2019-10-04 14:41 | NUR ---
Rehab Note- Acute Inpatient Rehab prescreen order received. The patient has [employer] insurance and will require a PreAuth. Plans to return home per CM note and has been refusing to participate with therapy at times. Will follow at this time for possible need for inpatient acute rehab stay and begin PreAuth process at that time. Thank you for this referral! Anna Marie Frankel RN Clinical Liaison, [facility] Rehab
[2019-10-05 04:00] VITALS: BP 122/44
[2019-10-05 06:17] LABS: BASOPHILS 0.9 % (0-2); EOSINOPHILS 3.6 % (0-7); HEMATOCRIT 27.4 % (36.0-48.0); HEMOGLOBIN 8.7 g/dL (12-16); IMMATURE GRANULOCYTES 0.2 % (0-5); LYMPHOCYTES 23.1 % (15-50); MCH 29.5 pg (26.0-34.0); MCHC 31.8 g/dL (31.0-37.0); MEAN PLATELET VOLUME 10.8 fL (7.4-10.4); MONOCYTES 14.1 % (2-11); NEUTROPHILS 58.1 % (40-80); PLATELET COUNT 192 10x3/uL (130-400); RBC 2.95 10x6/uL (4.00-5.40); RDW 16.2 % (11.5-14.5); WBC 4.4 10x3/uL (4.8-10.8)
[2019-10-05 06:18] LABS: MCV 92.9 fL (80.0-100.0)
[2019-10-05 06:42] LABS: ALBUMIN 2.8 g/dL (3.4-5.0); ANION GAP 11.6 mmol/L (8-16); BILIRUBIN - TOTAL 0.51 mg/dL (0.2-1.3); CALCIUM 8.1 mg/dL (8.5-10.1); CARBON DIOXIDE 25.7 mmol/L (21.0-32.0); CREATININE - SERUM 1.3 mg/dL (0.6-1.3); POTASSIUM - SERUM 3.3 mmol/L (3.5-5.1); PROTEIN - SERUM 5.3 g/dL (6.4-8.2)
--- NOTE | 2019-10-05 07:10 | NUR ---
RECEIVED REPORT, ASSUMED CARE, BREATHING EVEN UNLABORED, BED LOWEST POSITION, A&O, CALL LIGHT IN REACH, DENIES NEEDS, IV TO BILATERAL AC'S PATENT
[2019-10-05 08:00] VITALS: BP 150/70
[2019-10-05 13:26] VITALS: BP 128/48
[2019-10-05 16:17] VITALS: BP 94/39
--- NOTE | 2019-10-05 17:14 | NUR ---
I have reviewed this patient and I concur with the Shift Assessment completed by the Licensed Practical Nurse today this shift.
[2019-10-05 20:00] VITALS: BP 148/57
[2019-10-06] VITALS: BP 122/64
--- NOTE | 2019-10-06 03:30 | NUR ---
I have reviewed this patient and I concur with the Shift Assessment completed by the Licensed Practical Nurse today this shift.
[2019-10-06 04:00] VITALS: BP 119/49
[2019-10-06 07:09] LABS: BASOPHILS 0.4 % (0-2); EOSINOPHILS 2.6 % (0-7); HEMOGLOBIN 8.3 g/dL (12-16); IMMATURE GRANULOCYTES 0.2 % (0-5); LYMPHOCYTES 16.9 % (15-50); MCH 29.7 pg (26.0-34.0); MCHC 31.9 g/dL (31.0-37.0); MCV 93.2 fL (80.0-100.0); MEAN PLATELET VOLUME 10.5 fL (7.4-10.4); MONOCYTES 9.1 % (2-11); NEUTROPHILS 70.8 % (40-80); PLATELET COUNT 188 10x3/uL (130-400); RBC 2.79 10x6/uL (4.00-5.40); WBC 5.7 10x3/uL (4.8-10.8)
[2019-10-06 07:54] LABS: ALBUMIN 2.7 g/dL (3.4-5.0); ANION GAP 12.3 mmol/L (8-16); BILIRUBIN - TOTAL 0.23 mg/dL (0.2-1.3); CALCIUM 7.8 mg/dL (8.5-10.1); CARBON DIOXIDE 23.7 mmol/L (21.0-32.0); CREATININE - SERUM 1.1 mg/dL (0.6-1.3); PROTEIN - SERUM 5.3 g/dL (6.4-8.2)
--- NOTE | 2019-10-06 08:15 | NUR ---
RECIEVED BEDSIDE REPORT. PT SITTING UP IN BED A&O X4. C/O PAIN 5/10 IN LEFT FOOT, PROVIDED PAIN MEDS PER ORDER. PIV IN LEFT AC, PATENT, NO REDNESS OR SWELLING, INFUSING NS. PIV IN RIGHT AC, PATENT, S/L, NO REDNESS OR SWELLING. GENERALIZED EDEMA IN ALL EXTREMITIES. LEFT ANKLE 1+ PITTING EDEMA. PT ABLE TO AMBULATE WITH TWO PERSON ASSIST TO BSC. EDUCATED PT ON CL AND NEEDS. BED LOW, RAILS X2. CL IN REACH. WILL CONTINUE TO MONITOR.
[2019-10-06 09:53] VITALS: BP 155/58
--- NOTE | 2019-10-06 12:15 | NUR ---
SPOKE WITH MD RN BSN, INGE, REGARDING DIURETICS FOR EDEMA IN EXTREMITIES, ALLOPURINOL FOR GOUT, AND ACTOS FOR BLOOD SUGAR. MD IS MAKING ROUNDS AND WILL ADD ORDERS AFTER ASSESSMENT.
[2019-10-06 12:45] VITALS: BP 125/47
[2019-10-06 16:37] VITALS: BP 130/53
--- NOTE | 2019-10-06 21:20 | NUR ---
RESTING QUIELTY WITH NO DISTRESS NOTED. RESP UNALBORED. IV TO RAC INTACT WITHOUT REDNESS OR EDEMA NOTED. CL IN REACH
[2019-10-06 23:03] VITALS: BP 106/68
--- NOTE | 2019-10-07 02:19 | NUR ---
I have reviewed this patient and I concur with the Shift Assessment completed by the Licensed Practical Nurse today this shift.
[2019-10-07 02:35] VITALS: BP 119/42
[2019-10-07 04:46] LABS: BASOPHILS 0.4 % (0-2); EOSINOPHILS 3.2 % (0-7); HEMATOCRIT 25.8 % (36.0-48.0); HEMOGLOBIN 8.1 g/dL (12-16); IMMATURE GRANULOCYTES 0.2 % (0-5); LYMPHOCYTES 18.2 % (15-50); MCH 29.1 pg (26.0-34.0); MCHC 31.4 g/dL (31.0-37.0); MCV 92.8 fL (80.0-100.0); MEAN PLATELET VOLUME 10.4 fL (7.4-10.4); MONOCYTES 11.6 % (2-11); NEUTROPHILS 66.4 % (40-80); PLATELET COUNT 202 10x3/uL (130-400); RBC 2.78 10x6/uL (4.00-5.40); RDW 16.2 % (11.5-14.5); WBC 5.7 10x3/uL (4.8-10.8)
[2019-10-07 05:03] LABS: ALBUMIN 2.5 g/dL (3.4-5.0); BILIRUBIN - TOTAL 0.44 mg/dL (0.2-1.3); CALCIUM 7.9 mg/dL (8.5-10.1); CARBON DIOXIDE 26.9 mmol/L (21.0-32.0); CREATININE - SERUM 0.9 mg/dL (0.6-1.3); POTASSIUM - SERUM 3.9 mmol/L (3.5-5.1); PROTEIN - SERUM 5.3 g/dL (6.4-8.2)
[2019-10-07 07:13] VITALS: BP 113/44
--- NOTE | 2019-10-07 08:00 | NUR ---
RECIEVED BEDSIDE REPORT. PT SITTING UP IN BED, A&O X4. C/O PAIN 09/15, PROVIDED MEDS PER ORDER. PIV IN R AC, PATENT AND INFUSING, NO REDNESS OR SWELLING. GENERALIZED EDEMA IN ALL EXTREMITIES, WEAKNESS AND STIFFNESS IN LLE. EDUCATED PT ON CL AND NEEDS, VERBALIZED UNDERSTANDING. BED LOW, RAILS X2. CL IN REACH. WILL CONTINUE TO MONITOR.
[2019-10-07 09:31] VITALS: BP 147/69
--- NOTE | 2019-10-07 10:15 | NUR ---
ASSISTED ONTO BED BLACKMAN, 100ML OUTPUT, PT TOLERATED WELL.
[2019-10-07 12:34] VITALS: BP 113/55
--- NOTE | 2019-10-07 14:45 | NUR ---
REMOVED PIV FROM L AC, CATHETER INTACT, NO REDNESS OR SWELLING, PT TOLERATED WELL.
[2019-10-07 17:59] VITALS: BP 149/61
[2019-10-07 20:00] VITALS: BP 152/61
--- NOTE | 2019-10-07 20:00 | NUR ---
A&0 X 4, SUPINE IN BED. REPORTS PAIN OF 5/10 TO LLE, REPORTS GOUT PAIN. SELF-PERFORMING ORAL CARE, CPOC.
[2019-10-08 04:00] VITALS: BP 118/56
[2019-10-08 06:55] LABS: BASOPHILS 0.4 % (0-2); EOSINOPHILS 2.3 % (0-7); HEMATOCRIT 23.5 % (36.0-48.0); IMMATURE GRANULOCYTES 0.2 % (0-5); LYMPHOCYTES 19.5 % (15-50); MCH 29.4 pg (26.0-34.0); MCHC 31.5 g/dL (31.0-37.0); MCV 93.3 fL (80.0-100.0); MEAN PLATELET VOLUME 10.3 fL (7.4-10.4); MONOCYTES 14.6 % (2-11); PLATELET COUNT 195 10x3/uL (130-400); RBC 2.52 10x6/uL (4.00-5.40); RDW 16.2 % (11.5-14.5); WBC 4.7 10x3/uL (4.8-10.8)
[2019-10-08 07:14] LABS: HEMOGLOBIN 7.4 g/dL (12-16)
--- NOTE | 2019-10-08 07:34 | NUR ---
yair ramos log buyer paged, informed to wait until next log buyer or rounding dr arrives to address.
[2019-10-08 07:37] LABS: ALBUMIN 2.4 g/dL (3.4-5.0); ANION GAP 10.2 mmol/L (8-16); BILIRUBIN - TOTAL 0.39 mg/dL (0.2-1.3); CALCIUM 7.8 mg/dL (8.5-10.1); CARBON DIOXIDE 25.6 mmol/L (21.0-32.0); POTASSIUM - SERUM 3.8 mmol/L (3.5-5.1); PROTEIN - SERUM 5.3 g/dL (6.4-8.2)
[2019-10-08 07:39] LABS: CREATININE - SERUM 1.2 mg/dL (0.6-1.3)
[2019-10-08 08:25] VITALS: BP 128/61
[2019-10-08 12:22] VITALS: BP 102/47
--- NOTE | 2019-10-08 15:02 | NUR ---
Nutrition follow-up: Pt receiving a consistent CHO diet with po intake 75% average at meals Labs reviewed; glucose under fair control Wt: 266# +BM Pt reports good appetite Will continue to provide food choices and honor food preferences. RDN following.
--- NOTE | 2019-10-08 15:14 | NUR ---
PATIENT IS RESTING WITHOUT DISTRESS. CALL LIGHT IN REACH
--- NOTE | 2019-10-08 15:19 | NUR ---
OT NOTE: LESS PAIN REPORTED IN L FOOT TODAY. PT WAS ABLE TO MOVE L LE WITH MIN ASSIST; BED MOB WITH MOD ASSIST FOR SUPINE TO SIT; SIT TO STAND WITH WALKER AND MOD ASSIST; ABLE TO TAKE A FEW SIDE STEPS AND STEPS TO BED WITH ASSIST FOR WALKER MGMT AND MOD ASSIST. PT CONT TO REPORT PAIN IN L FOOT, HOWEVER, MUCH BETTER THAN YESTERDAY, DUE TO INABILITY TO TOLERATE ANYTHING TOUCHING HER FOOT. ABLE TO WASH FACE, HANDS, AND UPPER BODY WITH WASH CLOTH; DONNED GOWN WITH SET UP; MAX ASSIST TO TIA/DOFF SOCKS. TOLERATED SITTING UP IN CHAIR FOR GREATER THAN 3 HRSS TODAY EVERETT HOWE, OTR/L [phone]
--- NOTE | 2019-10-08 17:08 | NUR ---
OT NOTE: PT COMPLETED LB HYGIENE TASKS WITH MAX A. PT COMPLETED BED MOBILITY TASKS WITH MIN/MOD A. PT COMPLETED SIT TO STAND WITH MIN /MOD A. [phone] THANK YOU,EUGENE JACOB
[2019-10-08 20:00] VITALS: BP 139/66
--- NOTE | 2019-10-08 20:40 | NUR ---
1900) REC;D CHGE OF SHIFT WALKING ROUNDS.IN BED AAO X3. UNIT PRBC;S CONTINUES TO INFUSE WITH NO SIGNS OR SYMPTOMS OF TRANSFUSION REACTION. WILL CONTINUE TO MONITOR FOR ANY CHGES AND FOLLOW CURRENT PLAN OF CARE.
[2019-10-09] VITALS: BP 149/55
[2019-10-09 04:00] VITALS: BP 109/74
[2019-10-09 05:26] LABS: BASOPHILS 0.5 % (0-2); EOSINOPHILS 5.5 % (0-7); HEMATOCRIT 26.5 % (36.0-48.0); HEMOGLOBIN 8.4 g/dL (12-16); IMMATURE GRANULOCYTES 0.3 % (0-5); LYMPHOCYTES 24.6 % (15-50); MCH 29.4 pg (26.0-34.0); MCHC 31.7 g/dL (31.0-37.0); MCV 92.7 fL (80.0-100.0); MEAN PLATELET VOLUME 10.5 fL (7.4-10.4); MONOCYTES 12.3 % (2-11); NEUTROPHILS 56.8 % (40-80); PLATELET COUNT 227 10x3/uL (130-400); RBC 2.86 10x6/uL (4.00-5.40); RDW 16.3 % (11.5-14.5)
[2019-10-09 05:55] LABS: ALBUMIN 2.4 g/dL (3.4-5.0); ANION GAP 11.8 mmol/L (8-16); BILIRUBIN - TOTAL 0.42 mg/dL (0.2-1.3); CALCIUM 7.9 mg/dL (8.5-10.1); CARBON DIOXIDE 25.2 mmol/L (21.0-32.0); CREATININE - SERUM 1.2 mg/dL (0.6-1.3); PROTEIN - SERUM 5.5 g/dL (6.4-8.2)
--- NOTE | 2019-10-09 06:40 | NUR ---
I have reviewed this patient and I concur with the Shift Assessment completed by the Licensed Practical Nurse today this shift.
[2019-10-09 09:58] VITALS: BP 150/72
[2019-10-09 12:47] VITALS: BP 108/48
--- NOTE | 2019-10-09 13:27 | NUR ---
OT NOTE: BED MOB WITH MIN ASSIST; EOB SITTING WITH SBA; SIT TO STAND WITH WALKER AND MIN ASSIST; ABLE TO TAKE A FEW STEPS FROM BED TO CHAIR WITH MIN ASSIST. ABLE TO PERFORM SIMPLE GROOMING TASKS WITH SET UP; EDUCATION ON EXS TO PERFORM WHILE SITTING UP IN CHAIR. EVERETT HOWE, OTR/L [phone]
--- NOTE | 2019-10-09 13:58 | NUR ---
OT NOTE: PT COMPLETED SIT TO STAND WITH MOD A. PT COMPLETED STANDING BALANCE WITH CGA/MIN A. PT COMPLETED UE AROM EXS. [phone] THANK YOU,EUGENE JACOB
--- NOTE | 2019-10-09 14:03 | NUR ---
Rehab Prescreening Consult recieved and the chart has been reviewed. She is [employer] managed MCR and will require a preauth. She has a PT eval, but will also need an OT eval for their review. Damaris Garcia RN Clinical Liaison, Rehab
[2019-10-09 18:06] VITALS: BP 116/54
[2019-10-09 20:00] VITALS: BP 139/49
[2019-10-10] VITALS: BP 159/54
[2019-10-10 04:00] VITALS: BP 110/62
[2019-10-10 06:36] LABS: HEMATOCRIT 26.8 % (36.0-48.0); HEMOGLOBIN 8.6 g/dL (12-16); LYMPHOCYTES 18.6 % (15-50); MCHC 32.1 g/dL (31.0-37.0); MCV 93.4 fL (80.0-100.0); MEAN PLATELET VOLUME 10.3 fL (7.4-10.4); NEUTROPHILS 70.6 % (40-80); PLATELET COUNT 262 10x3/uL (130-400); RBC 2.87 10x6/uL (4.00-5.40); RDW 15.9 % (11.5-14.5); WBC 4.7 10x3/uL (4.8-10.8)
[2019-10-10 06:46] LABS: ALBUMIN 2.4 g/dL (3.4-5.0); ANION GAP 14.9 mmol/L (8-16); BILIRUBIN - TOTAL 0.45 mg/dL (0.2-1.3); CALCIUM 8.2 mg/dL (8.5-10.1); CARBON DIOXIDE 24.1 mmol/L (21.0-32.0); CREATININE - SERUM 1.1 mg/dL (0.6-1.3); PROTEIN - SERUM 5.6 g/dL (6.4-8.2)
--- NOTE | 2019-10-10 08:00 | NUR ---
PATIENT IN BED WITH IV INTACT. NO COMPLAINTS OR SIGNS OF DISTRESS. PURE WICK INTACT. CALL LIGHT WITHIN REACH.
[2019-10-10 09:00] VITALS: BP 119/48
--- NOTE | 2019-10-10 10:12 | NUR ---
OT NOTE: PT DOING BETTER TODAY. PERFORMED BED MOB WITH SBA; ROLLING IN BED FROM SIDE TO SIDE WITH MIN ASSIST; SUPINE TO SIT WITH SBA; PT PERFORMED IN ROOM AMBULATION WITH WALKER AND MIN ASSIST X APPROX 8-10 FT; FUNCTIONAL TRANSFERS WITH WALKER AND MIN ASSIST. PT REMAINS VERY WEAK AND WILL REQUIRE IP REHAB PRIOR TO RETURN HOME TO HER PLOF. PERFORMED GROOMING AND UPPER BODY BATHING WITH SET UP; MOD ASSIST WITH LES. MOD ASSIST WITH TOILETING. EVERETT HOWE, OTR/L [phone]
[2019-10-10 13:13] VITALS: BP 137/53
--- NOTE | 2019-10-10 15:59 | NUR ---
Rehab Note- PreAUth initiated & faxed in. Will fax OT Eval when avaliable. Thank you for this referral! Anna Marie Frankel RN Clinical Liaison, [facility] Rehab
[2019-10-10 17:17] VITALS: BP 117/54
--- NOTE | 2019-10-10 18:45 | NUR ---
PATIENT IN BED WITH IV INTACT. NOC OMPLAINTS OR SIGNS OF DISTRESS. SITTING UP IN BED WITH CALL LIGHT WITHIN REACH.
[2019-10-10 20:00] VITALS: BP 159/60
--- NOTE | 2019-10-10 20:00 | NUR ---
ALERT RESTING IN BED, DENIES PAIN OR NEEDS AT THIS TIME, SEE SHIFT ASSESSMENT, CALL LIGHT IN REACH
[2019-10-11] VITALS: BP 136/59
[2019-10-11 04:00] VITALS: BP 133/56
[2019-10-11 05:06] LABS: BASOPHILS 0.9 % (0-2); EOSINOPHILS 2.8 % (0-7); HEMOGLOBIN 8.2 g/dL (12-16); IMMATURE GRANULOCYTES 0.2 % (0-5); LYMPHOCYTES 19.7 % (15-50); MCH 29.2 pg (26.0-34.0); MCHC 31.5 g/dL (31.0-37.0); MCV 92.5 fL (80.0-100.0); MEAN PLATELET VOLUME 9.9 fL (7.4-10.4); MONOCYTES 14.8 % (2-11); NEUTROPHILS 61.6 % (40-80); PLATELET COUNT 275 10x3/uL (130-400); RBC 2.81 10x6/uL (4.00-5.40); RDW 15.7 % (11.5-14.5); WBC 4.7 10x3/uL (4.8-10.8)
[2019-10-11 05:08] LABS: ALBUMIN 2.4 g/dL (3.4-5.0); ANION GAP 11.7 mmol/L (8-16); BILIRUBIN - TOTAL 0.53 mg/dL (0.2-1.3); CALCIUM 7.9 mg/dL (8.5-10.1); CARBON DIOXIDE 24.1 mmol/L (21.0-32.0); CREATININE - SERUM 1.2 mg/dL (0.6-1.3); POTASSIUM - SERUM 3.8 mmol/L (3.5-5.1); PROTEIN - SERUM 5.6 g/dL (6.4-8.2)
[2019-10-11 09:45] VITALS: BP 139/61
[2019-10-11 12:54] VITALS: BP 123/52
--- NOTE | 2019-10-11 15:21 | MORECARE ---
CASE MANAGEMENT DISCHARGE SUMMARY PATIENT: AVI GROVES UNIT: [id number] ADM DATE: 10/02/19 AGE: 79 : 40 SEX: F ROOM/BED: D.2210 AUTHOR: SAVANNA,DOC PHYSICIAN: REFERRING PHYSICIAN: ETHEL SALEEM MD DATE OF SERVICE: 10/11/19 Discharge Plan Patient Name: AVI GROVES Facility: [facility]:[place] : 1940 Planned Disposition: Home Anticipated Discharge Date: Discharge Date: Expected LOS: Initial Reviewer: [email or web address] Initial Review Date: 10/02/2019 Generated: 10/11/19 4:21 pm Comments DCP- Discharge Planning Updated by [email or web address]: Kassandra Collado on 10/11/19 2:[address] received a call from [facility] [employer], they have denied inpatient rehab. a P2P can be done by Monday09/17/19 @ 1645 Opt 4 DCP- Discharge Planning Updated by [email or web address]: Lubna Hyde on 10/03/19 4:[address] Patient Name: AVI GROVES Admission Status: ER Accout number: [id number] Admission Date: 10-02-2019 : 1940 Admission Diagnosis: Attending: ETHEL SALEEM Current LOS: 1 Anticipated DC Date: Planned Disposition: Primary Insurance: MEDICARE A & B Discharge Planning Comments: CM met with patient to complete initial dc planning assessment. CM educated patient on the CM role and verbal consent given by patient to complete assessment. Patient lives at home alone. Patient is independent. At discharge patient plans to return home and feels this is a safe discharge.CM discussed availability of home health, rehab services, and medical equipment. Patient states that she has care givers from home instead that comes out 3 times a week to assist in the home.Patient will have family to transport home. Patient denied known discharge needs at this time. CM will continue to follow and will assist as needed with dc plans/needs. Group Burner Machine: Lubna Hyde DCPIA - Discharge Planning Initial Assessment Updated by [id number]: Lubna Hyde on 10/03/19 5:31 pm * Is the patient Alert and Oriented? Yes * How many steps to enter\exit or inside your home? ramp * PCP KARLO * Pharmacy [facility] * Preadmission Environment Home Alone * ADLs Independent * Other Equipment WALKER, CANE * List name and contact numbers for known caregivers / representatives who currently or will assist patient after discharge: MUKESH HERRON - GD - [phone] * Verbal permission to speak to the caregivers and representatives has been obtained from the patient. Yes * Community resources currently utilized Private Duty Care * Please name any agencies selected above. [facility] * Additional services required to return to the preadmission environment? No * Can the patient safely return to the preadmission environment? Yes * Has this patient been hospitalized within the prior 30 days at any hospital? Yes Last DP export: 10/03/19 4:40 p Patient Name: AVI GROVES Page [id number] at 1521 All edits/amendments must be made on the electronic document DICTATION DATE: 10/11/19 1521 DIRECTOR OF RESPIRATORY THERAPY: TRUDY 10/11/19 1521 RPT#: [id number] DC DATE: STATUS: ADM IN [facility] [address] [place] [address] END OF REPORT
[2019-10-11 17:35] VITALS: BP 128/59
--- NOTE | 2019-10-11 21:00 | NUR ---
A&0 X 4. SUPINE IN BED, REPORTS SORENESS TO NECK AND BACK, /10. ENCOURAGED TO CHANGE POSITIONS FREQUENTLY. CTM.
[2019-10-11 22:04] VITALS: BP 119/69
[2019-10-12 03:09] VITALS: BP 148/58
--- NOTE | 2019-10-12 03:54 | NUR ---
I have reviewed this patient and I concur with the Shift Assessment completed by the Licensed Practical Nurse today this shift.
[2019-10-12 04:00] VITALS: BP 130/56
--- NOTE | 2019-10-12 09:08 | NUR ---
PT ALERT AND ORIENTED X4 UPON ENTERING, EATING BREAKFAST. ASSISTED PT TO THE BED SIDE COMMODE AND BACK TO BED, SITUATED COMFORTABLY. ADMINISTERED ALL MEDICAITON, NO DIFFICULTIES. HUNG IV ABX, TOLERATING WELL. PT RESTING IN BED. DENIES ANY NEEDS. BED IN LOWEST POSITION, BED RAILS X2, CALL LIGHT WITHIN REACH. WILL CONTINUE TO MONITOR. ASSESSMENT PERFORMED AT THIS TIME. RIGHT AC IV.
[2019-10-12 09:13] LABS: BASOPHILS 0.7 % (0-2); EOSINOPHILS 2.8 % (0-7); HEMATOCRIT 28.5 % (36.0-48.0); HEMOGLOBIN 8.9 g/dL (12-16); IMMATURE GRANULOCYTES 0.2 % (0-5); LYMPHOCYTES 18.2 % (15-50); MCHC 31.2 g/dL (31.0-37.0); MCV 92.8 fL (80.0-100.0); MEAN PLATELET VOLUME 9.8 fL (7.4-10.4); MONOCYTES 14.2 % (2-11); NEUTROPHILS 63.9 % (40-80); PLATELET COUNT 282 10x3/uL (130-400); RBC 3.07 10x6/uL (4.00-5.40); RDW 15.6 % (11.5-14.5); WBC 4.2 10x3/uL (4.8-10.8)
[2019-10-12 09:28] LABS: ALBUMIN 2.5 g/dL (3.4-5.0); ANION GAP 12.4 mmol/L (8-16); BILIRUBIN - TOTAL 0.54 mg/dL (0.2-1.3); CALCIUM 8.1 mg/dL (8.5-10.1); CARBON DIOXIDE 26.4 mmol/L (21.0-32.0); POTASSIUM - SERUM 3.8 mmol/L (3.5-5.1); PROTEIN - SERUM 5.5 g/dL (6.4-8.2)
[2019-10-12 10:26] VITALS: BP 155/55
--- NOTE | 2019-10-12 12:15 | NUR ---
ADMINISTERED MEDICATION AND 4 UNITS INSULIN PER SLIDING SCALE FOR SUGAR OF 235. ASSISTED PT BACK TO BED. LISTENED TO LUNGS PER REQUEST, CTA ON BOTH SIDES. DENIES ANY OTHER NEEDS. WILL CONTINUE TO MONITOR.
--- NOTE | 2019-10-12 13:10 | NUR ---
I have reviewed this patient and I concur with the Shift Assessment completed by the Licensed Practical Nurse today this shift.
[2019-10-12 14:48] VITALS: BP 136/58
--- NOTE | 2019-10-12 14:55 | NUR ---
ADMINISTERED MEDICATION, NO DIFFICULTIES. RESTING COMFORTABLY. DENIES ANY NEEDS. WILL CONTINUE TO MONITOR.
--- NOTE | 2019-10-12 22:11 | NUR ---
OT NOTE: PT COMPLETED SUPINE TO SIT WITH MOD A. PT COMPLETED SIT TO STAND WITH MOD A. PT COMPLETED ADL MOB WITH MIN A.PT COMPLETED FACEHYGIENE WITH SETUP AT EOB. [phone] THANK YOU,EUGENE JACOB
[2019-10-12 22:21] VITALS: BP 153/68
[2019-10-13] VITALS (8 sets, daily range): BP systolic 128–170; BP diastolic 49–86
--- NOTE | 2019-10-13 02:31 | NUR ---
I have reviewed this patient and I concur with the Shift Assessment completed by the Licensed Practical Nurse today this shift.
[2019-10-13 07:50] LABS: BASOPHILS 0.6 % (0-2); EOSINOPHILS 3.9 % (0-7); HEMATOCRIT 27.5 % (36.0-48.0); HEMOGLOBIN 8.4 g/dL (12-16); LYMPHOCYTES 19.2 % (15-50); MCH 28.7 pg (26.0-34.0); MCHC 30.5 g/dL (31.0-37.0); MCV 93.9 fL (80.0-100.0); MEAN PLATELET VOLUME 9.9 fL (7.4-10.4); MONOCYTES 12.4 % (2-11); NEUTROPHILS 63.9 % (40-80); PLATELET COUNT 276 10x3/uL (130-400); RBC 2.93 10x6/uL (4.00-5.40); RDW 15.7 % (11.5-14.5); WBC 3.6 10x3/uL (4.8-10.8)
[2019-10-13 08:42] LABS: ALBUMIN 2.3 g/dL (3.4-5.0); ANION GAP 10.5 mmol/L (8-16); BILIRUBIN - TOTAL 0.37 mg/dL (0.2-1.3); CALCIUM 8.1 mg/dL (8.5-10.1); CARBON DIOXIDE 28.3 mmol/L (21.0-32.0); POTASSIUM - SERUM 3.8 mmol/L (3.5-5.1); PROTEIN - SERUM 5.2 g/dL (6.4-8.2)
--- NOTE | 2019-10-13 11:43 | NUR ---
PT UP WALKING WITH P.T. IN HALLWAY WITH WALKER.
--- NOTE | 2019-10-13 12:00 | NUR ---
PURE WICK CHANGED.
--- NOTE | 2019-10-13 12:44 | NUR ---
SPOKE WITH [employer]DS MAINTENANCE WORKER THAT MARK MORA STATES TO ME THAT PT IS TO BE TRANSFERRED TO PT'S CHOICE [facility] FOR HIGHER LEVEL OF CARE FOR GI. SINCE DR. MORALES IS UNAVAILABLE. SHE VERBALIZED UNDERSTANDING AND STATES SHE WILL START WORKING ON IT.
--- NOTE | 2019-10-13 13:07 | NUR ---
[facility] HAS NO GI COVERAGE. CASE AMANGEMENT NOTIFIED MARK MORA.
--- NOTE | 2019-10-13 13:15 | NUR ---
MARK MORA STATES TO ME SHE ONLY WANTS PT TO RECEIVE 1 UNIT PRBC. CALLED BLOOD BANK AND STATED THIS TO THEM AND THEY VERBALIZED UNDERSTANDING.
--- NOTE | 2019-10-13 18:17 | NUR ---
blood consent on chart. pt teaching done on of s/s to report of prbc reaction. pt verbalized understanidng. right ac 20g iv flushed with 10cc of ns and has great blood return. vs stable. simona bravo spiked blood bag. prbc infusing at 100ml/hr through right ac 20g iv. will stay with pt for first 15 min.
--- NOTE | 2019-10-13 18:32 | NUR ---
PT SHOWS NO S/S OF PRBC REACTION. VS STABLE. INCREASED INFUSION RATE TO 125ML/HR THROUGH RIGHT AC 20G IV. WILL CONTINUE TO MONITOR. PT STATES SHE HAS NO FURTHER NEEDS AT THIS TIME. BED LOW. CL IN REACH.
--- NOTE | 2019-10-13 20:31 | NUR ---
PATIENT RESTING IN BED WITH NO S/S OF DISTRESS. EMPTIED URINE CANISTER, 850ML. PARTIAL LINEN CHANGE. ADMINISTERED MEDS PER ORDERS. PATIENT TOOK MEDS WITHOUT DIFFICULTY. PATIENT DENIES OTHER NEEDS AT THIS TIME. BED IN LOWEST POSITION AND CALL LIGHT WITHIN REACH. ENCOURAGED THE PATIENT TO CALL IF SHE HAS NEEDS. WILL CONTINUE TO MONITOR.
[2019-10-14 03:24] VITALS: BP 163/77
[2019-10-14 05:38] LABS: BASOPHILS 0.8 % (0-2); EOSINOPHILS 5.1 % (0-7); HEMATOCRIT 29.3 % (36.0-48.0); HEMOGLOBIN 9.3 g/dL (12-16); MCH 28.7 pg (26.0-34.0); MCHC 31.7 g/dL (31.0-37.0); MONOCYTES 12.4 % (2-11); NEUTROPHILS 59.7 % (40-80); PLATELET COUNT 291 10x3/uL (130-400); RBC 3.24 10x6/uL (4.00-5.40); RDW 15.9 % (11.5-14.5); WBC 3.6 10x3/uL (4.8-10.8)
[2019-10-14 06:00] LABS: ALBUMIN 2.2 g/dL (3.4-5.0); ANION GAP 11.3 mmol/L (8-16); BILIRUBIN - TOTAL 0.47 mg/dL (0.2-1.3); CALCIUM 8.1 mg/dL (8.5-10.1); CREATININE - SERUM 1.1 mg/dL (0.6-1.3); POTASSIUM - SERUM 3.3 mmol/L (3.5-5.1); PROTEIN - SERUM 5.5 g/dL (6.4-8.2)
[2019-10-14 06:25] LABS: MCV 90.4 fL (80.0-100.0)
[2019-10-14 06:40] VITALS: BP 136/60
--- NOTE | 2019-10-14 06:55 | NUR ---
RECEIVED PATIENT FROM KELLIE INFANTE. A&O RESTING IN BED WITH EYES OPEN. NO C/O PAIN. NO S/S OF ACUTE DISTRESS NOTED. CALL LIGHT IN REACH. WILL CONTINUE TO MONITOR.
[2019-10-14 09:22] VITALS: BP 146/59
[2019-10-14 13:05] VITALS: BP 138/55
--- NOTE | 2019-10-14 14:06 | NUR ---
OT NOTE: PT STILL SITTING UP IN CHAIR. FINISHED HER LUNCH.. STATES THAT SHE DOES NOT WANT TO GO BACK TO BED AND THAT SHE FEELS MUCH BETTER TODAY. PT WAS SEEN AMBULATING WITH P.T. EARLIER AND SHE WAS DOING MUCH BETTER. STATES THAT SHE WAS ABLE TO AMB TO BATHROOM EARLIER AND PERFORMED TOILET HYGIENE WITHOUT ASSIST. PTS STRENGTH, ENDURANCE, ADLS, AND MOBILITY ARE ALL IMPROVING..WILL CONT WITH CURRENT PLAN OF TMT UNTIL DC. EVERETT HOWE, OTR/L
--- NOTE | 2019-10-14 14:54 | NUR ---
I have reviewed this patient and I concur with the Shift Assessment completed by the Licensed Practical Nurse today this shift.
[2019-10-14 17:54] VITALS: BP 106/70
--- NOTE | 2019-10-14 18:25 | NUR ---
A&O RESTING IN BED WITH EYES OPEN. NO C/O PAIN. NO S/S OF ACUTE DISTRESS NOTED. DENIES ANY NEEDS AT THIS TIME. CALL LIGHT IN REACH. WILL CONTINUE TO MONITOR.
--- NOTE | 2019-10-14 18:47 | NUR ---
OT NOTE: PT COMPLETED SIT TO STAND WITH MIN A. PT COMPLETED ADL MOB WITH CGA . PT COMPLETED LB DRESSING TECHNIQUES WITH MIN A. [phone] THANK YOU,EUGENE JACOB
--- NOTE | 2019-10-14 19:31 | NUR ---
PATIENT RESTING IN BED AND DENIES NEEDS AT THIS TIME. BED IN LOWEST POSITION AND CALL LIGHT WITHIN REACH. ENCOURAGED THE PATIENT TO CALL IF SHE HAS NEEDS. WILL CONTINUE TO MONITOR.
[2019-10-14 20:00] VITALS: BP 156/57
[2019-10-15] VITALS: BP 142/60
[2019-10-15 04:00] VITALS: BP 109/47
[2019-10-15 06:42] LABS: BASOPHILS 0.6 % (0-2); EOSINOPHILS 5.6 % (0-7); HEMATOCRIT 29.7 % (36.0-48.0); HEMOGLOBIN 9.3 g/dL (12-16); LYMPHOCYTES 34.1 % (15-50); MCH 28.6 pg (26.0-34.0); MCHC 31.3 g/dL (31.0-37.0); MCV 91.4 fL (80.0-100.0); MEAN PLATELET VOLUME 9.8 fL (7.4-10.4); NEUTROPHILS 46.7 % (40-80); PLATELET COUNT 313 10x3/uL (130-400); RBC 3.25 10x6/uL (4.00-5.40); RDW 15.7 % (11.5-14.5); WBC 3.2 10x3/uL (4.8-10.8)
[2019-10-15 06:58] LABS: ALBUMIN 2.3 g/dL (3.4-5.0); ANION GAP 10.6 mmol/L (8-16); BILIRUBIN - TOTAL 0.3 mg/dL (0.2-1.3); CALCIUM 7.8 mg/dL (8.5-10.1); CARBON DIOXIDE 32.1 mmol/L (21.0-32.0); CREATININE - SERUM 1.3 mg/dL (0.6-1.3); POTASSIUM - SERUM 3.7 mmol/L (3.5-5.1); PROTEIN - SERUM 5.1 g/dL (6.4-8.2)
[2019-10-15 08:55] VITALS: BP 162/72
--- NOTE | 2019-10-15 13:00 | NUR ---
OT NOTE: PT PERFORMED WELL TODAY. SIT TO STAND WITH WALKER AND CGA; IN ROOM AMBULATION WITH CGA AND RW; FUNCTIONAL TRANSFERS WITH CGA. GROOMING AND UE DRESSING TASKS WITH SET UP..PT DOES REQUIRE SOME ASSIST WITH DONNING SOCKS AND BRIEF. STRENGTH AND ENDURANCE IS MUCH IMPROVED. SHE WAS ABLE TO AMB 250 FT WITH WALKER AND CGA WITHOUT REST BREAK. REPORTS THAT PAIN IN L FOOT IS VERY MILD BUT STILL NOTICES THE EDEMA. PT HOPEFUL TO GO HOME TODAY. EVERETT HOWE, OTR/L [phone]
[2019-10-15 13:19] VITALS: BP 153/66
--- NOTE | 2019-10-15 13:57 | MORECARE ---
CASE MANAGEMENT DISCHARGE SUMMARY PATIENT: AVI GROVES UNIT: [id number] ADM DATE: 10/02/19 AGE: 79 : 40 SEX: F ROOM/BED: D.2210 AUTHOR: SAVANNA,DOC PHYSICIAN: REFERRING PHYSICIAN: ETHEL SALEEM MD DATE OF SERVICE: 10/15/19 Discharge Plan Patient Name: AVI GROVES Facility: [facility]:[place] : 1940 Planned Disposition: Home Anticipated Discharge Date: Discharge Date: Expected LOS: Initial Reviewer: [email or web address] Initial Review Date: 10/02/2019 Generated: 10/15/19 2:57 pm Comments DCP- Discharge Planning Updated by [id number]: Kassandra Collado on 10/15/19 12:[address] Patient will be discharging home today. Her granddaughter will be her bus driver home. she has home instead that comes 3 days a week. she did not think that she needed anything else. she stated that dr Velasquez was sending out a nurse. [facility] will be coming out to her home. 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 a P2P can be done by Monday09/17/19 @ 1645 Opt 4 DCP- Discharge Planning Updated by [id number]: Lubna Hyde on 10/03/19 4:[address] Patient Name: AVI GROVES Admission Status: ER Accout number: [id number] Admission Date: 10-02-2019 : 1940 Admission Diagnosis: Attending: ETHEL SALEEM Current LOS: 1 Anticipated DC Date: Planned Disposition: Primary Insurance: MEDICARE A & B Discharge Planning Comments: CM met with patient to complete initial dc planning assessment. CM educated patient on the CM role and verbal consent given by patient to complete assessment. Patient lives at home alone. Patient is independent. At discharge patient plans to return home and feels this is a safe discharge.CM discussed availability of home health, rehab services, and medical equipment. Patient states that she has care givers from home instead that comes out 3 times a week to assist in the home.Patient will have family to transport home. Patient denied known discharge needs at this time. CM will continue to follow and will assist as needed with dc plans/needs. Drawing Press Operator: Lubna Mary Ellen DCPIA - Discharge Planning Initial Assessment Updated by [email or web address]: Lubna Hyde on 10/03/19 5:31 pm * Is the patient Alert and Oriented? Yes * How many steps to enter\exit or inside your home? ramp * PCP KARLO * Pharmacy [facility] * Preadmission Environment Home Alone * ADLs Independent * Other Equipment WALKER, CANE * List name and contact numbers for known caregivers / representatives who currently or will assist patient after discharge: MUKESH HERRON - GD - [phone] * Verbal permission to speak to the caregivers and representatives has been obtained from the patient. Yes * Community resources currently utilized Private Duty Care * Please name any agencies selected above. [facility] * Additional services required to return to the preadmission environment? No * Can the patient safely return to the preadmission environment? Yes * Has this patient been hospitalized within the prior 30 days at any hospital? Yes Coverage Notice Reviewer: [email or web address] Ines Collado Notice Issued Date-Time: 10/15/2019 13:45 Notice Type: IM Discharge Notice Notice Delivered To: Patient Relationship to Patient: Histologist Technologist Name: Delivery Method: HAND - Hand Delivered Sharlene Days: Prior Verbal Notification: Recipient Understood Notice: Yes Recipient Signature: Yes Med Rec Note Co-signed by Attending: Coverage Notice Comment: Last DP export: 10/11/19 2:21 pm Patient Name: AVI GROVES Page [phone] at 1357 All edits/amendments must be made on the electronic document DICTATION DATE: 10/15/19 1357 NCA CERTIFIED CONCIERGE: TRUDY 10/15/19 1357 RPT#: [id number] DC DATE: STATUS: ADM IN [facility] [address] [place] [address] END OF REPORT
--- NOTE | 2019-10-15 15:01 | NUR ---
SALINE LOCK TAKEN OUT, DISCHARGE PAPERS DISCUSSED WITH PATIENT. DRESSED AND TO WAITING CAR TO DISCHARGE HOME WITH CORRIE.
--- NOTE | 2019-10-15 15:34 | NUR ---
OT NOTE: PT COMPLETED SIT TO STAND WITH CGA. PT COMPLETED SITTING BALANCE WITH SBA. PT COMPLETED ADL MOB WITH CGA. PT COMPLETED UE AROM WITH FUNCTIONAL WALKER USE. THANK YOU,EUGENE JACOB
--- NOTE | 2019-10-15 16:00 | MORECARE ---
CASE MANAGEMENT DISCHARGE SUMMARY PATIENT: AVI GROVES UNIT: [id number] ADM DATE: 10/02/19 AGE: 79 : 40 SEX: F ROOM/BED: D.2210 AUTHOR: SAVANNA,DOC PHYSICIAN: REFERRING PHYSICIAN: ETHEL SALEEM MD DATE OF SERVICE: 10/15/19 Discharge Plan Patient Name: AVI GROVES Facility: [facility]:[place] : 1940 Planned Disposition: Home Anticipated Discharge Date: Discharge Date: 10/15/2019 Expected LOS: Initial Reviewer: [id number] Initial Review Date: 10/02/2019 Generated: 10/15/19 4:59 pm Comments DCP- Discharge Planning Updated by [email or web address]: Kassandra Collado on 10/15/19 12:[address] Patient will be discharging home today. Her granddaughter will be her trash collector truck driver home. she has home instead that comes 3 days a week. she did not think that she needed anything else. she stated that dr Velasquez was sending out a nurse. [facility] [employer] will be coming out to her home. 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 a P2P can be done by Monday09/17/19 @ 1645 Opt 4 DCP- Discharge Planning Updated by [id number]: Lubna Hyde on 10/03/19 4:[address] Patient Name: AVI GROVES Admission Status: ER Accout number: [id number] Admission Date: 10-02-2019 : 1940 Admission Diagnosis: Attending: ETHEL SALEEM Current LOS: 1 Anticipated DC Date: Planned Disposition: Primary Insurance: MEDICARE A & B Discharge Planning Comments: CM met with patient to complete initial dc planning assessment. CM educated patient on the CM role and verbal consent given by patient to complete assessment. Patient lives at home alone. Patient is independent. At discharge patient plans to return home and feels this is a safe discharge.CM discussed availability of home health, rehab services, and medical equipment. Patient states that she has care givers from home instead that comes out 3 times a week to assist in the home.Patient will have family to transport home. Patient denied known discharge needs at this time. CM will continue to follow and will assist as needed with dc plans/needs. Crew Car Driver: Lubna Hyde DCPIA - Discharge Planning Initial Assessment Updated by [email or web address]: Lubna Hyde on 10/03/19 5:31 pm * Is the patient Alert and Oriented? Yes * How many steps to enter\exit or inside your home? ramp * PCP KARLO * Pharmacy [facility] * Preadmission Environment Home Alone * ADLs Independent * Other Equipment WALKER, CANE * List name and contact numbers for known caregivers / representatives who currently or will assist patient after discharge: MUKESH HERRON - GD - [phone] * Verbal permission to speak to the caregivers and representatives has been obtained from the patient. Yes * Community resources currently utilized Private Duty Care * Please name any agencies selected above. [facility] * Additional services required to return to the preadmission environment? No * Can the patient safely return to the preadmission environment? Yes * Has this patient been hospitalized within the prior 30 days at any hospital? Yes Coverage Notice Reviewer: [email or web address] Ines Collado Notice Issued Date-Time: 10/15/2019 13:45 Notice Type: IM Discharge Notice Notice Delivered To: Patient Relationship to Patient: Woven Blind Loom Tender Name: Delivery Method: HAND - Hand Delivered Sharlene Days: Prior Verbal Notification: Recipient Understood Notice: Yes Recipient Signature: Yes Med Rec Note Co-signed by Attending: Coverage Notice Comment: Last DP export: 10/15/19 12:57 pm Patient Name: AVI GROVES Page [id number] at 1600 All edits/amendments must be made on the electronic document DICTATION DATE: 10/15/19 1559 MACHINE III COREMAKER: TRUDY 10/15/19 1559 RPT#: [id number] DC DATE:10/15/19 STATUS: DIS IN [facility] [address] [place] [address] END OF REPORT
== END 2019-10-15 15:10 | disposition home or self-care (01) | DRG 176 ==
LOC: D.ER 00:30 → D.M2 05:43 → OBSVTIME 05:58 → D.MS 05:59 → D.ICU 05:59 → D.M2 05:59 → D.ICU 06:36 → D.MS 10-04 06:58
PROVIDERS: Emergency Medicine; Family Medicine; Internal Medicine Gastroenterology; ADMIT Family Medicine; ATTEND Family Medicine
PROC: 0W3P8ZZ Control Bleeding in Gastrointestinal Tract, Via Natural or Artificial Opening Endoscopic (ICD-10-PCS; principal; 2019-10-02 15:30)
DX: I26.99 Other pulmonary embolism without acute cor pulmonale (principal); I13.0 Hypertensive heart and chronic kidney disease with heart failure and stage 1 through stage 4 chronic kidney disease, or unspecified chronic kidney disease; K92.2 Gastrointestinal hemorrhage, unspecified; N39.0 Urinary tract infection, site not specified; D62 Acute posthemorrhagic anemia; Z79.01 Long term (current) use of anticoagulants; E11.22 Type 2 diabetes mellitus with diabetic chronic kidney disease; N18.3 Chronic kidney disease, stage 3 (moderate); I50.9 Heart failure, unspecified; E78.5 Hyperlipidemia, unspecified; K21.9 Gastro-esophageal reflux disease without esophagitis; F32.9 Major depressive disorder, single episode, unspecified; I25.119 Atherosclerotic heart disease of native coronary artery with unspecified angina pectoris; R06.09 Other forms of dyspnea

== ENCOUNTER 2019-11-20 12:49 | Emergency (ER) | payer MEDICARE, MEDICAID ==
[~2019-11-20] VITALS: Ht 165.1 cm; Wt 105.5 kg
[2019-11-20 13:06] VITALS: Ht 165.1 cm; Wt 105.5 kg
[2019-11-20 14:14] LABS: BASOPHILS 0.5 % (0-2); HEMATOCRIT 20.7 % (36.0-48.0); MCH 29.4 pg (26.0-34.0); MCHC 30.4 g/dL (31.0-37.0); MCV 96.7 fL (80.0-100.0); MEAN PLATELET VOLUME 9.8 fL (7.4-10.4); MONOCYTES 10.4 % (2-11); NEUTROPHILS 66.1 % (40-80); PLATELET COUNT 268 10x3/uL (130-400); RBC 2.14 10x6/uL (4.00-5.40); RDW 18.8 % (11.5-14.5); WBC 4.1 10x3/uL (4.8-10.8)
[2019-11-20 14:17] LABS: ANION GAP 6.2 mmol/L (8-16); CALCIUM 8.1 mg/dL (8.5-10.1); CARBON DIOXIDE 32.6 mmol/L (21.0-32.0); CREATININE - SERUM 1.3 mg/dL (0.6-1.3); POTASSIUM - SERUM 3.8 mmol/L (3.5-5.1)
[2019-11-20 14:22] LABS: ALBUMIN 2.9 g/dL (3.4-5.0); BILIRUBIN - TOTAL 0.25 mg/dL (0.2-1.3); PROTEIN - SERUM 5.6 g/dL (6.4-8.2)
[2019-11-20 14:29] LABS: HEMOGLOBIN 6.3 g/dL (12-16)
[2019-11-20 15:13] LABS: INR 1.44 (0.85-1.17); PROTIME 17.4 SECONDS (11.6-15.0)
[2019-11-20 15:19] LABS: BILIRUBIN NEGATIVE (NEGATIVE); KETONE NEGATIVE (NEGATIVE); NITRITE NEGATIVE (NEGATIVE); UROBILINOGEN NORMAL mg/dL (< 2)
[2019-11-20 15:20] LABS: BACTERIA MANY HPF (NONE SEEN); EPITHELIAL CELLS 0-5 /hpf (0-5); WHITE CELLS - URINE 25-50 HPF (0-4)
[2019-11-21 02:01] VITALS: BP 145/57
== END 2019-11-21 02:01 | disposition other institution (70) ==
LOC: D.ER 12:49
PROVIDERS: Family Medicine
DX: K92.2 Gastrointestinal hemorrhage, unspecified (principal); D50.0 Iron deficiency anemia secondary to blood loss (chronic); I95.9 Hypotension, unspecified; E11.9 Type 2 diabetes mellitus without complications; Z79.84 Long term (current) use of oral hypoglycemic drugs; I10 Essential (primary) hypertension; I50.9 Heart failure, unspecified; Z95.5 Presence of coronary angioplasty implant and graft; K21.9 Gastro-esophageal reflux disease without esophagitis

== ENCOUNTER → 2020-04-09 12:58 | Outpatient (CLI) | payer MEDICARE, MEDICAID ==
[2019-11-20 13:06] VITALS: BMI 38.6
[2020-04-09 14:27] LABS: BASOPHILS 1.8 % (0-2); HEMATOCRIT 39.4 % (36.0-48.0); HEMOGLOBIN 12.9 g/dL (12-16); LYMPHOCYTE ABS# 1.31 10x3/uL (1.18-3.74); LYMPHOCYTES 33.4 % (15-50); MCH 30.4 pg (26.0-34.0); MCHC 32.7 g/dL (31.0-37.0); MCV 92.7 fL (80.0-100.0); MEAN PLATELET VOLUME 10.6 fL (7.4-10.4); MONOCYTES 12.5 % (2-11); NEUTROPHIL ABS# 2.01 10x3/uL (1.56-6.13); NEUTROPHILS 51.3 % (40-80); PLATELET COUNT 232 10x3/uL (130-400); RBC 4.25 10x6/uL (4.00-5.40); RDW 16.2 % (11.5-14.5); WBC 3.9 10x3/uL (4.8-10.8)
== END | disposition home or self-care (01) ==
LOC: D.RAD 03-24 11:00
PROVIDERS: ATTEND Internal Medicine Gastroenterology
DX: D64.9 Anemia, unspecified (principal); K21.9 Gastro-esophageal reflux disease without esophagitis